=== PATIENT | female | born 1995 | race Caucasian/White ===

== ENCOUNTER 2017-06-25 20:18 | Emergency (ER) | payer OTHER ==
[2017-06-25 20:27] VITALS: RESP 16
[2017-06-25] MEDS ORDERED: ONDANSETRON 4 MG/2 ML VIAL IVP STA (20:45)
[2017-06-25] MEDS ORDERED: FAMOTIDINE 20 MG/2 ML VIAL IV STA (20:45)
[2017-06-25] MEDS ORDERED: SODIUM CHLORIDE 0.9% 1,000 ML IV STA (20:45)
--- NOTE | 2017-06-25 20:49 | ED ---
Abdominal Pain HPI - General Chief Complaint: Abdominal Pain Stated Complaint: Abd pain Time Seen by Provider: 06/25/17 20:40 Source: patient, RN notes reviewed Mode of arrival: ambulatory Limitations: no limitations - History of Present Illness Initial Comments: Is a 21-year-old female presents emergency Department chief complaint abdominal pain started this morning around 5:30 AM. Patient states it's in her midabdomen nonradiating. She states is sharp pain. She states it does affect her epigastric region. Patient states she has been burping more in which it tastes acidic. Patient states that she's had nausea and vomiting throughout the day but denies any fever, chills, diarrhea constipation. She did have normal bowel movement. Denies any chance of . She states that she's had no urinary frequency no hematuria or dysuria. Patient had no prior abdominal surgeries. - Related Data Home Medications Medication Instructions Recorded Confirmed Ethinyl Estradiol/Drospirenone 1 tab PO DAILY 06/25/17 06/25/17 [Chapis 28 Tablet] Previous Rx's Medication Instructions Recorded Omeprazole [PriLOSEC] 20 mg PO AC-BRKFST #14 cap 06/25/17 Ondansetron Odt [Zofran Odt] 4 mg PO Q8HR PRN #10 tab 06/25/17 Allergies Allergy/AdvReac Type Severity Reaction Status Date / Time No Known Allergies Allergy Verified 06/25/17 20:24 Review of Systems ROS Statement: Those systems with pertinent positive or pertinent negative responses have been documented in the HPI. ROS Other: All systems not noted in ROS Statement are negative. Past Medical History Past Medical History: No Reported History History of Any Multi-Drug Resistant Organisms: None Reported Past Surgical History: Adenoidectomy, Ear Surgery, Orthopedic Surgery, Tonsillectomy Additional Past Surgical History / Comment(s): right ankle Past Psychological History: Anxiety Smoking Status: Never smoker Past Alcohol Use History: Rare Past Drug Use History: None Reported General Exam Limitations: no limitations General appearance: alert, in no apparent distress ENT exam: Present: normal oropharynx Neck exam: Present: normal inspection. Absent: tenderness, meningismus, lymphadenopathy Respiratory exam: Present: normal lung sounds bilaterally. Absent: respiratory distress, wheezes, rales, rhonchi, stridor Cardiovascular Exam: Present: regular rate, normal rhythm, normal heart sounds. Absent: systolic murmur, diastolic murmur, rubs, gallop, clicks GI/Abdominal exam: Present: soft, tenderness (Moderate epigastric tenderness), normal bowel sounds. Absent: distended, guarding, rebound, rigid Back exam: Absent: CVA tenderness (R), CVA tenderness (L) Skin exam: Present: warm, dry, intact, normal color. Absent: rash Course Vital Signs 06/25/17 20:24 Temperature 98.2 F Pulse Rate 116 H Respiratory 16 Rate Blood Pressure 134/82 O2 Sat by Pulse 98 Oximetry Medical Decision Making - Medical Decision Making 21-year-old female presented emergency from for abdominal pain. Patient's lab work, x-ray within normal limits. Patient is improved after Pepcid IV fluids and Zofran. He should be discharged with omeprazole and Zofran. Return parameters were discussed. - Lab Data Result diagrams: 06/25/17 21:13 06/25/17 21:13 Lab Results 06/25/17 06/25/17 06/25/17 Range/Units 20:52 20:52 21:13 WBC (3.8-10.6) k/uL RBC (3.80-5.40) m/uL Hgb (11.4-16.0) gm/dL Hct (34.0-46.0) % MCV (80.0-100.0) fL MCH (25.0-35.0) pg MCHC (31.0-37.0) g/dL RDW (11.5-15.5) % Plt Count (150-450) k/uL Neutrophils % % Lymphocytes % % Monocytes % % Eosinophils % % Basophils % % Neutrophils # (1.3-7.7) k/uL Lymphocytes # (1.0-4.8) k/uL Monocytes # (0-1.0) k/uL Eosinophils # (0-0.7) k/uL Basophils # (0-0.2) k/uL Sodium 140 (137-145) mmol/L Potassium 4.2 (3.5-5.1) mmol/L Chloride 105 (98-107) mmol/L Carbon Dioxide 24 (22-30) mmol/L Anion Gap 11 mmol/L BUN 9 (7-17) mg/dL Creatinine 0.77 (0.52-1.04) mg/dL Est GFR (MDRD) Af Amer >60 (>60 ml/min/1.73 sqM) Est GFR (MDRD) Non-Af >60 (>60 ml/min/1.73 sqM) Glucose 109 H (74-99) mg/dL Calcium 9.1 (8.4-10.2) mg/dL Total Bilirubin 0.3 (0.2-1.3) mg/dL AST 19 (14-36) U/L ALT 31 (9-52) U/L Alkaline Phosphatase 78 (38-126) U/L Total Protein 6.9 (6.3-8.2) g/dL Albumin 3.9 (3.5-5.0) g/dL Amylase 31 (30-110) U/L Lipase 85 (23-300) U/L Urine Color Yellow Urine Appearance Clear (Clear) Urine pH 6.0 (5.0-8.0) Ur Specific [place] 1.014 (1.001-1.035) Urine Protein Negative (Negative) Urine Glucose (UA) Negative (Negative) Urine Ketones Negative (Negative) Urine Blood Small H (Negative) Urine Nitrite Negative (Negative) Urine Bilirubin Negative (Negative) Urine Urobilinogen <2.0 (<2.0) mg/dL Ur Leukocyte Esterase Trace H (Negative) Urine RBC 1 (0-5) /hpf Urine WBC 7 H (0-5) /hpf Ur Squamous Epith Cells 5 H (0-4) /hpf Amorphous Sediment Rare H (None) /hpf Urine Bacteria Few H (None) /hpf Urine Mucus Rare H (None) /hpf Urine HCG, Qual Not Detected (Not Detectd) 06/25/17 Range/Units 21:13 WBC 10.4 (3.8-10.6) k/uL RBC 4.54 (3.80-5.40) m/uL Hgb 13.2 (11.4-16.0) gm/dL Hct 38.8 (34.0-46.0) % MCV 85.5 (80.0-100.0) fL MCH 29.0 (25.0-35.0) pg MCHC 33.9 (31.0-37.0) g/dL RDW 13.8 (11.5-15.5) % Plt Count 367 (150-450) k/uL Neutrophils % 54 % Lymphocytes % 37 % Monocytes % 4 % Eosinophils % 3 % Basophils % 0 % Neutrophils # 5.6 (1.3-7.7) k/uL Lymphocytes # 3.9 (1.0-4.8) k/uL Monocytes # 0.4 (0-1.0) k/uL Eosinophils # 0.3 (0-0.7) k/uL Basophils # 0.0 (0-0.2) k/uL Sodium (137-145) mmol/L Potassium (3.5-5.1) mmol/L Chloride (98-107) mmol/L Carbon Dioxide (22-30) mmol/L Anion Gap mmol/L BUN (7-17) mg/dL Creatinine (0.52-1.04) mg/dL Est GFR (MDRD) Af Amer (>60 ml/min/1.73 sqM) Est GFR (MDRD) Non-Af (>60 ml/min/1.73 sqM) Glucose (74-99) mg/dL Calcium (8.4-10.2) mg/dL Total Bilirubin (0.2-1.3) mg/dL AST (14-36) U/L ALT (9-52) U/L Alkaline Phosphatase (38-126) U/L Total Protein (6.3-8.2) g/dL Albumin (3.5-5.0) g/dL Amylase (30-110) U/L Lipase (23-300) U/L Urine Color Urine Appearance (Clear) Urine pH (5.0-8.0) Ur Specific [place] (1.001-1.035) Urine Protein (Negative) Urine Glucose (UA) (Negative) Urine Ketones (Negative) Urine Blood (Negative) Urine Nitrite (Negative) Urine Bilirubin (Negative) Urine Urobilinogen (<2.0) mg/dL Ur Leukocyte Esterase (Negative) Urine RBC (0-5) /hpf Urine WBC (0-5) /hpf Ur Squamous Epith Cells (0-4) /hpf Amorphous Sediment (None) /hpf Urine Bacteria (None) /hpf Urine Mucus (None) /hpf Urine HCG, Qual (Not Detectd) Disposition Clinical Impression: Abdominal pain, Gastritis, Nausea & vomiting Disposition: HOME SELF-CARE Condition: Stable Instructions: Gastritis (ED) Additional Instructions: Please return to the Emergency Department if symptoms worsen or any other concerns. Prescriptions: Omeprazole [PriLOSEC] 20 mg PO AC-BRKFST #14 cap Ondansetron Odt [Zofran Odt] 4 mg PO Q8HR PRN #10 tab PRN Reason: Nausea Referrals: Sarath Sykes DO [Primary Care Provider] - 1-2 days Time of Disposition: 22:02
[2017-06-25 21:10] LABS: Amorphous Sediment,Urine Rare /hpf; Appearance,Urine Clear (Clear); Bacteria,Urine Few /hpf; Bilirubin,Urine Negative (Negative); Glucose,Urine (UA) Negative (Negative); Ketones,Urine Negative (Negative); Leukocyte Esterase,Urine Trace (Negative); Mucus,Urine Rare /hpf; Nitrite,Urine Negative (Negative); Particle Count 3423; Protein,Urine Negative (Negative); RBC,Urine 1 /hpf (0-5); Specific Gravity,Urine 1.014 (1.001-1.035); Squamous Epithelial Cell,Urine 5 /hpf (0-4); UA Billing (MACRO vs. MICRO) MICRO; Urobilinogen,Urine <2.0 mg/dL (<2.0); WBC,Urine 7 /hpf (0-5)
--- NOTE | 2017-06-25 21:31 | XR ---
EXAMINATION TYPE: XR KUB DATE OF EXAM: 06/25/2017 COMPARISON: NONE HISTORY: Flank pain TECHNIQUE: 2 views FINDINGS: Bowel gas pattern is normal. There is no sign of intestinal obstruction or pneumoperitoneum . Fecal pattern is normal. Lung bases are clear. There are no pathologic calcifications over the kidn eys. IMPRESSION: Nonacute abdomen.
[2017-06-25 21:34] LABS: Basophils % (A) 0 %; CH 28.1; Eosinophils # (A) 0.3 k/uL (0-0.7); Eosinophils % (A) 3 %; HCT 38.8 % (34.0-46.0); HDW 2.37; HGB 13.2 gm/dL (11.4-16.0); Luc # (Auto) 0.19; Luc % (Auto) 2; Lymphocytes # (A) 3.9 k/uL (1.0-4.8); Lymphocytes % (A) 37 %; MCHC 33.9 g/dL (31.0-37.0); MCV 85.5 fL (80.0-100.0); Monocytes # (A) 0.4 k/uL (0-1.0); Monocytes % (A) 4 %; Neutrophils # (A) 5.6 k/uL (1.3-7.7); Neutrophils % (A) 54 %; RBC 4.54 m/uL (3.80-5.40); RDW 13.8 % (11.5-15.5); WBC 10.4 k/uL (3.8-10.6); WBC (Perox) 10.34
[2017-06-25 21:42] LABS: ALT 31 U/L (9-52); AST 19 U/L (14-36); Alkaline Phosphatase 78 U/L (38-126); Amylase 31 U/L (30-110); Anion Gap 11 mmol/L; Blood Urea Nitrogen 9 mg/dL (7-17); Calcium 9.1 mg/dL (8.4-10.2); Carbon Dioxide 24 mmol/L (22-30); Chloride 105 mmol/L (98-107); Glucose 109 mg/dL (74-99); Non-African American GFR(MDRD) >60 (>60 ml/min/1.73 sqM); Potassium 4.2 mmol/L (3.5-5.1); Sodium 140 mmol/L (137-145); Total Bilirubin 0.3 mg/dL (0.2-1.3); Total Protein 6.9 g/dL (6.3-8.2)
[2017-06-25 22:08] VITALS: BP 129/66; PULSE 87; TEMP 97.9
--- NOTE | 2017-06-29 02:08 | CDI ---
Documentation Clarification OP Dear Dr.Christophe Epifanio Tomas Please do addendum to ED report for missing NS stop time. Thank you, [place] [employer] If you have any questions, please contact Employment Interviewer at [phone] [facility]
== END 2017-06-25 22:10 | disposition home or self-care (01) ==
LOC: EC 20:18
DX: K29.70 Gastritis, unspecified, without bleeding (principal); Z79.3 Long term (current) use of hormonal contraceptives
CPT/HCPCS: 36415; 80053; 82150; 83690; 85025; 81001; 81025; 74000; 99284; 96374; 96375; J2405

== ENCOUNTER → 2017-08-07 | Outpatient (CLI) | payer OTHER ==
--- NOTE | 2017-08-07 08:37 | US ---
EXAMINATION TYPE: US abdomen complete DATE OF EXAM: 08/07/2017 COMPARISON: NONE CLINICAL HISTORY: R10.11 Right upper quadrant pain. Abd pain with vomiting on and off for months EXAM MEASUREMENTS: Liver Length: 14.8 cm Gallbladder Wall: 0.2 cm CBD: 0.5 cm Spleen: 10.9 cm Right Kidney: 9.5 x 4.8 x 4.3 cm Left Kidney: 10.9 x 4.9 x 5.6 cm overlying bowel gas and body habitus limits exam Pancreas: portions seen appear wnl Liver: difficult to penetrate with intercostal imaging included. Portal triads are well visualized a nd hepatic echotexture is homogeneous. Gallbladder: wnl Evidence for sonographic Mcnulty's sign: no CBD: wnl Spleen: wnl Right Kidney: wnl Left Kidney: wnl Upper IVC: wnl Abd Aorta: wnl IMPRESSION: No sonographic evidence of cholelithiasis or cholecystitis. Unremarkable abdominal ultras ound.
== END ==
LOC: RADUSWWP 06:49
PROVIDERS: ATTEND Family Medicine
DX: R10.11 Right upper quadrant pain (principal)
CPT/HCPCS: 76700

== ENCOUNTER 2018-02-23 00:58 | Emergency (ER) | payer OTHER ==
[2018-02-23 01:06] VITALS: BP 146/94; PULSE 100; RESP 18; TEMP 98
[2018-02-23] MEDS ORDERED: KETOROLAC 30 MG/ML 1 ML VIAL IM STA (01:59)
[2018-02-23] MEDS ORDERED: ORPHENADRINE 30 MG/ML 2 ML VIAL IM STA (01:59)
--- NOTE | 2018-02-23 02:02 | ED ---
Back Pain HPI - General Chief Complaint: Back Pain/Injury Stated Complaint: back pain radiating to hips Time Seen by Provider: 02/23/18 01:47 Source: patient Limitations: physical limitation - History of Present Illness Initial Comments: 22-year-old female patient percents to the emergency department today for evaluation of increased lower back pain. Patient states that she has problems with her back for the last 2 years. Patient states that recently got rid of their bed and she has been sleeping on the floor. States that her back pain has been worse for the last 2 days. She denies any radiation of the pain down her legs. Denies any numbness, tingling, loss of bowel or bladder control, or saddle anesthesia. Denies any hematuria, dysuria, urinary frequency, urinary urgency. She denies any chance of , states that she takes control. Denies any significant change to her pain, states it is just worse in severity. She denies any falls or injuries. Patient denies any recent rash, fever, chills, shortness breath, chest pain, abdominal pain, nausea, vomiting, diarrhea, constipation, dizziness, weakness, headache, visual changes, or any other complaints. - Related Data Home Medications Medication Instructions Recorded Confirmed Ethinyl Estradiol/Drospirenone 1 tab PO DAILY 06/25/17 06/25/17 [Chapis 28 Tablet] Previous Rx's Medication Instructions Recorded Omeprazole [PriLOSEC] 20 mg PO AC-BRKFST #14 cap 06/25/17 Ondansetron Odt [Zofran Odt] 4 mg PO Q8HR PRN #10 tab 06/25/17 Cyclobenzaprine [Flexeril] 10 mg PO TID #15 tab 02/23/18 Ibuprofen [Motrin] 600 mg PO Q8HR PRN #30 tab 02/23/18 Allergies Allergy/AdvReac Type Severity Reaction Status Date / Time No Known Allergies Allergy Verified 02/23/18 01:06 Review of Systems ROS Statement: Those systems with pertinent positive or pertinent negative responses have been documented in the HPI. ROS Other: All systems not noted in ROS Statement are negative. Past Medical History Past Medical History: No Reported History History of Any Multi-Drug Resistant Organisms: None Reported Past Surgical History: Adenoidectomy, Ear Surgery, Orthopedic Surgery, Tonsillectomy Additional Past Surgical History / Comment(s): right ankle, Past Psychological History: Anxiety Smoking Status: Current some day smoker Past Alcohol Use History: Occasional Past Drug Use History: None Reported General Exam Limitations: physical limitation General appearance: alert, in no apparent distress, other (This is a well- developed, well-nourished adult female patient in no acute distress. Vital signs upon presentation are temperature 98.0F, pulse 100, respirations 18, blood pressure 146/94, pulse ox 96% on room air.) Eye exam: Present: normal appearance, PERRL, EOMI. Absent: scleral icterus, conjunctival injection, periorbital swelling ENT exam: Present: normal exam, normal oropharynx, mucous membranes moist Respiratory exam: Present: normal lung sounds bilaterally. Absent: respiratory distress, wheezes, rales, rhonchi, stridor Cardiovascular Exam: Present: regular rate, normal rhythm, normal heart sounds. Absent: systolic murmur, diastolic murmur, rubs, gallop, clicks GI/Abdominal exam: Present: soft, normal bowel sounds. Absent: distended, tenderness, guarding, rebound, rigid Extremities exam: Present: normal inspection, full ROM, normal capillary refill , other (Lower eduction razor pink, warm, and dry. Cap refills less than 3 seconds. Post tibial pulses are 2+ and equal bilaterally.). Absent: tenderness , pedal edema, joint swelling, calf tenderness Back exam: Present: normal inspection. Absent: vertebral tenderness Neurological exam: Present: alert, oriented X3, CN II-XII intact Psychiatric exam: Present: normal affect, normal mood Skin exam: Present: warm, dry, intact, normal color. Absent: rash Course Vital Signs 02/23/18 01:02 Temperature 98.0 F Pulse Rate 100 Respiratory 18 Rate Blood Pressure 146/94 O2 Sat by Pulse 96 Oximetry Medical Decision Making - Medical Decision Making 22-year-old female patient presented to the emergency department today for complaints of increased back pain after slipping on the floor for over a week. Physical examination is unremarkable. Patient is neurologically intact. Urinalysis is negative for infection. Patient is not . We'll discharge home with anti-inflammatories and muscle relaxers. She is instructed to follow-up with her primary care physician for recheck in 1-2 days. Return parameters discussed in detail. She verbalizes understanding and agrees with this plan. - Lab Data Lab Results 02/23/18 02/23/18 Range/Units 01:48 01:48 Urine Color Yellow Urine Appearance Cloudy H (Clear) Urine pH 6.0 (5.0-8.0) Ur Specific [place] 1.024 (1.001-1.035) Urine Protein Trace H (Negative) Urine Glucose (UA) Negative (Negative) Urine Ketones Negative (Negative) Urine Blood Negative (Negative) Urine Nitrite Negative (Negative) Urine Bilirubin Negative (Negative) Urine Urobilinogen <2.0 (<2.0) mg/dL Ur Leukocyte Esterase Small H (Negative) Urine RBC 2 (0-5) /hpf Urine WBC 3 (0-5) /hpf Ur Squamous Epith Cells 11 H (0-4) /hpf Urine Mucus Moderate H (None) /hpf Urine HCG, Qual Not Detected (Not Detectd) Disposition Clinical Impression: Acute exacerbation of chronic low back pain Disposition: HOME SELF-CARE Condition: Good Instructions: Chronic Back Pain (ED) Additional Instructions: Apply warm moist heat to the back. Take medications as directed. Follow up with her primary care physician for recheck. Return here immediately for any new, worsening, or concerning symptoms. Prescriptions: Cyclobenzaprine [Flexeril] 10 mg PO TID #15 tab Ibuprofen [Motrin] 600 mg PO Q8HR PRN #30 tab PRN Reason: Pain Is patient prescribed a controlled substance at d/c from ED?: No Referrals: Sarath Sykes DO [Primary Care Provider] - 1-2 days Time of Disposition: 02:42
[2018-02-23 02:15] LABS: Appearance,Urine Cloudy (Clear); Bilirubin,Urine Negative (Negative); Blood,Urine Negative (Negative); Color,Urine Yellow; Glucose,Urine (UA) Negative (Negative); Ketones,Urine Negative (Negative); Leukocyte Esterase,Urine Small (Negative); Mucus,Urine Moderate /hpf; Nitrite,Urine Negative (Negative); Protein,Urine Trace (Negative); RBC,Urine 2 /hpf (0-5); Specific Gravity,Urine 1.024 (1.001-1.035); Squamous Epithelial Cell,Urine 11 /hpf (0-4); Urobilinogen,Urine <2.0 mg/dL (<2.0); WBC,Urine 3 /hpf (0-5)
== END 2018-02-23 02:57 | disposition home or self-care (01) ==
LOC: EC 00:58
DX: M54.5 Low back pain (principal); G89.29 Other chronic pain; F17.200 Nicotine dependence, unspecified, uncomplicated; Z79.3 Long term (current) use of hormonal contraceptives
CPT/HCPCS: 81001; 81025; 99283; 96372 ×2; J2360; J1885

== ENCOUNTER 2018-05-25 21:23 | Emergency (ER) | payer OTHER ==
--- NOTE | 2018-05-25 22:49 | ED ---
General Adult HPI - General Chief complaint: Chest Pain Stated complaint: Chest pain Time Seen by Provider: 05/25/18 22:39 Source: patient, RN notes reviewed Mode of arrival: ambulatory Limitations: no limitations - History of Present Illness Initial comments: Patient is a pleasant 22-year-old female presenting to the emergency department with chest discomfort. Onset was just around an hour ago. Patient was smoking and had a coughing spell. Patient developed chest discomfort shortly after that. Discomfort is sharp and in the sternal region. Discomfort does increase with positional changes. Patient also has some lower back discomfort however this is chronic and unchanged. No leg pain or leg swelling. No dyspnea - Related Data Home Medications Medication Instructions Recorded Confirmed Acetaminophen/Diphenhydramine 1 tab PO HS PRN 05/25/18 05/25/18 [Tylenol PM Extra Strength] Vitamin C/Biotin [Hair, Skin and 1 tab PO DAILY 05/25/18 05/25/18 Nails] Allergies Allergy/AdvReac Type Severity Reaction Status Date / Time No Known Allergies Allergy Verified 05/25/18 22:58 Review of Systems ROS Statement: Those systems with pertinent positive or pertinent negative responses have been documented in the HPI. ROS Other: All systems not noted in ROS Statement are negative. Constitutional: Denies: fever Eyes: Denies: eye pain ENT: Denies: ear pain Respiratory: Reports: cough. Denies: dyspnea Cardiovascular: Reports: chest pain Endocrine: Denies: fatigue Gastrointestinal: Denies: abdominal pain Genitourinary: Denies: dysuria Musculoskeletal: Reports: back pain (Chronic) Skin: Denies: rash Neurological: Denies: weakness Past Medical History Past Medical History: No Reported History Additional Past Medical History / Comment(s): chronic back pain History of Any Multi-Drug Resistant Organisms: None Reported Past Surgical History: Adenoidectomy, Ear Surgery, Orthopedic Surgery, Tonsillectomy Additional Past Surgical History / Comment(s): right ankle, Past Psychological History: Anxiety Smoking Status: Current every day smoker Past Alcohol Use History: Occasional Past Drug Use History: None Reported General Exam Limitations: no limitations General appearance: alert, in no apparent distress Head exam: Present: atraumatic Eye exam: Present: normal appearance, PERRL ENT exam: Present: normal oropharynx Neck exam: Present: normal inspection Respiratory exam: Present: normal lung sounds bilaterally, chest wall tenderness Cardiovascular Exam: Present: regular rate, normal rhythm Expanded Peripheral pulses: 2+: Dorsalis Pedis (R), Dorsalis Pedis (L) GI/Abdominal exam: Present: soft. Absent: distended, tenderness Extremities exam: Present: normal inspection. Absent: pedal edema, calf tenderness Back exam: Present: normal inspection. Absent: tenderness, vertebral tenderness Neurological exam: Present: alert Psychiatric exam: Present: normal affect, normal mood Skin exam: Present: normal color Course Vital Signs 05/25/18 21:45 Temperature 99.1 F Pulse Rate 101 H Respiratory 20 Rate Blood Pressure 122/86 O2 Sat by Pulse 100 Oximetry EKG Findings - EKG Comments: EKG Findings:: Normal sinus rhythm 90. NH 112. QRS 82. QT 382. QTC were 37. Normal axis. Normal QRS. No acute ST change. Medical Decision Making - Medical Decision Making Patient reevaluated and resting comfortably in bed. Patient states symptoms have somewhat improved. Patient updated on results. - Lab Data Result diagrams: 05/25/18 23:26 05/25/18 23:26 Lab Results 05/25/18 05/25/18 05/25/18 Range/Units 23:10 23:10 23:26 WBC 11.1 H (3.8-10.6) k/uL RBC 4.49 (3.80-5.40) m/uL Hgb 11.4 (11.4-16.0) gm/dL Hct 36.1 (34.0-46.0) % MCV 80.3 (80.0-100.0) fL MCH 25.4 (25.0-35.0) pg MCHC 31.6 (31.0-37.0) g/dL RDW 14.1 (11.5-15.5) % Plt Count 321 (150-450) k/uL Neutrophils % 57 % Lymphocytes % 36 % Monocytes % 5 % Eosinophils % 1 % Basophils % 0 % Neutrophils # 6.3 (1.3-7.7) k/uL Lymphocytes # 3.9 (1.0-4.8) k/uL Monocytes # 0.6 (0-1.0) k/uL Eosinophils # 0.1 (0-0.7) k/uL Basophils # 0.0 (0-0.2) k/uL PT (9.0-12.0) sec INR (<1.2) APTT (22.0-30.0) sec D-Dimer (<0.60) mg/L FEU Sodium (137-145) mmol/L Potassium (3.5-5.1) mmol/L Chloride (98-107) mmol/L Carbon Dioxide (22-30) mmol/L Anion Gap mmol/L BUN (7-17) mg/dL Creatinine (0.52-1.04) mg/dL Est GFR (CKD-EPI)AfAm (>60 ml/min/1.73 sqM) Est GFR (CKD-EPI)NonAf (>60 ml/min/1.73 sqM) Glucose (74-99) mg/dL Calcium (8.4-10.2) mg/dL Total Bilirubin (0.2-1.3) mg/dL AST (14-36) U/L ALT (9-52) U/L Alkaline Phosphatase (38-126) U/L Total Protein (6.3-8.2) g/dL Albumin (3.5-5.0) g/dL Urine Color Yellow Urine Appearance Cloudy H (Clear) Urine pH 6.0 (5.0-8.0) Ur Specific [place] 1.019 (1.001-1.035) Urine Protein Trace H (Negative) Urine Glucose (UA) Negative (Negative) Urine Ketones Negative (Negative) Urine Blood Negative (Negative) Urine Nitrite Negative (Negative) Urine Bilirubin Negative (Negative) Urine Urobilinogen <2.0 (<2.0) mg/dL Ur Leukocyte Esterase Large H (Negative) Urine RBC 3 (0-5) /hpf Urine WBC 25 H (0-5) /hpf Urine WBC Clumps Occasional H (None) /hpf Ur Squamous Epith Cells 8 H (0-4) /hpf Urine Bacteria Few H (None) /hpf Urine Mucus Occasional H (None) /hpf Urine HCG, Qual Not Detected (Not Detectd) 05/25/18 05/25/18 Range/Units 23:26 23:26 WBC (3.8-10.6) k/uL RBC (3.80-5.40) m/uL Hgb (11.4-16.0) gm/dL Hct (34.0-46.0) % MCV (80.0-100.0) fL MCH (25.0-35.0) pg MCHC (31.0-37.0) g/dL RDW (11.5-15.5) % Plt Count (150-450) k/uL Neutrophils % % Lymphocytes % % Monocytes % % Eosinophils % % Basophils % % Neutrophils # (1.3-7.7) k/uL Lymphocytes # (1.0-4.8) k/uL Monocytes # (0-1.0) k/uL Eosinophils # (0-0.7) k/uL Basophils # (0-0.2) k/uL PT 10.2 (9.0-12.0) sec INR 1.0 (<1.2) APTT 22.9 (22.0-30.0) sec D-Dimer 0.28 (<0.60) mg/L FEU Sodium 139 (137-145) mmol/L Potassium 4.1 (3.5-5.1) mmol/L Chloride 105 (98-107) mmol/L Carbon Dioxide 27 (22-30) mmol/L Anion Gap 7 mmol/L BUN 14 (7-17) mg/dL Creatinine 0.70 (0.52-1.04) mg/dL Est GFR (CKD-EPI)AfAm >90 (>60 ml/min/1.73 sqM) Est GFR (CKD-EPI)NonAf >90 (>60 ml/min/1.73 sqM) Glucose 99 (74-99) mg/dL Calcium 8.8 (8.4-10.2) mg/dL Total Bilirubin 0.2 (0.2-1.3) mg/dL AST 23 (14-36) U/L ALT 31 (9-52) U/L Alkaline Phosphatase 75 (38-126) U/L Total Protein 5.8 L (6.3-8.2) g/dL Albumin 3.5 (3.5-5.0) g/dL Urine Color Urine Appearance (Clear) Urine pH (5.0-8.0) Ur Specific [place] (1.001-1.035) Urine Protein (Negative) Urine Glucose (UA) (Negative) Urine Ketones (Negative) Urine Blood (Negative) Urine Nitrite (Negative) Urine Bilirubin (Negative) Urine Urobilinogen (<2.0) mg/dL Ur Leukocyte Esterase (Negative) Urine RBC (0-5) /hpf Urine WBC (0-5) /hpf Urine WBC Clumps (None) /hpf Ur Squamous Epith Cells (0-4) /hpf Urine Bacteria (None) /hpf Urine Mucus (None) /hpf Urine HCG, Qual (Not Detectd) - Radiology Data Radiology results: image reviewed (Chest x-ray shows no acute process) Disposition Clinical Impression: Chest pain Disposition: HOME SELF-CARE Condition: Stable Instructions: Chest Pain (ED) Additional Instructions: Please follow-up with primary care physician in the next day or 2 for recheck. Return for fevers, difficulty breathing, change or worsening in symptoms or other concerns. Is patient prescribed a controlled substance at d/c from ED?: No Referrals: Sarath Sykes DO [Primary Care Provider] - 1-2 days Time of Disposition: 00:12
[2018-05-25 23:22] LABS: Appearance,Urine Cloudy (Clear); Bacteria,Urine Few /hpf; Bilirubin,Urine Negative (Negative); Blood,Urine Negative (Negative); Color,Urine Yellow; Glucose,Urine (UA) Negative (Negative); Ketones,Urine Negative (Negative); Leukocyte Esterase,Urine Large (Negative); Mucus,Urine Occasional /hpf; Nitrite,Urine Negative (Negative); Protein,Urine Trace (Negative); RBC,Urine 3 /hpf (0-5); Specific Gravity,Urine 1.019 (1.001-1.035); Squamous Epithelial Cell,Urine 8 /hpf (0-4); Urobilinogen,Urine <2.0 mg/dL (<2.0); WBC,Urine 25 /hpf (0-5)
--- NOTE | 2018-05-25 23:25 | XR ---
EXAMINATION TYPE: XR chest 2V DATE OF EXAM: 05/25/2018 COMPARISON: NONE HISTORY: Chest pain TECHNIQUE: Frontal and lateral views of the chest are obtained. FINDINGS: Heart and mediastinum are normal. Lungs are clear. Diaphragm is normal. Bony thorax appear s normal. IMPRESSION: Normal chest
[2018-05-25 23:44] LABS: Basophils % (A) 0 %; Eosinophils # (A) 0.1 k/uL (0-0.7); Eosinophils % (A) 1 %; HCT 36.1 % (34.0-46.0); HGB 11.4 gm/dL (11.4-16.0); Lymphocytes # (A) 3.9 k/uL (1.0-4.8); Lymphocytes % (A) 36 %; MCH 25.4 pg (25.0-35.0); MCHC 31.6 g/dL (31.0-37.0); MCV 80.3 fL (80.0-100.0); Monocytes # (A) 0.6 k/uL (0-1.0); Monocytes % (A) 5 %; Neutrophils # (A) 6.3 k/uL (1.3-7.7); Neutrophils % (A) 57 %; Platelet Count 321 k/uL (150-450); RBC 4.49 m/uL (3.80-5.40); RDW 14.1 % (11.5-15.5); WBC 11.1 k/uL (3.8-10.6)
[2018-05-25 23:55] LABS: ALT 31 U/L (9-52); AST 23 U/L (14-36); Albumin 3.5 g/dL (3.5-5.0); Alkaline Phosphatase 75 U/L (38-126); Anion Gap 7 mmol/L; Blood Urea Nitrogen 14 mg/dL (7-17); Calcium 8.8 mg/dL (8.4-10.2); Carbon Dioxide 27 mmol/L (22-30); Chloride 105 mmol/L (98-107); Glucose 99 mg/dL (74-99); Potassium 4.1 mmol/L (3.5-5.1); Sodium 139 mmol/L (137-145); Total Bilirubin 0.2 mg/dL (0.2-1.3); Total Protein 5.8 g/dL (6.3-8.2)
[2018-05-25 23:58] LABS: D-Dimer 0.28 mg/L FEU (<0.60); Partial Thromboplastin Time 22.9 sec (22.0-30.0); Prothrombin Time 10.2 sec (9.0-12.0)
[2018-05-26] MEDS ORDERED: KETOROLAC 30 MG/ML 1 ML VIAL IVP STA (00:11)
[2018-05-26 00:24] VITALS: BP 130/74; PULSE 98; RESP 17; TEMP 97.6
== END 2018-05-26 00:24 | disposition home or self-care (01) ==
LOC: EC 21:23
DX: R07.89 Other chest pain (principal); F17.200 Nicotine dependence, unspecified, uncomplicated; Z79.899 Other long term (current) drug therapy
CPT/HCPCS: 36415; 93005; 85379; 80053; 85025; 85610; 85730; 81001; 81025; 71046; 99285; 96374; J1885

== ENCOUNTER 2018-06-08 21:56 | Emergency (ER) | payer OTHER ==
[2018-06-08 22:02] VITALS: BP 134/90; PULSE 89; RESP 18; TEMP 99
[2018-06-08] MEDS ORDERED: KETOROLAC 30 MG/ML 1 ML VIAL IM STA (22:23)
--- NOTE | 2018-06-08 22:23 | ED ---
Back Pain HPI - General Chief Complaint: Back Pain/Injury Stated Complaint: back pain Time Seen by Provider: 06/08/18 22:22 Source: patient Limitations: no limitations - History of Present Illness Initial Comments: 22-year-old female past medical history of chronic low-back pain who presents today for chief complaint of low back pain. Patient states that this might she woke up with increased low back pain from her baseline she stated that the pain was 8 out of 10 in the lumbar spine with radiation down the right leg. Patient stated that she taken up the pain. We spoke this evening the pain returned she decided to presents to emergency department for evaluation. Patient denies any dysuria, urgency, frequency, fever, chills, hematuria, IV drug use, recent weight loss, numbness, tingling, paresthesias, loss of sensation or muscle weakness of the lower external ears, saddle anesthesias, loss of bowel bladder control, or urinary retention, chest pain, shorts breath or any other symptoms. - Related Data Home Medications Medication Instructions Recorded Confirmed Acetaminophen/Diphenhydramine 1 tab PO HS PRN 05/25/18 05/25/18 [Tylenol PM Extra Strength] Vitamin C/Biotin [Hair, Skin and 1 tab PO DAILY 05/25/18 05/25/18 Nails] Previous Rx's Medication Instructions Recorded Ibuprofen [Motrin] 800 mg PO Q6H PRN 5 Days #20 tab 06/08/18 Allergies Allergy/AdvReac Type Severity Reaction Status Date / Time No Known Allergies Allergy Verified 06/08/18 22:03 Review of Systems ROS Statement: Those systems with pertinent positive or pertinent negative responses have been documented in the HPI. ROS Other: All systems not noted in ROS Statement are negative. Constitutional: Denies: fever, chills, weight change, night sweats Eyes: Denies: vision change ENT: Denies: ear pain Respiratory: Denies: cough, dyspnea, wheezes, hemoptysis, stridor Cardiovascular: Denies: chest pain, palpitations, orthopnea, edema Gastrointestinal: Denies: abdominal pain, nausea, vomiting, diarrhea, constipation Genitourinary: Denies: urgency, dysuria, frequency, hematuria Musculoskeletal: Reports: back pain. Denies: joint swelling, arthralgia Skin: Denies: rash, lesions Neurological: Denies: headache, weakness, numbness, paresthesias, confusion, abnormal gait Past Medical History Past Medical History: No Reported History Additional Past Medical History / Comment(s): chronic back pain History of Any Multi-Drug Resistant Organisms: None Reported Past Surgical History: Adenoidectomy, Ear Surgery, Orthopedic Surgery, Tonsillectomy Additional Past Surgical History / Comment(s): right ankle, Past Psychological History: Anxiety Smoking Status: Current every day smoker Past Alcohol Use History: Occasional Past Drug Use History: None Reported General Exam - General Exam Comments Initial Comments: General: The patient is awake and alert, in no distress, and does not appear acutely ill. Eye: Pupils are equal, round and reactive to light, extra-ocular movements are intact. No nystagmus. There is normal conjunctiva bilaterally. No signs of icterus. Ears, nose, mouth and throat: There are moist mucous membranes and no oral lesions. Neck: The neck is supple, there is no tenderness or JVD. Cardiovascular: There is a regular rate and rhythm. No murmur, rub or gallop is appreciated. Respiratory: Lungs are clear to auscultation, respirations are non-labored, breath sounds are equal. No wheezes, stridor, rales, or rhonchi. Musculoskeletal: Full range of motion with for flexion, extension, lateral flexion, rotation of the lumbar spine. Strength 5/5 of the lower extremities equally bilaterally. Sensation intact of the lower extremities equally bilaterally. DP pulses equal bilaterally 2+. Patient is able to heel and toe walk without difficulty. Tenderness to palpation midline over the lumbar spine. No rashes or lesions of the lumbar spine. Mild paravertebral tenderness on the right side. No CVA tenderness. +2 deep tendon reflexes of the lower extremities bilaterally. No evidence of myoclonus. No saddle paresthesia Neurological: A&O x 3. CN II-XII intact, There are no obvious motor or sensory deficits. Coordination appears grossly intact. Speech is normal. Skin: Skin is warm and dry and no rashes or lesions are noted. Psychiatric: Cooperative, appropriate mood & affect, normal judgment. Limitations: no limitations Course Vital Signs 06/08/18 22:00 Temperature 99 F Pulse Rate 89 Respiratory 18 Rate Blood Pressure 134/90 O2 Sat by Pulse 97 Oximetry Medical Decision Making - Medical Decision Making Patient given 30 mg IM injection of Toradol which he stated helped her low back slightly. X-rays lumbar spine revealed no acute process. Patient neurovascularly intact, no concern for cauda equina at this time. This is most likely lumbar strain. Remainder of ROS negative. Case is discussed with Dr. Dumont at this time we feel the patient is stable for discharge with primary care follow-up in 1-2 days as with RX for ibuprofen 800 for pain management as needed. Patient agreed plan and is discharged in stable condition. Disposition Clinical Impression: Low back pain Disposition: HOME SELF-CARE Condition: Good Instructions: Acute Low Back Pain (ED), Chronic Back Pain (ED) Additional Instructions: Please use over the counter medication as discussed. Please follow-up with family doctor in the next 2 days.. Please return to emergency room if the symptoms increase or worsen or for any other concerns. Prescriptions: Ibuprofen [Motrin] 800 mg PO Q6H PRN 5 Days #20 tab PRN Reason: Pain Is patient prescribed a controlled substance at d/c from ED?: No Referrals: Sarath Sykes DO [Primary Care Provider] - 1-2 days Time of Disposition: 22:53
--- NOTE | 2018-06-08 22:45 | XR ---
EXAMINATION TYPE: XR lumbar spine 2 or 3V DATE OF EXAM: 06/08/2018 COMPARISON: NONE HISTORY: Back pain TECHNIQUE: 3 views FINDINGS: Lumbar vertebra have normal spacing and alignment. Posterior elements are intact. Sacroilia c joints appear intact. IMPRESSION: Normal lumbar spine.
== END 2018-06-08 23:00 | disposition home or self-care (01) ==
LOC: EC 21:56
DX: M54.5 Low back pain (principal); F17.200 Nicotine dependence, unspecified, uncomplicated
CPT/HCPCS: 72100; 96372; 99283

== ENCOUNTER 2018-08-17 03:32 | Emergency (ER) | payer OTHER ==
[2018-08-17 03:39] VITALS: TEMP 98.6
[2018-08-17] MEDS ORDERED: SODIUM CHLORIDE 0.9% 500 ML 500 ML IV STA (03:43)
--- NOTE | 2018-08-17 04:07 | ED ---
Chest Pain HPI - General Chief Complaint: Chest Pain Stated Complaint: Racing heart Time Seen by Provider: 08/17/18 03:43 Source: patient Mode of arrival: ambulatory Limitations: no limitations - History of Present Illness Initial Comments: Dannielle is a morbidly obese 22-year-old female who presents the ED today via private vehicle for evaluation of chest pain and palpitations. 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 She used a nap on her phone to check her heart rate and noted that it was varying between [id number]. This made her worried and prompted her to come to the ER for evaluation. Patient reports that she had vague chest pain with these palpitations. She reports recent shortness of breath and states that she has been smoking less of her face due to the shortness of breath. She states she did not use her baby at all today. The patient has no personal cardiac history, no history of DVT or PE, she is currently not on any estrogen supplementation, has not had any recent long distance travel or leg immobilization, she has no known family history of clotting disorders. She does have a family history positive for early cardiac disease including an uncle who from congestive heart failure at age of 36. She is uncertain of other circumstances relating to his . She also states she had a grandfather that had a bad heart. Patient reports that she has occasional caffeine but didn't have any today. She denies any diet or workout supplementation. She denies any energy pills. She denies any caffeine intake to her knowledge. She denies any chocolate intake. - Related Data Allergies Allergy/AdvReac Type Severity Reaction Status Date / Time milk Allergy Nausea & Verified 08/17/18 03:39 Vomiting Review of Systems ROS Statement: Those systems with pertinent positive or pertinent negative responses have been documented in the HPI. ROS Other: All systems not noted in ROS Statement are negative. EKG Findings - EKG Comments: EKG Findings:: EKG obtained at 3:52 AM, rate is 85, rhythm is sinus, there is normal axis, normal intervals, IN 116, QRS is 86, QTC is 435. There are no acute ST elevations or depressions no evidence of acute ischemia, infarction or arrhythmia. Past Medical History Past Medical History: No Reported History Additional Past Medical History / Comment(s): chronic back pain History of Any Multi-Drug Resistant Organisms: None Reported Past Surgical History: Adenoidectomy, Ear Surgery, Orthopedic Surgery, Tonsillectomy Additional Past Surgical History / Comment(s): right ankle, Past Psychological History: Anxiety, Depression Smoking Status: Current every day smoker Past Alcohol Use History: Occasional Past Drug Use History: None Reported General Exam - General Exam Comments Initial Comments: Physical Exam GENERAL: Morbidly obese female resting verbally in no acute distress HENT: Normocephalic, Atraumatic. EYES: PERRL, EOMI PULMONARY: Unlabored respirations. No audible rales rhonchi or wheezing was noted. CARDIOVASCULAR: There is a regular rate and rhythm without any murmurs gallops or rubs. ABDOMEN: Soft and nontender with normal bowel sounds. SKIN: Skin is clear with no lesions or rashes and otherwise unremarkable. : Deferred NEUROLOGIC: Patient is alert and oriented x3. Moving all extremities spontaneously MUSCULOSKELETAL: Normal extremities with adequate strength and full range of motion. No lower extremity swelling or edema. No calf tenderness. PSYCHIATRIC: Normal psychiatric evaluation. Limitations: no limitations Limitations: no limitations Course Vital Signs 08/17/18 08/17/18 03:35 04:35 Temperature 98.6 F Pulse Rate 96 87 Respiratory 18 16 Rate Blood Pressure 148/86 117/74 O2 Sat by Pulse 100 99 Oximetry Chest Pain [facility] Patient was seen and examined, history was obtained from the patient Obese 22-year-old female with no significant past medical history presents with palpitations and chest pain which occurred while at work, resolved prior to arrival Patient's risk factors include obesity, tobacco abuse and a family history of an uncle who of heart disease at the age of 36 Initial EKG sinus rhythm with no acute ST elevations or depressions no evidence of acute ischemia, infarction or arrhythmia Labs and imaging were unremarkable. D-dimer and troponin negative. Chest x- rays no acute findings. Patient remained in sinus rhythm with heart rate in the 70s to 80s throughout her ED visit. Patient remained comfortable throughout her ED visit. Aced on patient's history, physical exam, labs and imaging I do not feel there is an emergent intrathoracic process going on. I do not feel the patient has acute coronary syndrome, pneumothorax, pulmonary embolism, pneumonia or aortic dissection. Results were discussed with the patient, she admits that she had been drinking caffeine heavily through the day but hadn't had any for 1 PM so did not think it related to her palpitations. In addition she does smoke a though she had not done that during her shift at work. I suspect these 2 things contribute significantly of the patient's palpitations. Importance of oral hydration was discussed. Return parameters discussed. Patient was discharged home in stable condition. Disposition Clinical Impression: Heart palpitations Disposition: HOME SELF-CARE Condition: Good Instructions: Chest Pain (ED), Heart Palpitations (ED) Is patient prescribed a controlled substance at d/c from ED?: No Referrals: Sarath Sykes DO [Primary Care Provider] - 1-2 days
[2018-08-17 04:20] LABS: ALT 34 U/L (9-52); AST 23 U/L (14-36); Albumin 4.2 g/dL (3.5-5.0); Alkaline Phosphatase 94 U/L (38-126); Anion Gap 9 mmol/L; Blood Urea Nitrogen 16 mg/dL (7-17); Calcium 9.3 mg/dL (8.4-10.2); Carbon Dioxide 27 mmol/L (22-30); Chloride 103 mmol/L (98-107); Glucose 115 mg/dL (74-99); Magnesium 1.9 mg/dL (1.6-2.3); Potassium 4.1 mmol/L (3.5-5.1); Sodium 139 mmol/L (137-145); Total Bilirubin 0.3 mg/dL (0.2-1.3)
[2018-08-17 04:31] LABS: Basophils # (A) 0.1 k/uL (0-0.2); Basophils % (A) 0 %; Eosinophils # (A) 0.2 k/uL (0-0.7); Eosinophils % (A) 1 %; HCT 36.4 % (34.0-46.0); HGB 11.5 gm/dL (11.4-16.0); Lymphocytes # (A) 5.1 k/uL (1.0-4.8); Lymphocytes % (A) 46 %; MCH 26.2 pg (25.0-35.0); MCHC 31.6 g/dL (31.0-37.0); MCV 82.7 fL (80.0-100.0); Mean Platelet Volume 6.6; Monocytes # (A) 0.6 k/uL (0-1.0); Monocytes % (A) 5 %; Neutrophils % (A) 45 %; Platelet Count 400 k/uL (150-450); RDW 14.9 % (11.5-15.5); WBC 11.2 k/uL (3.8-10.6)
[2018-08-17 04:37] VITALS: BP 117/74; PULSE 87; RESP 16
[2018-08-17 04:41] LABS: D-Dimer 0.33 mg/L FEU (<0.60); Partial Thromboplastin Time 23.6 sec (22.0-30.0); Prothrombin Time 10.2 sec (9.0-12.0)
--- NOTE | 2018-08-17 05:09 | XR ---
EXAMINATION TYPE: XR chest 2V DATE OF EXAM: 08/17/2018 COMPARISON: 05/25/2018 HISTORY: Chest pain TECHNIQUE: Frontal and lateral views of the chest are obtained. FINDINGS: Heart and mediastinum are normal. Lungs are clear. Diaphragm is normal. Bony thorax appear s normal. IMPRESSION: Normal chest. No change.
[2018-08-17 06:03] LABS: Anisocytosis (M) Present; Polychromasia Present
== END 2018-08-17 05:25 | disposition home or self-care (01) ==
LOC: EC 03:32
DX: R00.2 Palpitations (principal); R07.9 Chest pain, unspecified; R06.02 Shortness of breath; F17.200 Nicotine dependence, unspecified, uncomplicated; Z91.011 Allergy to milk products
CPT/HCPCS: 36415; 71046; 80053; 83735; 84484; 85025; 85379; 85610; 85730; 93005; 96360; 99285

== ENCOUNTER 2018-11-17 07:54 | Emergency (ER) | payer OTHER ==
[2018-11-17 07:59] VITALS: BP 124/85; PULSE 97; RESP 18; TEMP 99
[2018-11-17] MEDS ORDERED: KETOROLAC 60 MG/2 ML VIAL IM STA (08:09)
[2018-11-17] MEDS ORDERED: CYCLOBENZAPRINE 10MG STARTER 3 TAB BTL PO STA (08:09)
--- NOTE | 2018-11-17 08:18 | ED ---
Back Pain HPI - General Chief Complaint: Back Pain/Injury Stated Complaint: BACK PAIN Time Seen by Provider: 11/17/18 08:02 Source: patient, RN notes reviewed, old records reviewed Limitations: no limitations - History of Present Illness Initial Comments: Patient is a 23-year-old female presents emergency department today complaining of mid upper and right-sided back pain. 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 Patient states that yesterday she started to have a back spasm. She is not taken any Motrin for pain as of this time. Patient denies any chest pain shortness breath nausea or vomiting. She denies any saddle anesthesias. Patient relates that she has had no fevers or chills, dysuria or hematuria or abdominal pain. Patient states that the pain is worse with movement. She reports that she has not taken any anti-inflammatories as of this time. She has a known history of chronic back pain. She denies any falls or trauma. - Related Data Home Medications Medication Instructions Recorded Confirmed Unknown Muscle Relaxer 1 tab PO ONCE PRN 11/17/18 11/17/18 Previous Rx's Medication Instructions Recorded Cyclobenzaprine [Flexeril] 10 mg PO TID #6 tab 11/17/18 Ibuprofen 600 mg PO TID #20 tablet 11/17/18 Allergies Allergy/AdvReac Type Severity Reaction Status Date / Time milk Allergy Nausea & Verified 11/17/18 08:05 Vomiting Review of Systems ROS Statement: Those systems with pertinent positive or pertinent negative responses have been documented in the HPI. ROS Other: All systems not noted in ROS Statement are negative. Past Medical History Past Medical History: No Reported History Additional Past Medical History / Comment(s): chronic back pain History of Any Multi-Drug Resistant Organisms: None Reported Past Surgical History: Adenoidectomy, Ear Surgery, Orthopedic Surgery, Tonsillectomy Additional Past Surgical History / Comment(s): right ankle, Past Psychological History: Anxiety, Depression Smoking Status: Current every day smoker Past Alcohol Use History: Occasional Past Drug Use History: None Reported General Exam - General Exam Comments Initial Comments: Alert and oriented 23-year-old female. No distress. Limitations: no limitations General appearance: alert, in no apparent distress Head exam: Present: atraumatic, normocephalic, normal inspection Eye exam: Present: normal appearance, PERRL, EOMI. Absent: scleral icterus, conjunctival injection, periorbital swelling ENT exam: Present: normal exam, mucous membranes moist Neck exam: Present: normal inspection. Absent: tenderness, meningismus, lymphadenopathy Respiratory exam: Present: normal lung sounds bilaterally. Absent: respiratory distress, wheezes, rales, rhonchi, stridor Cardiovascular Exam: Present: regular rate, normal rhythm, normal heart sounds. Absent: systolic murmur, diastolic murmur, rubs, gallop, clicks Extremities exam: Present: normal inspection, full ROM, normal capillary refill , other (2+ bilateral dorsalis pedis pulses. Full range of motion of lower and upper extremities. Normal sensation distally.). Absent: tenderness, pedal edema, joint swelling, calf tenderness Back exam: Present: normal inspection, tenderness (Patient has tenderness over the paraspinal muscles over the right thoracic spine.) Neurological exam: Present: alert, oriented X3, CN II-XII intact Psychiatric exam: Present: normal affect, normal mood Skin exam: Present: warm, dry, intact, normal color. Absent: rash Course Vital Signs 11/17/18 07:55 Temperature 99 F Pulse Rate 97 Respiratory 18 Rate Blood Pressure 124/85 O2 Sat by Pulse 100 Oximetry Medical Decision Making - Medical Decision Making 23-year-old female presents today complaining of thoracic back pain and spasms. reports pain is worse with movement of her right thoracic back and shoulders. Patient's has tenderness over his paraspinal muscles evidence of spasm. She has no falls or trauma. I discussed no need for imaging at this time with atraumatic injury. Patient agrees. She was offered IM Toradol and by mouth Flexeril. She was later reevaluated states that her pain is resolved. We'll discharge the Patient with inflammatory medications. I did discuss that she should alternate heat and ice her back. She also requests a work note. I discussed strict return parameters including saddle anesthesias or other complaints. Patient agrees to treatment plan will comply. Disposition Clinical Impression: Thoracic back pain, Muscle spasm of back Disposition: HOME SELF-CARE Condition: Good Instructions (If sedation given, give patient instructions): Muscle Spasm (ED) Additional Instructions: Recommended applying warm compresses over the area. Take anti-inflammatory medicine and use the starter pack of muscle relaxers as prescribed. Patient should also massage the area with spasms. Return to the emergency department if any alarming signs or symptoms occur. Prescriptions: Cyclobenzaprine [Flexeril] 10 mg PO TID #6 tab Ibuprofen 600 mg PO TID #20 tablet Is patient prescribed a controlled substance at d/c from ED?: No Referrals: Sarath Sykes DO [Primary Care Provider] - 1-2 days Time of Disposition: 08:15
== END 2018-11-17 08:36 | disposition home or self-care (01) ==
LOC: EC 07:54
DX: M54.6 Pain in thoracic spine (principal); M62.830 Muscle spasm of back; G89.29 Other chronic pain; F17.200 Nicotine dependence, unspecified, uncomplicated; Z91.011 Allergy to milk products
CPT/HCPCS: 96372; 99283

== ENCOUNTER 2019-04-14 10:48 | Emergency (ER) | payer OTHER ==
[2019-04-14 10:58] VITALS: RESP 16
--- NOTE | 2019-04-14 11:24 | ED ---
Abdominal Pain HPI - General Chief Complaint: Abdominal Pain Stated Complaint: abd pain/Nausea/poss preg Time Seen by Provider: 04/14/19 10:57 Source: patient Mode of arrival: ambulatory Limitations: no limitations - History of Present Illness Initial Comments: 23-year-old female presenting for multiple complaints. Patient states that she missed her period yesterday. She states she's had nausea for the past 2-3 weeks and she is concerned she is . Patient denies any vomiting. Patient states she has also had pain near the belly button for the past 24 hours. She states she's had a previous appendectomy she denies any radiation the pain she states that ranges from sharp to dull is constant and changes in intensity. Patient denies any back pain dysuria urgency frequency or hematuria. Patient states her last bowel movement was 3 days prior she states this is normal for her to go to 3 days without a bowel movement. Patient denies any diarrhea. Patient has a fever chills night sweats melena or hematochezia. Patient denies any lower pelvic cramping or pain. Patient denies any vaginal bleeding. Remaining review of systems negative upon arrival patient appears well there's no signs of acute distress. Patient is sitting comfortably - Related Data Home Medications Medication Instructions Recorded Confirmed No Known Home Medications 04/14/19 04/14/19 Allergies Allergy/AdvReac Type Severity Reaction Status Date / Time amoxicillin Allergy Unknown Verified 04/14/19 11:37 milk AdvReac Nausea & Verified 04/14/19 11:37 Vomiting Review of Systems ROS Statement: Those systems with pertinent positive or pertinent negative responses have been documented in the HPI. ROS Other: All systems not noted in ROS Statement are negative. Past Medical History Past Medical History: No Reported History Additional Past Medical History / Comment(s): chronic back pain History of Any Multi-Drug Resistant Organisms: None Reported Past Surgical History: Adenoidectomy, Ear Surgery, Orthopedic Surgery, Tonsillectomy Additional Past Surgical History / Comment(s): right ankle, Past Psychological History: Anxiety, Depression Smoking Status: Current every day smoker Past Alcohol Use History: Occasional Past Drug Use History: None Reported General Exam - General Exam Comments Initial Comments: General: The patient is awake and alert, in no distress, and does not appear acutely ill. Eye: Pupils are equal, round and reactive to light, extra-ocular movements are intact. No nystagmus. There is normal conjunctiva bilaterally. No signs of icterus. Ears, nose, mouth and throat: There are moist mucous membranes and no oral lesi ons. Neck: The neck is supple, there is no tenderness or JVD. Cardiovascular: There is a regular rate and rhythm. No murmur, rub or gallop is appreciated. Respiratory: Lungs are clear to auscultation, respirations are non-labored, breath sounds are equal. No wheezes, stridor, rales, or rhonchi. Gastrointestinal: Soft, non-distended, non-tender abdomen without masses or organomegaly noted. There is no rebound or guarding present. No CVA tenderness. Bowel sounds are unremarkable. Musculoskeletal: Normal ROM, no tenderness. Strength 5/5. Sensation intact. Pulses equal bilaterally 2+. Neurological: A&O x 3. CN II-XII intact, There are no obvious motor or sensory deficits. Coordination appears grossly intact. Speech is normal. Skin: Skin is warm and dry and no rashes or lesions are noted. Psychiatric: Cooperative, appropriate mood & affect, normal judgment. Limitations: no limitations Course Vital Signs 04/14/19 04/14/19 10:54 13:18 Temperature 97.8 F 98 F Pulse Rate 87 81 Respiratory 16 16 Rate Blood Pressure 132/96 107/78 O2 Sat by Pulse 99 99 Oximetry Medical Decision Making - Medical Decision Making Well-appearing 23-year-old female presenting from this. Abdominal pain. There is no abdominal exam appreciated on examination. Laboratory studies medical. HCG negative. No evidence of urinary tract infection. Patient states she has had some constipation however this is typical for her. There is no evidence of vomiting. Patient does not appear to have acute abdomen. This time do feel patient is stable for discharge with strict return parameters and follow-up with primary care provider. I recommended if she is concerned of procedure repeat hCG in one week. Patient is agreeable care plan discharge at this time. I discussed the case with him provider Dr. Swenson was agreeable care plan - Lab Data Result diagrams: 04/14/19 12:05 04/14/19 12:05 Lab Results 04/14/19 04/14/19 04/14/19 Range/Units 12:05 12:05 12:05 WBC 9.2 (3.8-10.6) k/uL RBC 4.26 (3.80-5.40) m/uL Hgb 11.5 (11.4-16.0) gm/dL Hct 35.5 (34.0-46.0) % MCV 83.3 (80.0-100.0) fL MCH 26.9 (25.0-35.0) pg MCHC 32.3 (31.0-37.0) g/dL RDW 14.3 (11.5-15.5) % Plt Count 358 (150-450) k/uL Neutrophils % 65 % Lymphocytes % 28 % Monocytes % 4 % Eosinophils % 2 % Basophils % 0 % Neutrophils # 6.0 (1.3-7.7) k/uL Lymphocytes # 2.6 (1.0-4.8) k/uL Monocytes # 0.3 (0-1.0) k/uL Eosinophils # 0.2 (0-0.7) k/uL Basophils # 0.0 (0-0.2) k/uL Sodium 139 (137-145) mmol/L Potassium 4.5 (3.5-5.1) mmol/L Chloride 104 (98-107) mmol/L Carbon Dioxide 28 (22-30) mmol/L Anion Gap 7 mmol/L BUN 12 (7-17) mg/dL Creatinine 0.70 (0.52-1.04) mg/dL Est GFR (CKD-EPI)AfAm >90 (>60 ml/min/1.73 sqM) Est GFR (CKD-EPI)NonAf >90 (>60 ml/min/1.73 sqM) Glucose 100 H (74-99) mg/dL Calcium 9.2 (8.4-10.2) mg/dL Lipase 73 (23-300) U/L Urine Color Urine Appearance (Clear) Urine pH (5.0-8.0) Ur Specific [place] (1.001-1.035) Urine Protein (Negative) Urine Glucose (UA) (Negative) Urine Ketones (Negative) Urine Blood (Negative) Urine Nitrite (Negative) Urine Bilirubin (Negative) Urine Urobilinogen (<2.0) mg/dL Ur Leukocyte Esterase (Negative) Urine HCG, Qual Not Detected (Not Detectd) 04/14/19 Range/Units 12:05 WBC (3.8-10.6) k/uL RBC (3.80-5.40) m/uL Hgb (11.4-16.0) gm/dL Hct (34.0-46.0) % MCV (80.0-100.0) fL MCH (25.0-35.0) pg MCHC (31.0-37.0) g/dL RDW (11.5-15.5) % Plt Count (150-450) k/uL Neutrophils % % Lymphocytes % % Monocytes % % Eosinophils % % Basophils % % Neutrophils # (1.3-7.7) k/uL Lymphocytes # (1.0-4.8) k/uL Monocytes # (0-1.0) k/uL Eosinophils # (0-0.7) k/uL Basophils # (0-0.2) k/uL Sodium (137-145) mmol/L Potassium (3.5-5.1) mmol/L Chloride (98-107) mmol/L Carbon Dioxide (22-30) mmol/L Anion Gap mmol/L BUN (7-17) mg/dL Creatinine (0.52-1.04) mg/dL Est GFR (CKD-EPI)AfAm (>60 ml/min/1.73 sqM) Est GFR (CKD-EPI)NonAf (>60 ml/min/1.73 sqM) Glucose (74-99) mg/dL Calcium (8.4-10.2) mg/dL Lipase (23-300) U/L Urine Color Colorless Urine Appearance Clear (Clear) Urine pH 7.0 (5.0-8.0) Ur Specific [place] 1.004 (1.001-1.035) Urine Protein Negative (Negative) Urine Glucose (UA) Negative (Negative) Urine Ketones Negative (Negative) Urine Blood Negative (Negative) Urine Nitrite Negative (Negative) Urine Bilirubin Negative (Negative) Urine Urobilinogen <2.0 (<2.0) mg/dL Ur Leukocyte Esterase Negative (Negative) Urine HCG, Qual (Not Detectd) Disposition Clinical Impression: Abdominal pain, Nausea Disposition: HOME SELF-CARE Condition: Good Instructions (If sedation given, give patient instructions): Abdominal Pain (ED) Additional Instructions: Please use medication as discussed. Please follow-up with family doctor in the next 2 days. Please return to emergency room if the symptoms increase or worsen or for any other concerns. Is patient prescribed a controlled substance at d/c from ED?: No Referrals: Sarath Sykes DO [Primary Care Provider] - 1-2 days Time of Disposition: 12:57
[2019-04-14 12:19] LABS: Basophils % (A) 0 %; Eosinophils # (A) 0.2 k/uL (0-0.7); Eosinophils % (A) 2 %; HCT 35.5 % (34.0-46.0); HGB 11.5 gm/dL (11.4-16.0); Lymphocytes # (A) 2.6 k/uL (1.0-4.8); Lymphocytes % (A) 28 %; MCH 26.9 pg (25.0-35.0); MCHC 32.3 g/dL (31.0-37.0); MCV 83.3 fL (80.0-100.0); Mean Platelet Volume 6.7; Monocytes # (A) 0.3 k/uL (0-1.0); Monocytes % (A) 4 %; Neutrophils % (A) 65 %; Platelet Count 358 k/uL (150-450); RBC 4.26 m/uL (3.80-5.40); RDW 14.3 % (11.5-15.5); WBC 9.2 k/uL (3.8-10.6)
[2019-04-14 12:25] LABS: Appearance,Urine Clear (Clear); Bilirubin,Urine Negative (Negative); Blood,Urine Negative (Negative); Color,Urine Colorless; Glucose,Urine (UA) Negative (Negative); Ketones,Urine Negative (Negative); Leukocyte Esterase,Urine Negative (Negative); Nitrite,Urine Negative (Negative); Protein,Urine Negative (Negative); Specific Gravity,Urine 1.004 (1.001-1.035); Urobilinogen,Urine <2.0 mg/dL (<2.0)
[2019-04-14 12:32] LABS: African American GFR (CKD) >90 (>60 ml/min/1.73 sqM); Anion Gap 7 mmol/L; Blood Urea Nitrogen 12 mg/dL (7-17); Calcium 9.2 mg/dL (8.4-10.2); Carbon Dioxide 28 mmol/L (22-30); Chloride 104 mmol/L (98-107); Glucose 100 mg/dL (74-99); Lipase 73 U/L (23-300); Potassium 4.5 mmol/L (3.5-5.1); Sodium 139 mmol/L (137-145)
[2019-04-14 13:19] VITALS: BP 107/78; PULSE 81; TEMP 98
== END 2019-04-14 13:19 | disposition home or self-care (01) ==
LOC: EC 10:48
DX: R10.9 Unspecified abdominal pain (principal); R11.0 Nausea; F17.200 Nicotine dependence, unspecified, uncomplicated; Z32.02 Encounter for pregnancy test, result negative; Z88.0 Allergy status to penicillin; Z91.011 Allergy to milk products
CPT/HCPCS: 36415; 80048; 81003; 81025; 83690; 85025; 99284

== ENCOUNTER 2019-05-24 12:18 | Emergency (ER) | payer BC, OTHER ==
[2019-05-24 12:33] VITALS: TEMP 99.2
[2019-05-24] MEDS ORDERED: ONDANSETRON ODT 8 MG TAB.RAPDIS PO STA (13:28)
--- NOTE | 2019-05-24 13:37 | ED ---
Female Urogenital HPI - General Chief complaint: OB/Uterine Contractions Stated complaint: Nausea, positive test Time Seen by Provider: 05/24/19 13:00 Source: patient Mode of arrival: ambulatory Limitations: no limitations - History of Present Illness Initial comments: Patient is a 23-year-old female presents emergency Department to confirm a . Patient states her last menstrual cycle was April 16 and she took 2 home test yesterday and they're both positive. Patient states she is also been nauseous for the past few days that is intermittent. Patient states this will be her first . Patient denies any fever, chills, vomiting, severe abdominal pain. Patient has no other complaints at this time. - Related Data Home Medications Medication Instructions Recorded Confirmed No Known Home Medications 04/14/19 05/24/19 Allergies Allergy/AdvReac Type Severity Reaction Status Date / Time amoxicillin AdvReac Nausea & Verified 05/24/19 14:10 Vomiting milk AdvReac Nausea & Verified 05/24/19 14:10 Vomiting Review of Systems ROS Statement: Those systems with pertinent positive or pertinent negative responses have been documented in the HPI. ROS Other: All systems not noted in ROS Statement are negative. Past Medical History Past Medical History: No Reported History Additional Past Medical History / Comment(s): chronic back pain History of Any Multi-Drug Resistant Organisms: None Reported Past Surgical History: Adenoidectomy, Ear Surgery, Orthopedic Surgery, Tonsillectomy Additional Past Surgical History / Comment(s): right ankle, Past Psychological History: Anxiety, Depression Smoking Status: Current every day smoker Past Alcohol Use History: Occasional Past Drug Use History: None Reported General Exam - General Exam Comments Initial Comments: GENERAL: Well-appearing, well-nourished and in no acute distress. HEAD: Atraumatic, normocephalic. EYES: Pupils equal round and reactive to light, extraocular movements intact, sclera anicteric, conjunctiva are normal. ENT: TMs normal, nares patent, oropharynx clear without exudates. Moist mucous membranes. NECK: Normal range of motion, supple without lymphadenopathy or JVD. LUNGS: Breath sounds clear to auscultation bilaterally and equal. No wheezes rales or rhonchi. HEART: Regular rate and rhythm without murmurs, rubs or gallops. ABDOMEN: Soft, nontender, normoactive bowel sounds. No guarding, no rebound. No masses appreciated. : Deferred, pt declined. EXTREMITIES: Normal range of motion, no pitting or edema. No clubbing or cyanosis. NEUROLOGICAL: Cranial nerves II through XII grossly intact. Normal speech, normal gait. PSYCH: Normal mood, normal affect. SKIN: Warm, Dry, normal turgor, no rashes or lesions noted. Limitations: no limitations Course Vital Signs 05/24/19 05/24/19 05/24/19 12:30 14:26 15:52 Temperature 99.2 F 99.2 F Pulse Rate 99 86 86 Respiratory 16 18 18 Rate Blood Pressure 132/79 111/78 111/78 O2 Sat by Pulse 99 100 100 Oximetry Medical Decision Making - Medical Decision Making Patient is a 23-year-old female here to confirm a . The patient states she took 2 home and see test and they're both positive. Patient's last mental cycle was April 16. This would be patient's first . Patient declined vaginal exam at this time. The rest of her exam is normal. UA revealed a positive hCG, and a moderate amount of blood, RBC. After sharing the results of the UA, the patient revealed she did have a small amount of spotting yesterday. None today. ABO/Rh was performed and she is AB+. HCG Quant is 3086. Patient will follow up with OB in 2 weeks. Return parameters were discussed with the patient and she verbalized understanding. She is stable for discharge and she is requesting to go home. Case discussed with Dr. Lafleur. - Lab Data Result diagrams: 05/24/19 14:25 05/24/19 14:25 Lab Results 05/24/19 05/24/19 05/24/19 Range/Units 13:30 13:30 14:25 WBC (3.8-10.6) k/uL RBC (3.80-5.40) m/uL Hgb (11.4-16.0) gm/dL Hct (34.0-46.0) % MCV (80.0-100.0) fL MCH (25.0-35.0) pg MCHC (31.0-37.0) g/dL RDW (11.5-15.5) % Plt Count (150-450) k/uL Neutrophils % % Lymphocytes % % Monocytes % % Eosinophils % % Basophils % % Neutrophils # (1.3-7.7) k/uL Lymphocytes # (1.0-4.8) k/uL Monocytes # (0-1.0) k/uL Eosinophils # (0-0.7) k/uL Basophils # (0-0.2) k/uL Sodium (137-145) mmol/L Potassium (3.5-5.1) mmol/L Chloride (98-107) mmol/L Carbon Dioxide (22-30) mmol/L Anion Gap mmol/L BUN (7-17) mg/dL Creatinine (0.52-1.04) mg/dL Est GFR (CKD-EPI)AfAm (>60 ml/min/1.73 sqM) Est GFR (CKD-EPI)NonAf (>60 ml/min/1.73 sqM) Glucose (74-99) mg/dL Calcium (8.4-10.2) mg/dL HCG, Quant mIU/mL Urine Color Colorless Urine Appearance Cloudy H (Clear) Urine pH 6.5 (5.0-8.0) Ur Specific [place] 1.003 (1.001-1.035) Urine Protein Negative (Negative) Urine Glucose (UA) Negative (Negative) Urine Ketones Negative (Negative) Urine Blood Moderate H (Negative) Urine Nitrite Negative (Negative) Urine Bilirubin Negative (Negative) Urine Urobilinogen <2.0 (<2.0) mg/dL Ur Leukocyte Esterase Small H (Negative) Urine RBC 4 (0-5) /hpf Urine WBC 3 (0-5) /hpf Ur Squamous Epith Cells 3 (0-4) /hpf Amorphous Sediment Few H (None) /hpf Urine Bacteria Rare H (None) /hpf Urine Mucus Rare H (None) /hpf Urine HCG, Qual Detected (Not Detectd) Blood Type A Positive Blood Type Recheck [facility] ONLY 05/24/19 05/24/19 Range/Units 14:25 14:25 WBC 10.1 (3.8-10.6) k/uL RBC 4.17 (3.80-5.40) m/uL Hgb 11.2 L (11.4-16.0) gm/dL Hct 35.3 (34.0-46.0) % MCV 84.5 (80.0-100.0) fL MCH 26.7 (25.0-35.0) pg MCHC 31.6 (31.0-37.0) g/dL RDW 14.9 (11.5-15.5) % Plt Count 348 (150-450) k/uL Neutrophils % 63 % Lymphocytes % 30 % Monocytes % 4 % Eosinophils % 1 % Basophils % 0 % Neutrophils # 6.3 (1.3-7.7) k/uL Lymphocytes # 3.0 (1.0-4.8) k/uL Monocytes # 0.4 (0-1.0) k/uL Eosinophils # 0.1 (0-0.7) k/uL Basophils # 0.0 (0-0.2) k/uL Sodium 134 L (137-145) mmol/L Potassium 4.1 (3.5-5.1) mmol/L Chloride 104 (98-107) mmol/L Carbon Dioxide 24 (22-30) mmol/L Anion Gap 6 mmol/L BUN 9 (7-17) mg/dL Creatinine 0.59 (0.52-1.04) mg/dL Est GFR (CKD-EPI)AfAm >90 (>60 ml/min/1.73 sqM) Est GFR (CKD-EPI)NonAf >90 (>60 ml/min/1.73 sqM) Glucose 97 (74-99) mg/dL Calcium 8.9 (8.4-10.2) mg/dL HCG, Quant 3086.2 mIU/mL Urine Color Urine Appearance (Clear) Urine pH (5.0-8.0) Ur Specific [place] (1.001-1.035) Urine Protein (Negative) Urine Glucose (UA) (Negative) Urine Ketones (Negative) Urine Blood (Negative) Urine Nitrite (Negative) Urine Bilirubin (Negative) Urine Urobilinogen (<2.0) mg/dL Ur Leukocyte Esterase (Negative) Urine RBC (0-5) /hpf Urine WBC (0-5) /hpf Ur Squamous Epith Cells (0-4) /hpf Amorphous Sediment (None) /hpf Urine Bacteria (None) /hpf Urine Mucus (None) /hpf Urine HCG, Qual (Not Detectd) Blood Type Blood Type Recheck Disposition Clinical Impression: , Vaginal spotting Disposition: HOME SELF-CARE Condition: Stable Additional Instructions: Please return to the Emergency Department if symptoms worsen or any other concerns. Follow-up with OB as discussed. Is patient prescribed a controlled substance at d/c from ED?: No Referrals: Sarath Sykes DO [Primary Care Provider] - 1-2 days
[2019-05-24 14:02] LABS: Amorphous Sediment,Urine Few /hpf; Appearance,Urine Cloudy (Clear); Bacteria,Urine Rare /hpf; Bilirubin,Urine Negative (Negative); Blood,Urine Moderate (Negative); Color,Urine Colorless; Glucose,Urine (UA) Negative (Negative); Ketones,Urine Negative (Negative); Leukocyte Esterase,Urine Small (Negative); Mucus,Urine Rare /hpf; Nitrite,Urine Negative (Negative); PH, Urine 6.5 (5.0-8.0); Protein,Urine Negative (Negative); RBC,Urine 4 /hpf (0-5); Specific Gravity,Urine 1.003 (1.001-1.035); Squamous Epithelial Cell,Urine 3 /hpf (0-4); Urobilinogen,Urine <2.0 mg/dL (<2.0)
[2019-05-24 14:27] VITALS: BP 111/78; PULSE 86; RESP 18
[2019-05-24 14:50] LABS: Basophils % (A) 0 %; Eosinophils # (A) 0.1 k/uL (0-0.7); Eosinophils % (A) 1 %; HCT 35.3 % (34.0-46.0); HGB 11.2 gm/dL (11.4-16.0); Lymphocytes % (A) 30 %; MCH 26.7 pg (25.0-35.0); MCHC 31.6 g/dL (31.0-37.0); MCV 84.5 fL (80.0-100.0); Mean Platelet Volume 6.8; Monocytes # (A) 0.4 k/uL (0-1.0); Monocytes % (A) 4 %; Neutrophils # (A) 6.3 k/uL (1.3-7.7); Neutrophils % (A) 63 %; Platelet Count 348 k/uL (150-450); RBC 4.17 m/uL (3.80-5.40); RDW 14.9 % (11.5-15.5); WBC 10.1 k/uL (3.8-10.6)
[2019-05-24 15:12] LABS: African American GFR (CKD) >90 (>60 ml/min/1.73 sqM); Anion Gap 6 mmol/L; Blood Urea Nitrogen 9 mg/dL (7-17); Calcium 8.9 mg/dL (8.4-10.2); Carbon Dioxide 24 mmol/L (22-30); Chloride 104 mmol/L (98-107); Glucose 97 mg/dL (74-99); Potassium 4.1 mmol/L (3.5-5.1); Sodium 134 mmol/L (137-145)
[2019-05-24 15:29] LABS: HCG,Quantitative Serum 3086.2 mIU/mL
== END 2019-05-24 15:56 | disposition home or self-care (01) ==
LOC: EC 12:18
DX: O26.859 Spotting complicating pregnancy, unspecified trimester (principal); O99.89 Other specified diseases and conditions complicating pregnancy, childbirth and the puerperium; R11.0 Nausea; O99.330 Smoking (tobacco) complicating pregnancy, unspecified trimester; F17.200 Nicotine dependence, unspecified, uncomplicated; Z53.29 Procedure and treatment not carried out because of patient's decision for other reasons; Z3A.00 Weeks of gestation of pregnancy not specified; Z88.0 Allergy status to penicillin; Z91.011 Allergy to milk products
CPT/HCPCS: 36415; 80048; 81001; 81025; 84702; 85025; 86900; 86901; 99283

== ENCOUNTER 2019-05-26 21:33 | Emergency (ER) | payer BC, OTHER ==
[2019-05-26 21:40] VITALS: RESP 18; TEMP 98.8
[2019-05-26] MEDS ORDERED: SODIUM CHLORIDE 0.9% 500 ML 500 ML IV ONE (21:58)
[2019-05-26 22:35] LABS: Basophils % (A) 0 %; Eosinophils # (A) 0.1 k/uL (0-0.7); Eosinophils % (A) 1 %; HCT 34.3 % (34.0-46.0); HGB 10.6 gm/dL (11.4-16.0); Lymphocytes # (A) 3.7 k/uL (1.0-4.8); Lymphocytes % (A) 33 %; MCH 26.2 pg (25.0-35.0); MCHC 30.9 g/dL (31.0-37.0); MCV 84.7 fL (80.0-100.0); Mean Platelet Volume 6.7; Monocytes # (A) 0.4 k/uL (0-1.0); Monocytes % (A) 4 %; Neutrophils # (A) 6.8 k/uL (1.3-7.7); Neutrophils % (A) 60 %; Platelet Count 355 k/uL (150-450); RBC 4.05 m/uL (3.80-5.40); RDW 14.9 % (11.5-15.5); WBC 11.4 k/uL (3.8-10.6)
[2019-05-26 22:39] LABS: Appearance,Urine Cloudy (Clear); Bilirubin,Urine Negative (Negative); Blood,Urine Large (Negative); Color,Urine Yellow; Glucose,Urine (UA) Negative (Negative); Ketones,Urine Negative (Negative); Leukocyte Esterase,Urine Moderate (Negative); Mucus,Urine Rare /hpf; Nitrite,Urine Negative (Negative); PH, Urine 7.5 (5.0-8.0); Protein,Urine Trace (Negative); RBC,Urine 5 /hpf (0-5); Specific Gravity,Urine 1.023 (1.001-1.035); Squamous Epithelial Cell,Urine 11 /hpf (0-4); WBC,Urine 12 /hpf (0-5)
[2019-05-26 22:49] LABS: African American GFR (CKD) >90 (>60 ml/min/1.73 sqM); Anion Gap 9 mmol/L; Blood Urea Nitrogen 12 mg/dL (7-17); Calcium 9.2 mg/dL (8.4-10.2); Carbon Dioxide 27 mmol/L (22-30); Chloride 102 mmol/L (98-107); Glucose 96 mg/dL (74-99); Non-African American GFR(CKD) 88 (>60 ml/min/1.73 sqM); Potassium 4.1 mmol/L (3.5-5.1); Sodium 138 mmol/L (137-145)
[2019-05-26 23:05] LABS: HCG,Quantitative Serum 6389.7 mIU/mL
--- NOTE | 2019-05-27 00:18 | US ---
EXAMINATION TYPE: US OB Transvaginal/Transabdominal DATE OF EXAM: 05/27/2019 12:02 AM COMPARISON: NONE CLINICAL HISTORY: pain. Pelvic pain x 3 hours. EXAM PERFORMED: Transvaginal (TV) and Transabdominal (TA) EXAM MEASUREMENTS: GESTATIONAL AGE / DATING Physician Established: Not yet established Dates by LMP: (5 weeks/5 days) EDC: 01/21/2020 Dates by First Scan: This is first scan Dates by Current Scan for: GS out of range MATERNAL ANATOMY Uterus: 9.6 x 6.1 x 5.3 cm Right Ovary: not seen Left Ovary: 3.0 x 2.5 x 2.4 cm. Post CDS / Adnexa: within normal limits Presence of free fluid: none seen Presence of corpus luteal cyst: none seen Presence of subchorionic bleed: not seen GESTATION / SURVEY MSD: 0.81 cm. Out of range. Yolk Sac (normal less than 6mm): 1.9 mm IUP: Only gestational sac and yolk sac seen at this time Date of LMP: 04/16/2019 Beta HcG (if available): 6,389.7 IMPRESSION: Early gestation sac and yolk sac within the endometrium. No pole, likely secondary to early gestation.
--- NOTE | 2019-05-27 00:32 | ED ---
General Adult HPI - General Chief complaint: Abdominal Pain Stated complaint: abdominal cramping Time Seen by Provider: 05/26/19 21:42 Source: patient Mode of arrival: ambulatory Limitations: no limitations - History of Present Illness Initial comments: 23-year-old female presenting for abdominal cramping. She states she believes her Ailyn was too tight at work. She was concerned that is affecting the baby. Patient states she was here 2 days prior. She states she did not receive an ultrasound. Patient states she does have some low back pain. Patient denies vaginal bleeding vaginal discharge. She denies any severe abdominal pain. She denies nausea vomiting headache dizziness chest pain shortness of breath. Patient states she feels her feet looks like swollen but she is not sure. Remaining ROS (-). upon arrival patient appears well, no distress. - Related Data Home Medications Medication Instructions Recorded Confirmed No Known Home Medications 04/14/19 05/24/19 Allergies Allergy/AdvReac Type Severity Reaction Status Date / Time amoxicillin AdvReac Nausea & Verified 05/26/19 21:39 Vomiting milk AdvReac Nausea & Verified 05/26/19 21:39 Vomiting Review of Systems ROS Statement: Those systems with pertinent positive or pertinent negative responses have been documented in the HPI. ROS Other: All systems not noted in ROS Statement are negative. Past Medical History Past Medical History: No Reported History Additional Past Medical History / Comment(s): chronic back pain History of Any Multi-Drug Resistant Organisms: None Reported Past Surgical History: Adenoidectomy, Ear Surgery, Orthopedic Surgery, Tonsillectomy Additional Past Surgical History / Comment(s): right ankle, Past Psychological History: Anxiety, Depression Smoking Status: Current every day smoker Past Alcohol Use History: Occasional Past Drug Use History: None Reported General Exam - General Exam Comments Initial Comments: General: The patient is awake and alert, in no distress, and does not appear acutely ill. Eye: +3 mm pupils are equal, round and reactive to light, extra-ocular movements are intact. No nystagmus. There is normal conjunctiva bilaterally. No signs of icterus. Ears, nose, mouth and throat: There are moist mucous membranes and no oral lesions. Neck: The neck is supple, there is no tenderness or JVD. Cardiovascular: There is a regular rate and rhythm. No murmur, rub or gallop is appreciated. Respiratory: Lungs are clear to auscultation, respirations are non-labored, breath sounds are equal. No wheezes, stridor, rales, or rhonchi. Gastrointestinal: Soft, non-distended, non-tender abdomen without masses or organomegaly noted. There is no rebound or guarding present. No CVA tenderness. Bowel sounds are unremarkable. Pelvic; scant amount of blood on cervix, hard to tell if its from lesions or from os, os closed. No vaginal discharge. No adnexal or cervical motion tenderness. No external lesions. Musculoskeletal: No midline back pain. Paravertebral lumbar pain. Normal ROM, no tenderness. Strength 5/5. Sensation intact. Radial and DP pulses equal bilaterally 2+. Neurological: A&O x 3. CN II-XII intact, There are no obvious motor or sensory deficits. Coordination appears grossly intact. Speech is normal. Skin: Skin is warm and dry and no rashes or lesions are noted. no LE edema Psychiatric: Cooperative, appropriate mood & affect, normal judgment. Limitations: no limitations Course Vital Signs 05/26/19 21:35 Temperature 98.8 F Pulse Rate 104 H Respiratory 18 Rate Blood Pressure 141/87 O2 Sat by Pulse 100 Oximetry Medical Decision Making - Medical Decision Making 23yo female presenting for abdominal pain felt Bruce was too tight. Patient complaints of low back pain but states this is chronic. No midline tenderness. No neurological deficits denies loss of bowel bladder control or urinary retention. Denies any trauma to the back or fevers. Patient denies dysuria urgency frequency or vaginal discharge. Denies vaginal bleeding there was a small amount of blood noted on the cervix. There are small lesions not sure if this is related a posterior blood coming from the os. Otherwise patient has no adnexal or cervical motion tenderness ultrasound revealed a intrauterine gestational sac no yolk at this time. Patient's hCGconsistent with . With area of blood source not clear, I feel that patient differential diagnosis includes viable intrauterine proceed versus threatened miscarriage. Patient AB+. Patient findings were discussed with attending provider Tim. At this time we feel patient stable for d/c. Patient has scheduled OBGYN appointment with Dr. Orellana.S TI testing pending. Pt does not have concern refuses prophylactic treatmetn. Urine will be cultured. - Lab Data Result diagrams: 05/26/19 22:20 05/26/19 22:20 Lab Results 05/26/19 05/26/19 05/26/19 Range/Units 22:20 22:20 22:20 WBC 11.4 H (3.8-10.6) k/uL RBC 4.05 (3.80-5.40) m/uL Hgb 10.6 L (11.4-16.0) gm/dL Hct 34.3 (34.0-46.0) % MCV 84.7 (80.0-100.0) fL MCH 26.2 (25.0-35.0) pg MCHC 30.9 L (31.0-37.0) g/dL RDW 14.9 (11.5-15.5) % Plt Count 355 (150-450) k/uL Neutrophils % 60 % Lymphocytes % 33 % Monocytes % 4 % Eosinophils % 1 % Basophils % 0 % Neutrophils # 6.8 (1.3-7.7) k/uL Lymphocytes # 3.7 (1.0-4.8) k/uL Monocytes # 0.4 (0-1.0) k/uL Eosinophils # 0.1 (0-0.7) k/uL Basophils # 0.0 (0-0.2) k/uL Sodium 138 (137-145) mmol/L Potassium 4.1 (3.5-5.1) mmol/L Chloride 102 (98-107) mmol/L Carbon Dioxide 27 (22-30) mmol/L Anion Gap 9 mmol/L BUN 12 (7-17) mg/dL Creatinine 0.92 (0.52-1.04) mg/dL Est GFR (CKD-EPI)AfAm >90 (>60 ml/min/1.73 sqM) Est GFR (CKD-EPI)NonAf 88 (>60 ml/min/1.73 sqM) Glucose 96 (74-99) mg/dL Calcium 9.2 (8.4-10.2) mg/dL HCG, Quant 6389.7 mIU/mL Urine Color Yellow Urine Appearance Cloudy H (Clear) Urine pH 7.5 (5.0-8.0) Ur Specific [place] 1.023 (1.001-1.035) Urine Protein Trace H (Negative) Urine Glucose (UA) Negative (Negative) Urine Ketones Negative (Negative) Urine Blood Large H (Negative) Urine Nitrite Negative (Negative) Urine Bilirubin Negative (Negative) Urine Urobilinogen 2.0 (<2.0) mg/dL Ur Leukocyte Esterase Moderate H (Negative) Urine RBC 5 (0-5) /hpf Urine WBC 12 H (0-5) /hpf Ur Squamous Epith Cells 11 H (0-4) /hpf Urine Mucus Rare H (None) /hpf Disposition Clinical Impression: Abdominal cramping, , Vaginal bleeding, Threatened miscarriage Disposition: HOME SELF-CARE Condition: Good Instructions (If sedation given, give patient instructions): Threatened Miscarriage (ED) Additional Instructions: Please use medication as discussed. Please follow-up with family doctor in the next 2 days of symptoms have not improved. Please return to emergency room if the symptoms increase or worsen or for any other concerns. Is patient prescribed a controlled substance at d/c from ED?: No Referrals: Sarath Sykes DO [Primary Care Provider] - 1-2 days Patty Stone MD [STAFF PHYSICIAN] - 1-2 days Time of Disposition: 00:31
[2019-05-27 01:06] VITALS: BP 130/84; PULSE 100
[2019-05-29 14:59] LABS: C. trachomatis,PCR Negative (Neg,Equiv); Chlamydia trachomatis Source Vagina
[2019-05-29 15:14] LABS: N. gonorrhoeae,PCR Negative (Neg,Equiv); Neisseria Source Vagina
== END 2019-05-27 01:06 | disposition home or self-care (01) ==
LOC: EC 21:33
DX: O20.0 Threatened abortion (principal); Z67.30 Type AB blood, Rh positive; O99.331 Smoking (tobacco) complicating pregnancy, first trimester; F17.200 Nicotine dependence, unspecified, uncomplicated; Z88.0 Allergy status to penicillin; Z91.011 Allergy to milk products; Z53.20 Procedure and treatment not carried out because of patient's decision for unspecified reasons; Z3A.01 Less than 8 weeks gestation of pregnancy
CPT/HCPCS: 36415; 76801; 76817; 80048; 81001; 84702; 85025; 87086; 87491; 87591; 87808; 99284

== ENCOUNTER 2019-09-22 01:46 | Outpatient (CLI) | payer BC, OTHER ==
[2019-09-22 02:43] VITALS: BP 122/76; PULSE 85; RESP 18; TEMP 98.6
--- NOTE | 2019-10-28 07:50 | P.MSEPDOC ---
Presenting Problems - Arrival Data Date of Arrival on Unit: 09/22/19 Time of Arrival on Unit: 02:30 Mode of Transport: Ambulatory - Complaint OB-Reason for Admission/Chief Complaint: Pain Medical History - Information : 1 Para: 0 Term: 0 : 0 Abortions: Spontaneous or Elective: 0 Number of Living Children: 0 - Gestational Age Gestational Age by FRANK (wks/days): 22 Weeks and 5 Days Review of Systems - Review of Systems Constitutional: No problems Breast: No problems ENT: No problems Cardiovascular: No problems Respiratory: No problems Gastrointestinal: No problems Genitourinary: No problems Musculoskeletal: No problems Neurological: No problems Skin: No problems Vital Signs - Temperature Temperature: 98.6 F Temperature Source: Oral - Pulse Right Pulse Oximetery Pulse Rate: 85 Pulse Assessment Method: Auscultation - Respirations Respiratory Rate: 18 Oxygen Delivery Method: Room Air O2 Sat by Pulse Oximetry: 96 - Blood Pressure Right Arm Blood Pressure: 122/76 Blood Pressure Mean: 91 Blood Pressure Source: Automatic Cuff Medical Screen Scoring (Pre) - Cervical Exam Dilation: 0 cm = 0 Effacement: Exam Deferred Membranes: Intact - Uterine Contractions Frequency: N/A Duration: N/A Intensity: N/A - Maternal Vital Signs Maternal Temperature: N/A Maternal Blood Pressure: N/A Signs of Preeclampsia: N/A Maternal Respirations: N/A - Maternal Trauma Maternal Trauma: N/A - Assessment - Baby A Baseline FHR: 140 Heart Rate - NICHD Category: Category I (Normal) = 0 Position: N/A Station: N/A - Total Score - Baby A Total Score - Baby A: 0 - Total Score - Baby B Total Score - Baby B: 0 - Total Score - Baby C Total Score - Baby C: 0 - Level of Risk - Baby A Level of Risk - Baby A: Low (0-5) - Level of Risk - Baby B Level of Risk - Baby B: Low (0-5) - Level of Risk - Baby C Level of Risk - Baby C: Low (0-5) Physician Notification (Pre) - Physician Notified Physician Notified Date: 09/22/19 Physician Notified Time: 02:15 New Order Received: Yes - Notification Comment Comment: Dr Brunson notified of patient complaints of pain, pt working all day on feet at [employer], and only drinking 1-2 bottles of water all day, urine lauren colored, FHR 130-140, no contractions noted. order to check patients cervix, if closed, discharge home with instructions to rest, increase fluids, no intercourse, follow up with Dr Stoen within the week, and may use heating pad, hot bath/shower, and take tylenol for the pain. Disposition - Disposition OB Disposition: Physician follow up in office, Discharge to home Discharge Date: 09/22/19 Discharge Time: 02:30 I agree with the RN Medical Screening Exam: Yes Risk & Benefit of care provided described in d/c instruction: Yes Diagnosis: DEHYDRATION
== END 2019-09-22 02:30 | disposition home or self-care (01) ==
LOC: FBPOP 01:46
PROVIDERS: ATTEND Obstetrics & Gynecology
DX: O99.212 Obesity complicating pregnancy, second trimester (principal); E86.0 Dehydration; Z3A.22 22 weeks gestation of pregnancy
CPT/HCPCS: 99213

== ENCOUNTER 2019-12-08 11:52 | Outpatient (CLI) | payer BC, OTHER ==
[2019-12-08 13:07] LABS: Appearance,Urine Clear (Clear); Bilirubin,Urine Negative (Negative); Blood,Urine Negative (Negative); Color,Urine Yellow; Glucose,Urine (UA) 4+ (Negative); Ketones,Urine Negative (Negative); Leukocyte Esterase,Urine Negative (Negative); Nitrite,Urine Negative (Negative); PH, Urine 6.5 (5.0-8.0); Protein,Urine Negative (Negative); Specific Gravity,Urine 1.018 (1.001-1.035); Urobilinogen,Urine <2.0 mg/dL (<2.0)
[2019-12-08 13:26] VITALS: BP 131/75; PULSE 96; RESP 16; TEMP 98.1
--- NOTE | 2020-01-18 11:19 | P.MSEPDOC ---
Presenting Problems - Arrival Data Date of Arrival on Unit: 12/08/19 Time of Arrival on Unit: 11:52 Mode of Transport: Ambulatory - Complaint OB-Reason for Admission/Chief Complaint: Other Comment: pelvic presssure Medical History - Information : 1 Para: 0 - Gestational Age Gestational Age by FRANK (wks/days): 33 Weeks and 5 Days Review of Systems - Review of Systems Constitutional: No problems Breast: No problems ENT: No problems Cardiovascular: No problems Respiratory: No problems Gastrointestinal: No problems Genitourinary: No problems Musculoskeletal: No problems Neurological: No problems Skin: No problems Vital Signs - Temperature Temperature: 98.1 F Temperature Source: Temporal Artery Scan - Pulse Right Sitting Pulse Rate: 96 Pulse Assessment Method: Automatic Cuff - Respirations Respiratory Rate: 16 Oxygen Delivery Method: Room Air - Blood Pressure Right Arm Blood Pressure: 131/75 Blood Pressure Mean: 93 Blood Pressure Source: Automatic Cuff Medical Screen Scoring (Pre) - Cervical Exam Dilation: 0 cm = 0 Membranes: Intact - Uterine Contractions Frequency: N/A Duration: N/A Intensity: N/A - Maternal Vital Signs Maternal Temperature: N/A Maternal Blood Pressure: N/A Signs of Preeclampsia: N/A Maternal Respirations: N/A - Assessment - Baby A Baseline FHR: 145 Heart Rate - NICHD Category: Category I (Normal) = 0 NST: Reactive Position: N/A Station: N/A - Total Score - Baby A Total Score - Baby A: 0 - Total Score - Baby B Total Score - Baby B: 0 - Total Score - Baby C Total Score - Baby C: 0 - Level of Risk - Baby A Level of Risk - Baby A: Low (0-5) - Level of Risk - Baby B Level of Risk - Baby B: Low (0-5) - Level of Risk - Baby C Level of Risk - Baby C: Low (0-5) Physician Notification (Pre) - Physician Notified Physician Notified Date: 12/08/19 Physician Notified Time: 13:14 New Order Received: Yes (D/c home) Disposition - Disposition OB Disposition: Written follow up instructions reviewed Discharge Date: 12/08/19 Discharge Time: 13:18 I agree with the RN Medical Screening Exam: Yes Risk & Benefit of care provided described in d/c instruction: Yes Diagnosis: FALSE LABOR BEFORE 37 COMPLETED WEEKS OF GEST, SECOND TRI
== END 2019-12-08 13:18 | disposition home or self-care (01) ==
LOC: FBPOP 11:52
PROVIDERS: ATTEND Obstetrics & Gynecology
DX: O47.02 False labor before 37 completed weeks of gestation, second trimester (principal); Z3A.33 33 weeks gestation of pregnancy
CPT/HCPCS: 59025; 81003; 99213

== ENCOUNTER 2019-12-19 19:50 | Outpatient (CLI) | payer BC, OTHER ==
[2019-12-19 21:43] VITALS: BP 136/78; PULSE 104; RESP 16; TEMP 97.7
--- NOTE | 2019-12-25 11:13 | P.MSEPDOC ---
Presenting Problems - Arrival Data Date of Arrival on Unit: 12/19/19 Time of Arrival on Unit: 19:50 Mode of Transport: Ambulatory - Complaint OB-Reason for Admission/Chief Complaint: Rule Out SROM Comment: Pt complains of feeling "wet" around 1845. Medical History - Information : 1 Para: 0 Term: 0 : 0 Abortions: Spontaneous or Elective: 0 Number of Living Children: 0 - Gestational Age Gestational Age by FRANK (wks/days): 35 Weeks and 2 Days Review of Systems - Review of Systems Constitutional: No problems Breast: No problems ENT: No problems Cardiovascular: No problems Respiratory: No problems Gastrointestinal: No problems Genitourinary: No problems Musculoskeletal: No problems Neurological: No problems Skin: No problems Vital Signs - Temperature Temperature: 97.7 F Temperature Source: Temporal Artery Scan - Pulse Pulse Oximetery Pulse Rate: 104 Pulse Assessment Method: Pulse Oximetry - Respirations Respiratory Rate: 16 Oxygen Delivery Method: Room Air O2 Sat by Pulse Oximetry: 96 - Blood Pressure Right Arm Blood Pressure: 136/78 Blood Pressure Mean: 97 Blood Pressure Source: Automatic Cuff Medical Screen Scoring (Pre) - Cervical Exam Dilation: 0 cm = 0 Effacement: Exam Deferred Membranes: Intact - Uterine Contractions Frequency: > 5 minutes apart = 1 Duration: N/A Intensity: N/A - Maternal Vital Signs Maternal Temperature: N/A Maternal Blood Pressure: N/A Signs of Preeclampsia: N/A Maternal Respirations: N/A - Maternal Trauma Maternal Trauma: N/A - Assessment - Baby A Baseline FHR: 130 Heart Rate - NICHD Category: Category I (Normal) = 0 NST: Reactive Position: N/A Station: N/A - Total Score - Baby A Total Score - Baby A: 1 - Total Score - Baby B Total Score - Baby B: 1 - Total Score - Baby C Total Score - Baby C: 1 - Level of Risk - Baby A Level of Risk - Baby A: Low (0-5) - Level of Risk - Baby B Level of Risk - Baby B: Low (0-5) - Level of Risk - Baby C Level of Risk - Baby C: Low (0-5) Physician Notification (Pre) - Physician Notified Physician Notified Date: 12/19/19 Physician Notified Time: 20:26 New Order Received: Yes - Notification Comment Comment: Dr. Nowak on unit. Report given on maternal and status, pt complains. of feeling "wet" since 1845 but denies continues wetness. Amnisure negative, cervix. closed. Pt has no other complaints and NST is reactive. Orders to discharge pt home. Disposition - Disposition OB Disposition: Discharge to home Discharge Date: 12/19/19 Discharge Time: 20:30 I agree with the RN Medical Screening Exam: Yes Risk & Benefit of care provided described in d/c instruction: Yes Diagnosis: RELATED CONDITIONS, UNSPECIFIED, THIRD TRIMESTER
== END 2019-12-19 20:30 | disposition home or self-care (01) ==
LOC: FBPOP 19:50
PROVIDERS: ATTEND Obstetrics & Gynecology
DX: O26.93 Pregnancy related conditions, unspecified, third trimester (principal); Z3A.35 35 weeks gestation of pregnancy
CPT/HCPCS: 59025; 84112; 99213

== ENCOUNTER 2019-12-26 | Outpatient (CLI) | payer BC, OTHER | END 2019-12-26 14:44 | disposition home or self-care (01) | CPT/HCPCS: 59025; 99213 ==

== ENCOUNTER 2019-12-28 20:35 | Outpatient (CLI) | payer BC, OTHER ==
[2019-12-28 21:00] VITALS: BP 130/81; PULSE 105; RESP 16; TEMP 98.3
--- NOTE | 2020-01-15 11:28 | P.MSEPDOC ---
Presenting Problems - Arrival Data Date of Arrival on Unit: 12/28/19 Time of Arrival on Unit: 20:35 Mode of Transport: Wheelchair - Complaint OB-Reason for Admission/Chief Complaint: Possible Onset of Labor Comment: Patient states she felt like her back was bryce at 13:30. Pain is. currently relieved. And patient is stating that she is feeling pressure in her groin. area. Patient had an appointment yesterday and was 1cm and 30% effaced. Patient. currently pain free. Medical History - Information : 1 Para: 0 Term: 0 : 0 Abortions: Spontaneous or Elective: 0 Number of Living Children: 0 - Gestational Age Gestational Age by FRANK (wks/days): 36 Weeks and 4 Days Review of Systems - Review of Systems Constitutional: No problems Breast: No problems ENT: No problems Cardiovascular: No problems Respiratory: No problems Gastrointestinal: No problems Genitourinary: No problems Musculoskeletal: No problems Neurological: No problems Skin: No problems Vital Signs - Temperature Temperature: 98.3 F Temperature Source: Temporal Artery Scan - Pulse Right Brachial Pulse Rate: 105 Pulse Assessment Method: Automatic Cuff - Respirations Respiratory Rate: 16 Oxygen Delivery Method: Room Air O2 Sat by Pulse Oximetry: 97 - Blood Pressure Right Arm Blood Pressure: 130/81 Blood Pressure Mean: 97 Blood Pressure Source: Automatic Cuff Medical Screen Scoring (Pre) - Cervical Exam Dilation: 1-3 cm = 1 Membranes: Intact - Uterine Contractions Frequency: > 5 minutes apart = 1 Duration: N/A Intensity: N/A - Maternal Vital Signs Maternal Temperature: N/A Maternal Blood Pressure: N/A Signs of Preeclampsia: N/A Maternal Respirations: N/A - Maternal Trauma Maternal Trauma: N/A - Assessment - Baby A Baseline FHR: 130 Heart Rate - NICHD Category: Category I (Normal) = 0 NST: Reactive - Total Score - Baby A Total Score - Baby A: 2 - Total Score - Baby B Total Score - Baby B: 2 - Total Score - Baby C Total Score - Baby C: 2 - Level of Risk - Baby A Level of Risk - Baby A: Low (0-5) - Level of Risk - Baby B Level of Risk - Baby B: Low (0-5) - Level of Risk - Baby C Level of Risk - Baby C: Low (0-5) Physician Notification (Pre) - Physician Notified Physician Notified Date: 12/28/19 Physician Notified Time: 21:10 New Order Received: Yes - Notification Comment Comment: RN spoke with Dr. Nowak. Reported maternal and status, reactive NST. Cervical exam of fingertip. Patient no longer feeling contractions and rates pain a. 0/10. Dr. Nowak states patient may be discharged. Patient updated on plan of care. and is in agreement. Patient has follow up appointment for January 04. Disposition - Disposition OB Disposition: Discharge to home Discharge Date: 12/28/19 Discharge Time: 21:30 I agree with the RN Medical Screening Exam: Yes Risk & Benefit of care provided described in d/c instruction: Yes Diagnosis: FALSE LABOR BEFORE 37 COMPLETED WEEKS OF GEST, THIRD TRI
== END 2019-12-28 21:30 | disposition home or self-care (01) ==
LOC: FBPOP 20:35
PROVIDERS: ATTEND Obstetrics & Gynecology
DX: O47.03 False labor before 37 completed weeks of gestation, third trimester (principal); Z3A.36 36 weeks gestation of pregnancy
CPT/HCPCS: 59025; 99213

== ENCOUNTER 2020-01-17 06:15 | Inpatient (IN) | payer BC, OTHER ==
[2020-01-13 15:07] VITALS: BMI 46.0
--- NOTE | 2020-01-17 09:52 | P.HPOB ---
History of Present Illness H&P Date: 01/17/20 Chief Complaint: macrosomia This is a 24-year-old 1 para 0 woman with an estimated due date of 01/21/2020 based on LMP consistent with early ultrasound. She is admitted for primary low transverse section secondary to suspected macrosomia. Ultrasound at 38 weeks gestation reveals estimated weight of 4000 g, plus or -600 g which is greater than the 95th percentile. Abdominal circumference measures greater than the 97th percentile. The patient was counseled regarding risks and benefits of vaginal delivery specifically is irregularly enlarged to risk of shoulder dystocia. The patient and her partner have decided to proceed with primary low transverse section. Her has been otherwise complicated by ongoing severe hip and back pain and she has not worked in the third trimester secondary to this. She also has a BMI greater than 45. Laboratory data: Blood type A+, antibody screen negative, rubella immune, VDRL nonreactive, hep Kassy surface antigen negative, gonorrhea clinic cultures negative, HIV negative, glucose tolerance testing abnormal 1 hour, normal 3 hour in both first and second trimester. Group B strep positive. Review of Systems All systems: negative Past Medical History Past Medical History: No Reported History Additional Past Medical History / Comment(s): chronic back pain. BRONCHITIS History of Any Multi-Drug Resistant Organisms: None Reported Past Surgical History: Adenoidectomy, Ear Surgery, Orthopedic Surgery, Tonsillectomy Additional Past Surgical History / Comment(s): right ankle SX Past Anesthesia/Blood Transfusion Reactions: No Reported Reaction Smoking Status: Never smoker - Past Family History Father Family Medical History: Cancer Medications and Allergies Home Medications Medication Instructions Recorded Confirmed Type Pnv,Calcium 72/Iron/Folic Acid 1 tab PO DAILY 11/07/19 01/13/20 History [ Plus Tablet] Allergies Allergy/AdvReac Type Severity Reaction Status Date / Time amoxicillin AdvReac Nausea & Verified 01/13/20 15:01 Vomiting milk AdvReac Nausea & Verified 01/13/20 15:01 Vomiting Exam This is a pleasant, obese female who is visibly gravid. HEENT exam is unremarkable. Her breathing is unlabored and her heart is of regular rate and rhythm. The abdomen is gravid with a fundal height of 42 cm. On recent pelvic examination the cervix is fingertip dilated thick and posterior. She has 1+ bilateral lower extremity edema, symmetric. Assessment and Plan (1) 39 weeks gestation of Current Visit: Yes Status: Acute Code(s): Z3A.39 - 39 WEEKS GESTATION OF SNOMED Code(s): 50489421 (2) macrosomia affecting management of mother, antepartum Current Visit: Yes Status: Acute Code(s): O36.60X0 - MATERNAL CARE FOR EXCESS GROWTH, UNSP TRIMESTER, UNSP SNOMED Code(s): 63071875 (3) Maternal obesity affecting , antepartum Narrative/Plan: This is a 24-year-old 1 para 0 woman admitted at 39+ weeks gestation for primary low transverse section secondary to suspected macrosomia on third trimester ultrasound. The patient was counseled regarding the possibi lity of shoulder dystocia with an estimated weight greater than 4000 g with an abdominal circumference measuring greater than the 97th percentile. She was also counseled regarding section. Specifically the risks of the procedure were reviewed to include bleeding, transfusion, infection, damage to bowel, bladder, ureters, uterus and/or other pelvic and abdominal structures, and possible injury. She is also counseled regarding implications for future pregnancies with history of a previous section. She was counseled regarding the anticipated recovery time of section versus vaginal delivery. Consent is obtained for primary low transverse section. She is known group B strep positive and Rh+. Current Visit: Yes Status: Acute Code(s): O99.210 - OBESITY COMPLICATING , UNSPECIFIED TRIMESTER SNOMED Code(s): 061734012667 (4) GBS (group B Streptococcus carrier), +RV culture, currently Current Visit: Yes Status: Acute Code(s): O99.820 - STREPTOCOCCUS B CARRIER STATE COMPLICATING SNOMED Code(s): 5930440330304 (5) Back pain during Current Visit: Yes Status: Acute Code(s): O99.89 - OTH DISEASES AND CONDITIONS COMPL PREG/CHLDBRTH; M54.9 - DORSALGIA, UNSPECIFIED SNOMED Code(s): 228452841
[2020-01-17] MEDS ORDERED: CITRIC ACID-SODIUM CITRATE 15 ML CUP PO ONE (10:21)
[2020-01-17] MEDS ORDERED: ceFAZolin 3 GM in SODIUM CHLORIDE 0.9% 100 ML IVPB ONE (10:21)
[2020-01-17 10:49] LABS: Basophils % (A) 0 %; Eosinophils # (A) 0.1 k/uL (0-0.7); Eosinophils % (A) 1 %; HCT 34.7 % (34.0-46.0); HGB 11.5 gm/dL (11.4-16.0); Lymphocytes # (A) 2.6 k/uL (1.0-4.8); Lymphocytes % (A) 25 %; MCH 28.5 pg (25.0-35.0); MCHC 33.1 g/dL (31.0-37.0); MCV 86.2 fL (80.0-100.0); Monocytes # (A) 0.4 k/uL (0-1.0); Monocytes % (A) 4 %; Neutrophils % (A) 68 %; Platelet Count 266 k/uL (150-450); RBC 4.02 m/uL (3.80-5.40); RDW 15.3 % (11.5-15.5); WBC 10.3 k/uL (3.8-10.6)
[2020-01-17] MEDS ORDERED: PHENYLEPHRINE-0.9% NACL SYG 1 MG/10 ML SYRINGE ONE (12:04)
[2020-01-17] MEDS ORDERED: KETOROLAC 30 MG/ML 1 ML VIAL ONE (12:04)
[2020-01-17] MEDS ORDERED: MORPHINE SULFATE (PF) 0.3 MG/0.3 ML SYR ONE (12:04)
[2020-01-17] MEDS ORDERED: fentaNYL (PF) 50 MCG/ML 2 ML AMP ONE (12:04)
[2020-01-17] MEDS ORDERED: ONDANSETRON 4 MG/2 ML VIAL ONE (12:04)
[2020-01-17] MEDS ORDERED: OXYTOCIN 10 UNIT/ML 1 ML VIAL ONE (12:04)
[2020-01-17] MEDS ORDERED: diphenhydrAMINE 50 MG/ML 1 ML VIAL IVP PRN ×4 (13:13→15:13)
[2020-01-17] MEDS ORDERED: diphenhydrAMINE 25 MG CAP PO PRN ×2 (13:13→15:13)
[2020-01-17] MEDS ORDERED: NALOXONE 0.4 MG/ML 1 ML VIAL IV PRN (13:13)
[2020-01-17] MEDS ORDERED: SIMETHICONE 80 MG CHEWABLE PO PRN (13:13)
[2020-01-17] MEDS ORDERED: ONDANSETRON 4 MG/2 ML VIAL IVP PRN (13:13)
[2020-01-17] MEDS ORDERED: ZOLPIDEM 5 MG TAB PO PRN (13:13)
[2020-01-17] MEDS ORDERED: diphenhydrAMINE 50 MG CAP PO PRN ×2 (13:13→15:13)
[2020-01-17] MEDS ORDERED: METOCLOPRAMIDE 5 MG/ML 2 ML VIAL IVP PRN (13:13)
[2020-01-17] MEDS ORDERED: ACETAMINOPHEN TAB 325 MG TAB PO PRN (13:13)
--- NOTE | 2020-01-17 13:13 | P.OP ---
Date of Procedure: 01/17/20 Preoperative Diagnosis: Intrauterine at 39-3/7 weeks gestation Suspected macrosomia by ultrasound Maternal obesity Group B strep positive Chronic back pain Postoperative Diagnosis: Same Procedure(s) Performed: Primary low transverse section Anesthesia: spinal Surgeon: Patty Stone Oncology Technician #1: Fredi Nowak Estimated Blood Loss (ml): 600 IV fluids (ml): 1,200 Urine output (ml): 100 Pathology: none sent Condition: stable Disposition: floor Operative Findings: Male in vertex presentation with Apgars of 9 at 1 minute and 9 at 5 minutes weighing 8 lbs. 15 oz., 4050 g. Intact, three-vessel cord placenta. Description of Procedure: After the patient was met preoperatively and all questions were answered, she taken the operating room where anesthetic was administered without incident. She was in positioned, prepped and draped in the dorsal supine position with a leftward tilt. Rodriguez catheter was in place. Appropriate timeout had been undertaken. After anesthetic was confirmed adequate a low transverse skin incision was made and carried down to the underlying fascia sharply. The fascia was incised in the midline and extended bilaterally with the Garzon scissors. The inferior and superior aspects of fascial incision were elevated and the underlying rectus muscles dissected off sharply. The rectus muscles were bluntly in the midline and the peritoneum was tented up and entered sharply. The peritoneal incision was extended inferiorly and superiorly with good visualization of the bladder. The bladder blade was placed. A low transverse uterine incision was made and carried down to the underlying amniotic membranes sharply. The membranes were ruptured and clear fluid was noted. The uterine incision was extended bilaterally bluntly. The infant's head was then delivered to the level of the vertex however there was some difficulty delivering from the incision. Therefore the vacuum was applied 1 which fa cilitated delivery of the head. The rest the infant was then delivered onto the field. The nose and mouth were bulb suctioned. The cord was clamped and cut and the infant was taken to the warmer. An intact, three-vessel cord placenta was expressed. The uterus was manually removed from the abdomen and cleared of all clot and debris. The incision was delineated using Nunes clamps. The incision was then closed in a running locked fashion with 0 Vicryl suture followed by second imbricating layer of the same. The uterus was returned to the abdomen and the gutters were cleared of all clot and debris. Additional [id number] suture was placed along the incision for hemostasis. The rest incision was inspected and noted to be hemostatic. Bovie electrocautery was utilized along the left rectus muscle for some bleeding which was controlled. The rest the rectus was, fascial edges and peritoneal edges were inspected and noted to be hemostatic. The fascia was then closed in a running locked fashion with 0 Vicryl suture followed by closure of the subcutaneous tissue after it was irrigated. The skin was then closed in a subcu fashion with 4-0 Vicryl suture. All counts reported to me as correct by the operating room staff and the patient did receive Pitocin at cord clamp and antibiotics preprocedure. The patient and infant were transported recovery area in stable condition.
[2020-01-17] MEDS ORDERED: OXYTOCIN 20 UNITS/1000 ML NS 1,000 ML IV SCH (13:15)
[2020-01-17] MEDS: LACTATED RINGERS 1,000 ML IV SCH ×5 (13:27→22:18)
[2020-01-17] MEDS: SENNOSIDES-DOCUSATE SODIUM 1 EACH TAB PO SCH (21:00)
[2020-01-17] MEDS: KETOROLAC 30 MG/ML 1 ML VIAL IVP PRN (21:00)
[2020-01-18] MEDS: LACTATED RINGERS 1,000 ML IV SCH ×3 (00:40→21:18)
[2020-01-18 05:27] LABS: HCT 33.3 % (34.0-46.0); HGB 10.9 gm/dL (11.4-16.0); MCH 28.6 pg (25.0-35.0); MCHC 32.8 g/dL (31.0-37.0); Mean Platelet Volume 7.7; Platelet Count 237 k/uL (150-450); RBC 3.83 m/uL (3.80-5.40); RDW 15.4 % (11.5-15.5); WBC 11.6 k/uL (3.8-10.6)
[2020-01-18 05:54] LABS: Basophils # (M) 0.12 k/uL (0-0.2); Eosinophils # (M) 0.23 k/uL (0-0.7); Lymphocytes # (M) 2.67 k/uL (1.0-4.8); Monocytes # (M) 0.58 k/uL (0-1.0); Neutrophils % (M) 69 %; Nucleated Red Blood Cells 0 /100 WBC (0-0); Total Cells Counted 100
--- NOTE | 2020-01-18 07:38 | P.PN ---
Progress Note - Text Progress Note Date: 01/18/20 Patient doing well. Ambulating without weakness or paresthesia. Denies headache. Mild pruritis. Pain well controlled. VSS Back - spinal site c/d A/P POD#1 s/p w/ duramorph - doing well
--- NOTE | 2020-01-18 07:58 | P.PNOBGPC ---
Subjective - Subjective Principal diagnosis: Postop day 1 Interval history: Feeling well, pain controlled and tolerating general diet. Able to void spontaneously with catheter out. Patient reports: Reports appetite normal, Reports voiding normally, Reports pain well controlled, Reports ambulating normally, Denies dizzy ambulation, Denies nauseated : doing well Objective - Vital Signs Latest vital signs: Vital Signs Temp Pulse Resp BP Pulse Ox 01/18/20 04:00 98.8 F 96 16 136/80 98 01/18/20 02:00 16 01/18/20 00:00 98.1 F 91 16 115/80 98 01/17/20 22:00 16 01/17/20 20:00 98.3 F 70 16 124/81 98 01/17/20 16:00 98.2 F 85 18 121/65 96 01/17/20 15:17 98.2 F 83 16 111/64 96 01/17/20 14:47 80 16 123/58 97 01/17/20 14:17 74 18 101/58 98 01/17/20 14:02 76 18 104/56 99 01/17/20 13:47 82 16 100/64 98 01/17/20 13:32 76 16 103/70 98 01/17/20 13:17 97.4 F L 78 18 110/70 100 01/17/20 11:15 97.7 F 104 H 16 129/78 Intake and Output 01/17/20 01/18/20 01/18/20 22:59 06:59 14:59 Intake Total 1200 600 Output Total 425 300 Balance 775 300 Intake: IV 1200 Oral 600 Output: Urine 425 300 Uretheral (Rodriguez) 125 - Exam Extremities: Present: edema Abdomen: Present: normal appearance, soft. Absent: distention, tenderness Incision: Present: normal, dry, intact. Absent: erythematous, edematous Uterus: Present: normal, firm, tenderness - Labs Labs: Abnormal Lab Results - Last 24 Hours (Table) 01/18/20 Range/Units 05:01 WBC 11.6 H (3.8-10.6) k/uL Hgb 10.9 L (11.4-16.0) gm/dL Hct 33.3 L (34.0-46.0) % Neutrophils # (Manual) 8.00 H (1.3-7.7) k/uL Assessment and Plan (1) 39 weeks gestation of Current Visit: Yes Status: Acute Code(s): Z3A.39 - 39 WEEKS GESTATION OF SNOMED Code(s): 00561379 (2) macrosomia affecting management of mother, antepartum Current Visit: Yes Status: Acute Code(s): O36.60X0 - MATERNAL CARE FOR EXCESS GROWTH, UNSP TRIMESTER, UNSP SNOMED Code(s): 89585869 (3) Maternal obesity affecting , antepartum Current Visit: Yes Status: Acute Code(s): O99.210 - OBESITY COMPLICATING MI EGNANCY, UNSPECIFIED TRIMESTER SNOMED Code(s): 857873872805 (4) GBS (group B Streptococcus carrier), +RV culture, currently Current Visit: Yes Status: Acute Code(s): O99.820 - STREPTOCOCCUS B CARRIER STATE COMPLICATING SNOMED Code(s): 6115034222247 (5) Back pain during Current Visit: Yes Status: Acute Code(s): O99.89 - OTH DISEASES AND CONDITIONS COMPL PREG/CHLDBRTH; M54.9 - DORSALGIA, UNSPECIFIED SNOMED Code(s): 626109920 Plan: Postop day 1 status post primary low transverse section for suspected macrosomia. Recovering well this morning. Routine care. Anticipate discharge home tomorrow.
[2020-01-18] MEDS: SENNOSIDES-DOCUSATE SODIUM 1 EACH TAB PO SCH ×2 (08:05→21:18)
[2020-01-18] MEDS: KETOROLAC 30 MG/ML 1 ML VIAL IVP PRN (08:05)
[2020-01-18] MEDS: IBUPROFEN 600 MG TAB PO PRN ×2 (14:14→23:12)
[2020-01-18] MEDS: HYDROcodone/APAP 7.5-325MG 1 EACH TAB PO PRN (17:48)
[2020-01-19] MEDS: HYDROcodone/APAP 7.5-325MG 1 EACH TAB PO PRN (01:13)
--- NOTE | 2020-01-19 08:27 | P.DS ---
Providers Date of admission: 01/17/20 09:39 Expected date of discharge: 01/19/20 Attending physician: Patty Stone Primary care physician: Sarath Sykes - Discharge Diagnosis(es) (1) 39 weeks gestation of Current Visit: Yes Status: Acute (2) macrosomia affecting management of mother, antepartum Current Visit: Yes Status: Acute (3) Maternal obesity affecting , antepartum Current Visit: Yes Status: Acute (4) GBS (group B Streptococcus carrier), +RV culture, currently Current Visit: Yes Status: Acute (5) Back pain during Current Visit: Yes Status: Acute Hospital Course: This is a 24-year-old 1 now para 1 woman who is admitted at 39+ weeks gestation for primary low transverse section secondary to suspected macrosomia. She had an ultrasound with estimated weight greater than 4000 g and an abdominal circumference greater than the 97th percentile. Please see the history and physical for details. Following admission she went to the operating room where she underwent an uncomplicated primary low transverse section. Findings at the time of surgery were significant for a liveborn male infant weighing 8 lbs. 14 oz. with Apgars of 9 at 1 minute and 9 at 5 minutes. Please see the operative report for details. The patient's postoperative course was unremarkable. By postoperative day #1 she was ambulating and voiding without difficulty. Her vital signs were stable and she was tolerating a general diet. Her incision appeared intact and well-healing. By postoperative day #2 she continued to do well her pain was well-controlled with oral pain medications and her incision was well healing. She decided to the bottle feed. She was therefore discharged home with routine instructions for postoperative care and follow-up as well as COVID 19 precautions. Procedures: Primary low transverse section Patient Condition at Discharge: Good Plan - Discharge Summary Discharge Rx Participant: Yes New Discharge Prescriptions: New Ibuprofen [Motrin] 600 mg PO Q6HR PRN #30 tab PRN Reason: Mild Pain Or Fever >= 100.5 HYDROcodone/APAP 7.5-325MG [[place] 7.5-325] 1 each PO Q6H PRN 7 Days #20 tab PRN Reason: Severe Pain No Action Pnv,Calcium 72/Iron/Folic Acid [ Plus Tablet] 1 tab PO DAILY Discharge Medication List Pnv,Calcium 72/Iron/Folic Acid [ Plus Tablet] 1 tab PO DAILY 11/07/19 [History] HYDROcodone/APAP 7.5-325MG [Medora 7.5-325] 1 each PO Q6H PRN 7 Days #20 tab [Rx] Ibuprofen [Motrin] 600 mg PO Q6HR PRN #30 tab 01/19/20 [Rx] Follow up Appointment(s)/Referral(s): Patty Stone MD [STAFF PHYSICIAN] - 2 Weeks Activity/Diet/Wound Care/Special Instructions: Follow-up in 2 weeks after surgery in the office. Call the office with any concerning signs or symptoms including fever greater than 101, severe abdominal pain, heavy vaginal bleeding, signs of wound infection, increased swelling or redness of the lower extremities, signs of depression. No driving for 2 weeks after surgery. No heavy lifting or vigorous activity until reevaluated in the office. No intercourse for 6 weeks after delivery. Discharge Disposition: HOME SELF-CARE
[2020-01-19] MEDS: IBUPROFEN 600 MG TAB PO PRN (09:35)
[2020-01-19] MEDS: SENNOSIDES-DOCUSATE SODIUM 1 EACH TAB PO SCH (09:35)
[2020-01-19 10:17] VITALS: BP 136/70; PULSE 101; RESP 18; TEMP 97.6
== END 2020-01-19 11:26 | disposition home or self-care (01) | DRG 787 ==
LOC: 4FBP 09:39
PROVIDERS: ADMIT Obstetrics & Gynecology; ATTEND Obstetrics & Gynecology
PROC: 10D00Z1 Extraction of Products of Conception, Low, Open Approach (ICD-10-PCS; principal; 2020-01-17 12:26)
DX: O36.63X0 Maternal care for excessive fetal growth, third trimester, not applicable or unspecified (principal); O99.354 Diseases of the nervous system complicating childbirth; O99.214 Obesity complicating childbirth; E66.9 Obesity, unspecified; G89.29 Other chronic pain; O99.824 Streptococcus B carrier state complicating childbirth; M54.9 Dorsalgia, unspecified; M25.559 Pain in unspecified hip; O99.72 Diseases of the skin and subcutaneous tissue complicating childbirth; L29.9 Pruritus, unspecified; Z37.0 Single live birth; Z3A.39 39 weeks gestation of pregnancy; Z88.0 Allergy status to penicillin; Z91.011 Allergy to milk products; Z80.9 Family history of malignant neoplasm, unspecified
CPT/HCPCS: 85025; 86850; 86900; 86901

== ENCOUNTER 2021-05-17 00:54 | Emergency (ER) | payer BC, OTHER ==
--- NOTE | 2021-05-17 01:32 | ED ---
Neck Injury/Pain HPI - General Chief Complaint: Neck Pain/Injury Stated Complaint: Neck pain Time Seen by Provider: 05/17/21 01:03 Mode of arrival: ambulatory - History of Present Illness Initial Comments: 25-year-old female presents emergency Department with a chief complaint of neck pain. States his abdominal for the past several months. Pain is worse with left rotation. She denies taking medication to alleviate the symptoms. Denies any associated paresthesias or weakness in the extremities. Denies any injuries to the neck. States she is also concern for . She took a Prevacid test at home that was negative. - Related Data Home Medications Medication Instructions Recorded Confirmed Pnv,Calcium 72/Iron/Folic Acid 1 tab PO DAILY 11/07/19 01/17/20 [ Plus Tablet] Previous Rx's Medication Instructions Recorded HYDROcodone/APAP 7.5-325MG [[place] 1 each PO Q6H PRN 7 Days #20 tab 01/19/20 7.5-325] Ibuprofen [Motrin] 600 mg PO Q6HR PRN #30 tab 01/19/20 Cyclobenzaprine [Flexeril] 5 mg PO TID PRN #15 tablet 05/17/21 Allergies Allergy/AdvReac Type Severity Reaction Status Date / Time amoxicillin AdvReac Nausea & Verified 05/17/21 01:01 Vomiting milk AdvReac Nausea & Verified 05/17/21 01:01 Vomiting Review of Systems ROS Statement: Those systems with pertinent positive or pertinent negative responses have been documented in the HPI. ROS Other: All systems not noted in ROS Statement are negative. Past Medical History Past Medical History: No Reported History, GERD/Reflux Additional Past Medical History / Comment(s): chronic back pain. BRONCHITIS. bulding disc in lumbar History of Any Multi-Drug Resistant Organisms: None Reported Past Surgical History: Adenoidectomy, Appendectomy, Ear Surgery, Orthopedic Surgery, Tonsillectomy Additional Past Surgical History / Comment(s): right ankle SX Past Anesthesia/Blood Transfusion Reactions: No Reported Reaction Past Psychological History: Anxiety Smoking Status: Never smoker Past Alcohol Use History: None Reported Past Drug Use History: None Reported - Past Family History Father Family Medical History: Cancer General Exam Limitations: no limitations General appearance: alert, in no apparent distress, obese Head exam: Present: atraumatic, normocephalic, normal inspection Eye exam: Present: normal appearance, PERRL, EOMI Pupils: Present: normal accommodation ENT exam: Present: normal exam, normal oropharynx, mucous membranes moist Neck exam: Present: normal inspection, tenderness (Bilateral paraspinal tenderness in the cervical spine), full ROM. Absent: lymphadenopathy Respiratory exam: Present: normal lung sounds bilaterally. Absent: respiratory distress Cardiovascular Exam: Present: regular rate, normal rhythm, normal heart sounds. Absent: systolic murmur Extremities exam: Present: normal inspection, full ROM, normal capillary refill. Absent: tenderness, pedal edema, joint swelling Back exam: Present: normal inspection, full ROM. Absent: tenderness, CVA tenderness (R), CVA tenderness (L) Neurological exam: Present: alert, oriented X3 Psychiatric exam: Present: normal affect, normal mood Skin exam: Present: warm, dry, intact, normal color Course Vital Signs 05/17/21 00:56 Temperature 98.2 F Pulse Rate 74 Respiratory 19 Rate Blood Pressure 128/86 O2 Sat by Pulse 99 Oximetry Medical Decision Making - Medical Decision Making 25-year-old female presents emergency Department with a chief complaint of neck pain. On physical examination, mild cervical tenderness paraspinal. X-ray is unremarkable. She is not . Likely cervical strain. PCP follow-up. Will be discharged with Flexeril. Case discussed physician. - Lab Data Lab Results 05/17/21 Range/Units 01:23 Urine HCG, Qual Not Detected (Not Detectd) Disposition Clinical Impression: Strain of neck muscle Disposition: HOME SELF-CARE Condition: Stable Instructions (If sedation given, give patient instructions): Cervical Strain (ED) Additional Instructions: Please return to the Emergency Department if symptoms worsen or any other concerns. Prescriptions: Cyclobenzaprine [Flexeril] 5 mg PO TID PRN #15 tablet PRN Reason: Muscle Spasm Is patient prescribed a controlled substance at d/c from ED?: No Referrals: Sarath Sykes DO [Primary Care Provider] - 1-2 days Time of Disposition: 02:16
--- NOTE | 2021-05-17 02:01 | XR ---
EXAMINATION TYPE: XR cervical spine comp DATE OF EXAM: 05/17/2021 COMPARISON: NONE HISTORY: Neck pain TECHNIQUE: 6 views FINDINGS: Cervical vertebra have normal spacing and alignment. Posterior elements are intact. There a re no cervical ribs. Atlantoaxial facet joint is normal. IMPRESSION: Normal cervical spine exam.
[2021-05-17] MEDS ORDERED: CYCLOBENZAPRINE 10MG STARTER 3 TAB BTL PO STA (02:06)
[2021-05-17 02:36] VITALS: BP 126/93; PULSE 82; RESP 16; TEMP 98.1
== END 2021-05-17 02:32 | disposition home or self-care (01) ==
LOC: EC 00:54
DX: S16.1XXA Strain of muscle, fascia and tendon at neck level, initial encounter (principal); F41.9 Anxiety disorder, unspecified; Z79.1 Long term (current) use of non-steroidal anti-inflammatories (NSAID); Z88.0 Allergy status to penicillin; X58.XXXA Exposure to other specified factors, initial encounter
CPT/HCPCS: 72050; 81025; 99283

== ENCOUNTER → 2021-07-31 | Outpatient (CLI) | payer BC, OTHER ==
[2021-07-31 10:16] VITALS: BP 101/65; PULSE 92; RESP 18; TEMP 97.8
--- NOTE | 2021-07-31 10:45 | P.PAINCN ---
History of Present Illness - Reason for Consult Consult date: 07/31/21 - History of Present Illness This is 25 years old female with a chronic history of severe low back pain, started 7 years ago, after she fell from the bench ( was sitting on the bench in the morning and fell backward ) she reported that from that time she started having back pain issues, pain is constant and increases with any activity interfering with her quality of life, he denies any motor or sensory deficit she denies any numbness or tingling sensation, she denies any fever or night sweats, she'll currently take medications Motrin 800 mg 3 times a day and Flexeril 5 mg 3 times a day , she'll get some benefit from it , she had difficulty sleeping at night. Past Medical History Past Medical History: GERD/Reflux Additional Past Medical History / Comment(s): chronic back pain. BRONCHITIS. bulding disc in lumbar History of Any Multi-Drug Resistant Organisms: None Reported Past Surgical History: Adenoidectomy, Appendectomy, Section, Ear Surgery, Orthopedic Surgery, Tonsillectomy Additional Past Surgical History / Comment(s): right ankle SX Past Anesthesia/Blood Transfusion Reactions: No Reported Reaction Past Psychological History: Anxiety Additional Psychological History / Comment(s): NO MEDS AT THIS TIME. Smoking Status: Never smoker Past Alcohol Use History: None Reported Past Drug Use History: Marijuana - Past Family History Father Family Medical History: Cancer Medications and Allergies Home Medications Medication Instructions Recorded Confirmed Type Atorvastatin [Lipitor] 20 mg PO HS 07/25/21 07/25/21 History Cyclobenzaprine [Flexeril] 10 mg PO TID PRN 07/25/21 07/25/21 History Etonogestrel [Nexplanon] 68 mg SQ DIRECTED 07/25/21 07/25/21 History Ibuprofen [Motrin] 800 mg PO TID PRN 07/25/21 07/25/21 History metFORMIN HCL 500 mg PO AC-SUPPER 07/25/21 07/25/21 History Amitriptyline HCl [Elavil] 25 mg PO HS 30 Days #30 tablet 07/31/21 Rx Allergies Allergy/AdvReac Type Severity Reaction Status Date / Time amoxicillin AdvReac Nausea & Verified 07/25/21 13:03 Vomiting milk AdvReac Nausea & Verified 07/25/21 13:03 Vomiting Physical Exam Vitals: Vital Signs Temp Pulse Resp BP Pulse Ox 07/31/21 10:10 97.8 F 92 18 101/65 95 Physical Examinations : -Constitutiona : Cooperative , not in acute distress . -HEENT : nech : supple , no Lymphadenopathy , normal thyroid size . : eyes : no ptosis , no icterus, no photophobia . - neurologic : Cranial nerve II to XII intact , no focal neurological deffecit . -psychatric : alert , oriented X 3 , appropriate affect , intact judgment and insight . -Lymphatic : no Lymphadenopathy . - musculoskeltal : Cervical Spine motor stregnth in the deltoid and biceps, normal right side , normal Left side motor stregnth biceps and the wrist extensors normal right side ,normal left side . motor stregnth in the triceps muscle . normal Right side , normal Left side deep tendon reflexes normal at the biceps , normal at Brachioradialis , normal at triceps. . Lumber spine moter stegnth lower extremities ,thigh and legs 5/5 Right side , 5/5 Left side deep tendon reflexes : normal Knee Jerk , normal ankle Jerk lumber facet Loading Test = negative bilaterally Range of motion of the lumbar spine Flexion 30 degrees, extension 10 degrees strait leg raising test = negative bilaterally Fabere test= negative laterally . mild tenderness over the Sacroiliac joint on the Right , and Left sides generalized tenderness in the lumbar paraspinal muscles. Results Comments: MRI of the lumbar spine L4-S1 1-2 mm annular bulging disc is no evidence of central canal stenosis and no evidence of foraminal stenosis Assessment and Plan Plan: Assessment and plan=1-myofascial pain syndrome. 2-lumbar degenerative disc disease. 3-morbid obesity. Patient could benefit from muscle relaxant she is already on Flexeril, and Motrin. And could benefit from amitriptyline 25 mg daily at bedtime ,it will be adjuvent for pain, and it will help sleep. recommend to continue physical therapy . Follow-up PRN Time with Patient: Greater than 30 PQRS Measure Charge Sheet Measure #130: Documentation of Current Meds in Medical Chart: Patient's medications documented in chart Measure #226: Tobacco Use: Screen & Cessation Intervention: Pt not a tobacco user Measure #111: Pneumonia Vaccination: Pneumococcal vaccine NOT administered or previously given Measure #47: Advance Care Plan: Advance care planning discussed & documented, pt chose/unable to give Measure #412: Opioid Treatment Agreement: No documentation of signed opioid treatment agreement Measure #408: Opioid Therapy Follow-up Evaluation: Patient had NO f/u eval minimum every 3 months during opioid therapy Measure #317: Preventitive Care & Scrn High Bld Press & F/U: Normal blood pressure, f/u not required Measure #128: Body Mass Index (BMI) Screening & Follow-up: BMI documented ABOVE normal parameters - f/u documented Measure #131: Pain Assessment & Follow-up: Pain positive & plan documented, Follow-up scheduled, Follow-up PRN Measure #431: Unhealthy Alcohol Use Preventative Care & Scrn: Patient not identified as an unhealthy alcohol user Mode of Arrival: Ambulatory - Pain Location Lower Back Non-Pharmacological Interventions: Heat, Inactivity, Physical Therapy Pharmacological Interventions: Medication PQRS Narrative: Smoking Status Never smoker Blood Pressure 101/65 Pain Intensity [Lower Back] 8 Scale Used Numeric (1 - 10) Hx Alcohol Use (MH) Yes: Rare Home Medications: Ambulatory Orders Atorvastatin [Lipitor] 20 mg PO HS 07/25/21 Cyclobenzaprine [Flexeril] 10 mg PO TID PRN 07/25/21 Etonogestrel [Nexplanon] 68 mg SQ DIRECTED 07/25/21 Ibuprofen [Motrin] 800 mg PO TID PRN 07/25/21 metFORMIN HCL 500 mg PO AC-SUPPER 07/25/21 Amitriptyline HCl [Elavil] 25 mg PO HS 30 Days #30 tablet 07/31/21
== END ==
LOC: PNWHC3 09:35
PROVIDERS: ATTEND Specialist
DX: M79.18 Myalgia, other site (principal); M51.36 Other intervertebral disc degeneration, lumbar region; E66.01 Morbid (severe) obesity due to excess calories; F41.9 Anxiety disorder, unspecified; Z68.42 Body mass index [BMI] 45.0-49.9, adult; Z91.011 Allergy to milk products; Z88.1 Allergy status to other antibiotic agents
CPT/HCPCS: 99211

== ENCOUNTER → 2022-11-27 | Outpatient (CLI) | payer OTHER ==
--- NOTE | 2022-11-27 11:48 | P.SLEEP ---
History of Present Illness DATE: 11/27/2022 CONSULTATION/NEW PATIENT EVALUATION HISTORY OF PRESENT ILLNESS/SLEEP-WAKE EVALUATION: 27-year-old lady had been evaluated in the sleep center for possible obstructive sleep apnea hypopnea syndrome and significant excessive daytime sleepiness. Patient referred that here sleepiness significantly increased after a COVID-19 in May 2022. SLEEP SCHEDULE: Usually sleep schedule from 12 AM until 8 AM 7 days a week. FALLING ASLEEP: No problems with falling asleep, no TV in bedroom. DURING SLEEP: Patient sleeps in different positions. According to her she has loud snoring and witnessed episodes of stop breathing during the sleep. No history of hypnogogical hallucinations, sleep paralysis, or cataplexy. Significant amount of movements and twitching during the night. DURING THE DAY/WAKE STATE: Patient wake up tired, has difficulties to pay attention, falling asleep during the day. [place] sleepiness scale is at extremely high range of 21. Patient may take 1 nap during the day. PAST MEDICAL HISTORY: COVID-19 in May 2022, diabetes hemoglobin A1c 6.4. PAST SURGICAL HISTORY: Tonsillectomy, adenoidectomy, . MEDICATIONS: Metformin 500 mg. SOCIAL HISTORY: Positive for smoking for 5 pack years, quit 4 years ago, alcohol consumption occasional. FAMILY HISTORY: Hypertension, asthma, cancer. REVIEW OF SYSTEMS: Loud snoring, multiple awakenings from sleep, sleepiness during the day. No fevers. No double vision. No recent chest pain. No shortness of breath. No abdominal pain. No bleeding episodes. No blood in urine. No seizure episodes. PHYSICAL EXAMINATION: GENERAL: A pleasant patient without any distress. VITAL SIGNS: BP 128/83 , HR 102 , RR 18 , weight 321.6 pounds, height 5 foot 7 inches, body mass index 50.2 . HEENT: PERRLA, EOMI. Evaluation of oropharynx showed tongue protrudes midline, low position of soft palate Mallampati 4. NECK: Supple. No JVD. Thyroid is not palpable. 18 inches in circumference. LUNGS: Clear to percussion and to auscultation. Good air exchange. No wheezing or rhonchi. HEART: S1, S2 regular. No murmurs, gallops or rubs. ABDOMEN: Soft and nontender. Bowel sounds are present. No organomegaly appreciated. Obese EXTREMITIES: No clubbing or cyanosis. CABLE ARMORER OPERATOR: Awake, alert, and oriented x3. Cranial nerves 2 to 7 intact. There is no fasciculation or atrophy noted. No focal deficits observed. ASSESSMENT: 1. Loud snoring, witnessed episodes of stop breathing during the sleep, extremely low position of soft palate Mallampati 4, wide neck 18 inches in circumference, significant sleepiness by [place] Sleepiness Scale. Obstructive sleep apnea hypopnea syndrome. 2. Very high level of [place] Sleepiness Scale 21 dictated necessity to include hypersomnia and narcolepsy and differential diagnosis. Patient referred increasing sleepiness after COVID-19 in May 2022. 3. Status post COVID-19 in May 2022. 4. Diabetes mellitus. 5 obesity BMI 50.2. 6 . Significant amount of leg movements during the sleep with twitching. Possibly periodic limb movements. 7. Status post tonsillectomy and adenoidectomy. 8. Status post . PLAN: 1. Polysomnography for evaluation of patient's breathing during sleep. 2. CPAP/BiPAP titration if sleep study confirms obstructive sleep apnea- hypopnea syndrome. 3. Preferable position during sleep on the side. 4. No driving if patient feels any sleepiness. Patient is aware of civil and criminal liability for unsafe driving. 5. Sleep hygiene with regular sleep time for at least 7.5-8 hours. 6. Watching and aggressive losing weight. Thank you very much for referring this patient for consultation. Sincerely, Joey Braden MD, PhD, FAASM. Diplomat of [place] [employer], Sleep Medicine Board by [place] [employer] [place] [employer] Emb[employer]ded Systems Developer of [facility] [place] Past Medical History Past Medical History: No Reported History, GERD/Reflux Additional Past Medical History / Comment(s): chronic back pain. BRONCHITIS. bulding disc in lumbar History of Any Multi-Drug Resistant Organisms: None Reported Past Surgical History: Adenoidectomy, Appendectomy, Ear Surgery, Orthopedic Surgery, Tonsillectomy Additional Past Surgical History / Comment(s): right ankle SX Past Anesthesia/Blood Transfusion Reactions: No Reported Reaction Past Drug Use History: None Reported - Past Family History Father Family Medical History: Cancer Medications and Allergies Home Medications Medication Instructions Recorded Confirmed Type Atorvastatin [Lipitor] 20 mg PO HS 07/25/21 07/25/21 History Cyclobenzaprine [Flexeril] 10 mg PO TID PRN 07/25/21 07/25/21 History Etonogestrel [Nexplanon] 68 mg SQ DIRECTED 07/25/21 07/25/21 History Ibuprofen [Motrin] 800 mg PO TID PRN 07/25/21 07/25/21 History metFORMIN HCL 500 mg PO AC-SUPPER 07/25/21 07/25/21 History Amitriptyline HCl [Elavil] 25 mg PO HS 30 Days #30 tablet 07/31/21 Rx Allergies Allergy/AdvReac Type Severity Reaction Status Date / Time amoxicillin AdvReac Nausea & Verified 07/25/21 13:03 Vomiting milk AdvReac Nausea & Verified 07/25/21 13:03 Vomiting Sleep Note - Sleep Note Sleep Note: Temperature: Pulse Rate: Respiratory Rate: Blood Pressure: SpO2: Height: Weight: BMI: Neck Circumference:
== END | disposition home or self-care (01) ==
LOC: SLEEP 10:42
PROVIDERS: ATTEND Internal Medicine
DX: G47.33 Obstructive sleep apnea (adult) (pediatric) (principal); Z86.16 Personal history of COVID-19; E11.9 Type 2 diabetes mellitus without complications; E66.9 Obesity, unspecified; Z68.43 Body mass index [BMI] 50.0-59.9, adult; Z90.89 Acquired absence of other organs; Z99.89 Dependence on other enabling machines and devices; K21.9 Gastro-esophageal reflux disease without esophagitis; Z88.0 Allergy status to penicillin; Z91.011 Allergy to milk products; Z79.84 Long term (current) use of oral hypoglycemic drugs

== ENCOUNTER → 2023-03-18 | Outpatient (CLI) | payer OTHER ==
--- NOTE | 2023-03-18 16:20 | P.PN ---
Subjective DATE: 03/18/2023 FOLLOW UP VISIT. Patient with obstructive sleep apnea hypopnea syndrome return to sleep center for follow-up visit. Recently patient had sleep study which documented obstructive sleep apnea hypopnea syndrome. Patient was initiated on PAP therapy and today is first visit after treatment was started. Patient was able to use PAP equipment secondary to discomfort on the back of the head. Henderson sleepiness scale is significantly increased to 22. I checked information from PAP unit. PAP unit pressure 10-14, average 11.4 cm H2O. Usage is only several hours. Leak is 4 l/m, which is in acceptable range. Apnea Hypopnea Index is 0.8, which is normal. MEDICATIONS:1. Metformin During physical exam: GENERAL: A pleasant patient without any distress. VITAL SIGNS: BP 127/82, HR 98, RR 20 , weight 316, temperature 98.9. . HEENT: PERRLA, EOMI.low position of soft palate, Mallapati 4 . NECK: Supple. No JVD. LUNGS: Clear to percussion and to auscultation. Good air exchange. No wheezing or rhonchi. HEART: S1, S2 regular. ABDOMEN: Soft and nontender. Obese EXTREMITIES: No clubbing or cyanosis. BOBBIN FIXER: Awake, alert, and oriented x3. No focal deficit. Impressions: 1. Obstructive sleep apnea-hypopnea syndrome in severe range, apnea-hypopnea index 77.6. Patient is trying to use CPAP equipment but has difficulties related to discomfort in the head secondary to headgear, she is using full face mask. Respiration is normal on CPAP. 2. Obesity, BMI around 50. 3. Sleepiness by Henderson Sleepiness Scale in high range. 4. Diabetes mellitus. 5. Status post tonsillectomy and adenoidectomy. 6. Status post . Plan: 1. Continue using PAP equipment every night for the whole night, patient promised to follow recommendations. 2. We'll try to use different style of mask. 3. PAP unit should stay lower then position of the head. 4. Advised patient to remove all remaining water from humidifier canister daily and make it dry after each usage. Refill canister with fresh distilled water before each usage. 5. Sleep hygiene with regular time in bed for at least 8 hours. 6. Precautions related to driving. No driving if feel any sleepiness. 7. I will maintain prescription for PAP supplies including mask, tube, filters. 8. Follow up visit in 1 months or earlier if patient has any problems. 9. Watching and losing weight. Thank you very much for allowing me to participate in the management of your patient. Joey Braden MD, PhD, FAASM. Diplomat of [place] [employer], Sleep Medicine Board by [place] [employer] Design Engineer of [facility]
== END ==
LOC: SLEEP 15:30
PROVIDERS: ATTEND Internal Medicine
DX: G47.33 Obstructive sleep apnea (adult) (pediatric) (principal); E66.9 Obesity, unspecified; E11.9 Type 2 diabetes mellitus without complications; Z98.890 Other specified postprocedural states; Z99.89 Dependence on other enabling machines and devices; Z91.011 Allergy to milk products; Z88.0 Allergy status to penicillin; Z79.84 Long term (current) use of oral hypoglycemic drugs
CPT/HCPCS: 99212

== ENCOUNTER → 2023-04-23 | Outpatient (CLI) | payer OTHER ==
--- NOTE | 2023-04-23 16:30 | P.PN ---
Subjective DATE: 04/23/2023 FOLLOW UP VISIT. Patient with obstructive sleep apnea hypopnea syndrome return to sleep center for follow-up visit. Information from previous visit have been reviewed. Patient was not able to use sure CPAP equipment secondary to family situation. Her ex- did not aloud her to use CPAP unit according to patient. MEDICATIONS:1. Metformin 2. Lisinopril 3. Atorvastatin During physical exam: GENERAL: A pleasant patient without any distress. VITAL SIGNS: BP 127/87, HR 99, RR 12, weight 325.0, temperature 97.8, oxygen saturation at room air 97 % . HEENT: PERRLA, EOMI.low position of soft palate, Mallapati 4 . NECK: Supple. No JVD. LUNGS: Clear to percussion and to auscultation. Good air exchange. No wheezing or rhonchi. HEART: S1, S2 regular. ABDOMEN: Soft and nontender. Obese EXTREMITIES: No clubbing or cyanosis. SERVER ADMINISTRATOR: Awake, alert, and oriented x3. No focal deficit. Impressions: 1. Obstructive sleep apnea-hypopnea syndrome. Patient was not able to use CPAP equipment secondary to family situation. 2. Obesity, BMI 50.9. 3. Diabetes mellitus. 4. Status post tonsillectomy and adenoidectomy. 5. Status post . Plan: 1. Continue using PAP equipment every night for the whole night. Patient promi sed to use CPAP equipment every night starting from tonight. He will extent trial period for another 90 days. 2. To change air filter at least 1-2 times per month. 3. PAP unit should stay lower then position of the head. 4. Advised patient to remove all remaining water from humidifier canister daily and make it dry after each usage. Refill canister with fresh distilled water before each usage. 5. Sleep hygiene with regular time in bed for at least 8 hours. 6. Precautions related to driving. No driving if feel any sleepiness. 7. I will maintain prescription for PAP supplies including mask, tube, filters. 8. Watching and losing weight. 9. Follow up visit in 1-2 months or earlier if patient has any problems. Thank you very much for allowing me to participate in the management of your patient. Jeoy Braden MD, PhD, FAASM. Diplomat of [place] [employer], Sleep Medicine Board by [place] [employer] Pediatric Care Coordinator of [facility] [place]
== END ==
LOC: 3 N SLEEP 15:56
PROVIDERS: ATTEND Internal Medicine
DX: G47.33 Obstructive sleep apnea (adult) (pediatric) (principal); E66.9 Obesity, unspecified; E11.9 Type 2 diabetes mellitus without complications; Z68.43 Body mass index [BMI] 50.0-59.9, adult; Z99.89 Dependence on other enabling machines and devices; Z98.890 Other specified postprocedural states; Z79.899 Other long term (current) drug therapy; Z91.011 Allergy to milk products; Z88.0 Allergy status to penicillin; Z79.84 Long term (current) use of oral hypoglycemic drugs
CPT/HCPCS: 99212

== ENCOUNTER → 2023-06-24 | Outpatient (CLI) | payer OTHER ==
--- NOTE | 2023-06-24 17:35 | P.PN ---
Subjective DATE: 06/24/2023 FOLLOW UP VISIT. Patient with obstructive sleep apnea hypopnea syndrome return to sleep center for follow-up visit. Information from previous visit have been reviewed. Patient is using PAP equipment most of the nights. Sometimes patient has problems related to the pressure. [place] sleepiness scale is 8, which is normal. I checked information from PAP unit. PAP unit pressure 10-14, average 12.1 cm H2O. Usage is 67%, but shorter than 4 hours , average about 1.5 hours per night. Leak is in low range 1.7 l/m. Apnea Hypopnea Index is 0.9, which is normal. MEDICATIONS:1. Metformin 2. Lisinopril 3. Atorvastatin During physical exam: GENERAL: A pleasant patient without any distress. VITAL SIGNS: BP 135/86, HR 98, RR 12 , weight 320.4, temperature 97.6, oxygen saturation at room air 97 % . HEENT: PERRLA, EOMI.low position of soft palate, Mallapati 4 . NECK: Supple. No JVD. LUNGS: Clear to percussion and to auscultation. Good air exchange. No wheezing or rhonchi. HEART: S1, S2 regular. ABDOMEN: Soft and nontender. Obese EXTREMITIES: No clubbing or cyanosis. MANAGER STERILE PROCESSING: Awake, alert, and oriented x3. No focal deficit. Impressions: 1. Obstructive sleep apnea-hypopnea syndrome. Patient started to use CPAP equipment 67% of nights, but short period of usage during the night. Normal respiration on CPAP. 2. Diabetes mellitus. 3. Obesity, BMI 50.8. 4. Status post tonsillectomy and adenoidectomy. 5. Status post . Plan: 1. Continue using PAP equipment every night for the whole night. Patient promised to follow recommendations. We will extend trial periodor another 90 days. I decreased level of pressure in AutoPap to 812 centimeters of water. 2. To change air filter at least 1-2 times per month. 3. PAP unit should stay lower then position of the head. 4. Advised patient to remove all remaining water from humidifier canister daily and make it dry after each usage. Refill canister with fresh distilled water before each usage. 5. Sleep hygiene with regular time in bed for at least 8 hours. 6. Precautions related to driving. No driving if feel any sleepiness. 7. I will maintain prescription for PAP supplies including mask, tube, filters. 8. Watching and losing weight. 9. Follow up visit in 3 months or earlier if patient has any problems. Thank you very much for allowing me to participate in the management of your patient. Joey Braden MD, PhD, FAASM. Diplomat of [place] [employer], Sleep Medicine Board by [employer] Electric Truck Crane Operator of [facility]
== END ==
LOC: 3 N SLEEP 16:41
PROVIDERS: ATTEND Internal Medicine
DX: G47.33 Obstructive sleep apnea (adult) (pediatric) (principal); E11.9 Type 2 diabetes mellitus without complications; E66.9 Obesity, unspecified; Z68.43 Body mass index [BMI] 50.0-59.9, adult; Z99.89 Dependence on other enabling machines and devices; Z79.84 Long term (current) use of oral hypoglycemic drugs; Z98.890 Other specified postprocedural states; Z91.011 Allergy to milk products; Z88.0 Allergy status to penicillin
CPT/HCPCS: 99212

== ENCOUNTER → 2024-01-07 | Outpatient (CLI) | payer OTHER ==
--- NOTE | 2024-01-07 11:31 | CA ---
Transthoracic Echo Report Name: Daniela Hartman Age: 28 Gender: F : 1995 Exam Date: 01/07/2024 08:40 Exam Location: [facility] Echo Ht (in): 67 Wt (lb): 315 Ordering Physician: Sarath Sykes DO Attending/Referring Phys: Sarath Sykes DO Supervisor Cellars Shira Judd RDCS Procedure CPT: Indications: R06.09 Dyspnea Cardiac Hx: Technical Quality: Technically difficult study Contrast 1: Definity Total Dose (mL): 2 Contrast 2: Total Dose (mL): MEASUREMENTS (Male / Female) Normal Values 2D ECHO LV Diastolic Diameter PLAX 4.8 cm 4.2 - 5.9 / 3.9 - 5.3 cm LV Systolic Diameter PLAX 4.3 cm IVS Diastolic Thickness 1.1 cm 0.6 - 1.0 / 0.6 - 0.9 cm LVPW Diastolic Thickness 1.1 cm 0.6 - 1.0 / 0.6 - 0.9 cm LV Relative Wall Thickness 0.5 RV Internal Dim ED PLAX 2.8 cm LA Systolic Diameter LX 3.9 cm 3.0 - 4.0 / 2.7 - 3.8 cm LV Diastolic Volume MOD BP 95.7 cm??? 67 - 155 / 56 - 104 cm??? LV Systolic Volume MOD BP 35.3 cm??? 22 - 58 / 19 - 49 cm??? LV Ejection Fraction MOD BP 63.1 % >= 55 % LV Cardiac Index MOD BP 2162.9 cm???/min???m??? LV Diastolic Volume MOD 4C 119.5 cm??? LV Systolic Volume MOD 4C 54.3 cm??? LV Ejection Fraction MOD 4C 54.5 % LV Cardiac Index MOD 4C 2332.4 cm???/min???m??? LV Diastolic Length 4C 8.3 cm LV Systolic Length 4C 7.4 cm LV Diastolic Volume MOD 2C 68.4 cm??? LV Systolic Volume MOD 2C 20.2 cm??? LV Ejection Fraction MOD 2C 70.5 % LV Cardiac Index MOD 2C 1728.0 cm???/min???m??? LV Diastolic Length 2C 7.3 cm LV Systolic Length 2C 6.4 cm LA Volume 58.5 cm??? 18 - 58 / 22 - 52 cm??? LA Volume Index 21.8 cm???/m??? 16 - 28 cm???/m??? M-MODE Aortic Root Diameter MM 3.3 cm DOPPLER MV Area PHT 3.9 cm??? Mitral E Point Velocity 95.1 cm/s Mitral A Point Velocity 82.6 cm/s Mitral E to A Ratio 1.2 MV Deceleration Time 196.9 ms TR Peak Velocity 249.6 cm/s TR Peak Gradient 24.9 mmHg Right Ventricular Systolic Press 29.3 mmHg FINDINGS Left Ventricle Left ventricular ejection fraction is estimated at 55-60 %. Left ventricular cavity size normal. Mildly increased septal wall thickness. Mildly increased posterior wall thickness. Right Ventricle Normal right ventricular size. Right ventricular systolic pressure within normal limits. Right Atrium Normal right atrial size. Left Atrium Mildly increased left atrial volume. Mitral Valve Structurally normal mitral valve. No mitral stenosis, regurgitation or prolapse. Aortic Valve Trileaflet aortic valve. No aortic valve stenosis or regurgitation. Tricuspid Valve Structurally normal tricuspid valve. Mild tricuspid regurgitation. Pulmonic Valve Structurally normal pulmonic valve. No pulmonic regurgitation. Pericardium No pericardial effusion. Aorta Normal size aortic root and proximal ascending aorta. CONCLUSIONS Normal LV systolic function Previewed by: Dr. Virgilio Gregory MD (Electronically Signed) Final Date: 07 January 2024 11:30
--- NOTE | 2024-01-07 11:37 | CA ---
Stress Echo Report Daniela Hartman Age: 28 Gender: F : 1995 Exam Date: 01/07/2024 09:22 Exam Location: [place] Stress Ht (in): 67 Wt (lb): 315 Ordering Physician: Sarath Sykes DO Referring Physician: Sarath Sykes DO Engine Manager: Bridger Early Technologist Procedure CPT: Indication: R06.09 Dyspnea ICD-9 Codes: Rhythm: Patient History: Cardiac Medications: Medications in past 24 hours: Contrast: Definity Stress Results Protocol: Yariel Total dose(mL): 3 Exercise Duration (min:sec): 4:[address] Depression (mm): Angina Score: Luciano Score: METS: 6.4 Resting HR: 113 Resting BP: 113 / 75 Peak HR: 167 Peak BP: 186 / 84 Max Predicted HR: 192 87 % Max Predicted HR Target HR: 163 Double Product: 70056 Stress Summary: BP Response: Reason for Termination: Reached target heart rate or work-load Cardiac Symptoms: no symptoms ECG Analysis Resting ECG: Stress ECG: Arrhythmia: Echo Analysis Resting Echo: Peak Echo Analysis: MEASUREMENTS (Male/Female) Normal Values CONCLUSIONS Average exercise tolerance. The patient exercised only for 4 minutes and 47 seconds Normal electrocardiogram and echocardiogram in response to exercise Dr. Virgilio Gregory MD (Electronically Signed) Final Date: 07 January 2024 11:37
== END | disposition home or self-care (01) ==
LOC: RADECHMAIN 08:32
PROVIDERS: ATTEND Family Medicine
DX: R06.09 Other forms of dyspnea (principal)
CPT/HCPCS: C8929; C8930; Q9957; 93306; 93351

== ENCOUNTER 2024-01-08 19:58 | Emergency (ER) | payer OTHER ==
[2024-01-08 20:28] VITALS: TEMP 98.2
--- NOTE | 2024-01-08 20:50 | ED ---
Extremity Problem HPI - General Chief complaint: Extremity Problem,Nontraumatic Stated complaint: toe infection Time Seen by Provider: 01/08/24 20:49 Source: patient, RN notes reviewed Mode of arrival: ambulatory Limitations: no limitations - History of Present Illness Initial comments: Patient is a 28-year-old female presented to the ER with a chief complaint of bilateral great toe infection. Patient states she has been having increased of pain, swelling and redness to bilateral great toes for the past week. She states she was seen in urgent care on 01-06-2024 and prescribed Keflex. Patient reports she started taking Keflex yesterday as she had an echo stress test on the and did not want that to interfere with the results. Sh e states today the pain has increased and she started noticing green drainage from right great toe. She states the left one is currently more painful. She states it is painful to walk and put on shoes. Denies any fevers, chills, night sweats, nausea, vomiting, chest pain, shortness of breath, abdominal pain. - Related Data Home Medications Medication Instructions Recorded Confirmed Atorvastatin [Lipitor] 20 mg PO HS 07/25/21 07/25/21 Cyclobenzaprine [Flexeril] 10 mg PO TID PRN 07/25/21 07/25/21 Etonogestrel [Nexplanon] 68 mg SQ DIRECTED 07/25/21 07/25/21 Ibuprofen [Motrin] 800 mg PO TID PRN 07/25/21 07/25/21 metFORMIN HCL 500 mg PO AC-SUPPER 07/25/21 07/25/21 Previous Rx's Medication Instructions Recorded Amitriptyline HCl [Elavil] 25 mg PO HS 30 Days #30 tablet 07/31/21 Sulfamethox-Tmp 800-160Mg [Bactrim 1 each PO Q12HR #20 tab 01/08/24 Ds] Allergies Allergy/AdvReac Type Severity Reaction Status Date / Time clavulanic acid Allergy Nausea & Verified 01/08/24 20:09 [From Augmentin] Vomiting amoxicillin AdvReac Nausea & Verified 01/08/24 20:09 Vomiting milk AdvReac Nausea & Verified 01/08/24 20:09 Vomiting Review of Systems ROS Statement: Those systems with pertinent positive or pertinent negative responses have been documented in the HPI. ROS Other: All systems not noted in ROS Statement are negative. Past Medical History Past Medical History: Diabetes Mellitus, GERD/Reflux Additional Past Medical History / Comment(s): chronic back pain. BRONCHITIS. bulding disc in lumbar History of Any Multi-Drug Resistant Organisms: None Reported Past Surgical History: Adenoidectomy, Appendectomy, Section, Ear Surgery, Orthopedic Surgery, Tonsillectomy Additional Past Surgical History / Comment(s): right ankle SX Past Anesthesia/Blood Transfusion Reactions: No Reported Reaction Past Psychological History: Anxiety Smoking Status: Former smoker Past Alcohol Use History: None Reported Past Drug Use History: Marijuana - Past Family History Father Family Medical History: Cancer General Exam Limitations: no limitations General appearance: alert, in no apparent distress Head exam: Present: atraumatic, normocephalic, normal inspection Eye exam: Present: normal appearance, PERRL, EOMI. Absent: scleral icterus, conjunctival injection, periorbital swelling Respiratory exam: Present: normal lung sounds bilaterally. Absent: respiratory distress, wheezes, rales, rhonchi, stridor Cardiovascular Exam: Present: regular rate, normal rhythm, normal heart sounds. Absent: systolic murmur, diastolic murmur, rubs, gallop, clicks Neurological exam: Present: alert, oriented X3, CN II-XII intact Psychiatric exam: Present: normal affect, normal mood Skin exam: Present: other (Paronychia to bilateral great toes. 2+ bilateral dorsalis pedis pulse. Sensation intact. Patient has full active range of motion.) Course Vital Signs 01/08/24 01/08/24 20:05 21:54 Temperature 98.2 F Pulse Rate 105 H 93 Respiratory 18 20 Rate Blood Pressure 138/88 132/81 O2 Sat by Pulse 100 98 Oximetry Procedures - Incision & Drainage Consent Obtained: verbal consent Indication: Paronychia Site: foot Size (cm): 1 Anesthetic Used: lidocaine 1% (Digital block) I&D Cleaning Method: Alcohol Wipe Sterile Field Used?: Yes Ultrasound used: No Needle Aspiration Performed?: No Irrigation Performed?: No I&D Drainage Obtained: Blood Insertion of drain: No Culture Obtained?: No Patient Tolerated Procedure: well, no complications Medical Decision Making - Medical Decision Making Was pt. sent in by a medical professional or institution (, PA, ASSISTANT ACTIVITIES DIRECTOR, urgent care, hospital, or senior living...) When possible be specific @ -No Did you speak to anyone other than the patient for history (EMS, parent, family, police, friend...)? What history was obtained from this source @ -No Did you review nursing and triage notes (agree or disagree)? Why? @ -I reviewed and agree with nursing and triage notes Were old charts reviewed (outside hosp., previous admission, EMS record, old EKG, old radiological studies, urgent care reports/EKG's, senior living records)? Report findings @ -No old charts were reviewed Differential Diagnosis (chest pain, altered mental status, abdominal pain women, abdominal pain men, vaginal bleeding, weakness, fever, dyspnea, syncope, headache, dizziness, GI bleed, back pain, seizure, CVA, palpatations, mental health, musculoskeletal)? @ -Cellulitis, paronychia, onychomycosis, ingrown toenail, abscess, wound, this list is not meant to be all-inclusive EKG interpreted by me (3pts min.). @ -None X-rays interpreted by me (1pt min.). @ -None done CT interpreted by me (1pt min.). @ -None done U/S interpreted by me (1pt. min.). @ -None done What testing was considered but not performed or refused? (CT, X-rays, U/S, labs)? Why? @ -None What meds were considered but not given or refused? Why? @ -None Did you discuss the management of the patient with other professionals ( professionals i.e. , PA, ASSISTANT ACTIVITIES DIRECTOR, lab, RT, psych nurse, social science manager, ore roaster, teacher, community cultural development officer, information systems security manager)? Give summary @ -No Was smoking cessation discussed for >3mins.? @ -No Was critical care preformed (if so, how long)? @ -No Were there social determinants of health that impacted care today? How? (Homelessness, low income, unemployed, alcoholism, drug addiction, transportation, low edu. Level, literacy, decrease access to med. care, long-term, rehab)? @ -No Was there de-escalation of care discussed even if they declined (Discuss DNR or withdrawal of care, Hospice)? DNR status @ -No What co-morbidities impacted this encounter? (DM, HTN, Smoking, COPD, CAD, Cancer, CVA, ARF, Chemo, Hep., AIDS, mental health diagnosis, sleep apnea, morbid obesity)? @ -Obese and diabetes Was patient admitted / discharged? Hospital course, mention meds given and route, prescriptions, significant lab abnormalities, going to OR and other pertinent info. @ -Discharge. Patient is a 28-year-old female presenting to the ER with a chief complaint of bilateral toe pain. History and physical exam completed. Vitals stable. Patient in no signs of acute distress and nontoxic-appearing. Patient's bilateral great toes with erythema to medial aspect of cuticle. Bilateral lower extremities neurovascular intact. Wounds believed to be paronychia. Digital block performed bilaterally on great toes. Paronychia punctured with 22-gauge needle. Patient tolerated procedure well. I advised patient to continue taking Keflex as prescribed by Urgent Care. I prescribed Bactrim for MRSA prophylaxis. I educated patient on importance of completing full course antibiotics. I advised patient to follow-up with heart coordinator in the next 1 to 2 days. Strict return parameters discussed. Patient discharged stable condition with follow-up to PCP/podiatry. Patient expressed understanding and agreement with care plan. Undiagnosed new problem with uncertain prognosis? @ -No Drug Therapy requiring intensive monitoring for toxicity (Heparin, Nitro, Insulin, Cardizem)? @ -No Were any procedures done? @ -Yes Diagnosis/symptom? @ -Paronychia Acute, or Chronic, or Acute on Chronic? @ -Acute Uncomplicated (without systemic symptoms) or Complicated (systemic symptoms)? @ -Uncomplicated Side effects of treatment? @ -No Exacerbation, Progression, or Severe Exacerbation? @ -No Poses a threat to life or bodily function? How? (Chest pain, [place], [place], pneumonia, PE, COPD, DKA, ARF, appy, cholecystitis, CVA, Diverticulitis, Homicidal, Suicidal, threat to staff... and all critical care pts) @ -No Disposition Clinical Impression: Paronychia due to ingrown nail Disposition: HOME SELF-CARE Condition: Stable Instructions (If sedation given, give patient instructions): Paronychia (ED) Additional Instructions: Please follow-up with podiatry in the next 1 to 2 days. Please complete full course of antibiotics. I will be prescribing Bactrim in addition to Keflex. Return to the ER for any new or worsening symptoms. Prescriptions: Sulfamethox-Tmp 800-160Mg [Bactrim Ds] 1 each PO Q12HR #20 tab Is patient prescribed a controlled substance at d/c from ED?: No Referrals: Sarath Sykes DO [Primary Care Provider] - 1-2 days Time of Disposition: 21:42
[2024-01-08] MEDS: LIDOCAINE 1% INJ 10MG/ML (20 ML MDV) SQ ONE (20:56)
[2024-01-08 22:14] VITALS: BP 132/81; PULSE 93; RESP 20
== END 2024-01-08 21:54 | disposition home or self-care (01) ==
LOC: EC 19:58
DX: L60.0 Ingrowing nail (principal); E11.9 Type 2 diabetes mellitus without complications; F12.90 Cannabis use, unspecified, uncomplicated; F41.9 Anxiety disorder, unspecified; Z87.891 Personal history of nicotine dependence; Z79.84 Long term (current) use of oral hypoglycemic drugs; Z79.899 Other long term (current) drug therapy; Z88.0 Allergy status to penicillin; Z88.1 Allergy status to other antibiotic agents; Z91.011 Allergy to milk products
CPT/HCPCS: 99283 ×2; 10060 ×2; J2001

== ENCOUNTER 2024-01-21 20:06 | Emergency (ER) | payer OTHER ==
--- NOTE | 2024-01-21 20:27 | ED ---
ENT HPI - General Chief complaint: ENT Stated complaint: R ear pain Time Seen by Provider: 01/21/24 20:15 Source: patient Mode of arrival: ambulatory Limitations: no limitations - History of Present Illness Initial comments: 28-year-old female presenting with chief complaint of right ear pain. Pain started today. No bleeding or discharge from the ear. No hearing changes. No fevers. No cough, congestion, sore throat. No redness swelling or tenderness behind the ear. No neck pain or stiffness. No rash. - Related Data Home Medications Medication Instructions Recorded Confirmed Atorvastatin [Lipitor] 20 mg PO HS 07/25/21 07/25/21 Cyclobenzaprine [Flexeril] 10 mg PO TID PRN 07/25/21 07/25/21 Etonogestrel [Nexplanon] 68 mg SQ DIRECTED 07/25/21 07/25/21 Ibuprofen [Motrin] 800 mg PO TID PRN 07/25/21 07/25/21 metFORMIN HCL 500 mg PO AC-SUPPER 07/25/21 07/25/21 Previous Rx's Medication Instructions Recorded Amitriptyline HCl [Elavil] 25 mg PO HS 30 Days #30 tablet 07/31/21 Sulfamethox-Tmp 800-160Mg [Bactrim 1 each PO Q12HR #20 tab 01/08/24 Ds] Amoxicillin 875 mg PO Q12HR 7 Days #14 tablet 01/21/24 Loratadine 10 mg PO DAILY #20 tab 01/21/24 Allergies Allergy/AdvReac Type Severity Reaction Status Date / Time clavulanic acid Allergy Nausea & Verified 01/21/24 20:13 [From Augmentin] Vomiting amoxicillin AdvReac Nausea & Verified 01/21/24 20:13 Vomiting milk AdvReac Nausea & Verified 01/21/24 20:13 Vomiting Review of Systems ROS Statement: Those systems with pertinent positive or pertinent negative responses have been documented in the HPI. ROS Other: All systems not noted in ROS Statement are negative. Past Medical History Past Medical History: Diabetes Mellitus, GERD/Reflux Additional Past Medical History / Comment(s): chronic back pain. BRONCHITIS. bulding disc in lumbar History of Any Multi-Drug Resistant Organisms: None Reported Past Surgical History: Adenoidectomy, Appendectomy, Section, Ear Surgery, Orthopedic Surgery, Tonsillectomy Additional Past Surgical History / Comment(s): right ankle SX Past Anesthesia/Blood Transfusion Reactions: No Reported Reaction Past Psychological History: Anxiety Smoking Status: Former smoker Past Alcohol Use History: None Reported Past Drug Use History: Marijuana - Past Family History Father Family Medical History: Cancer General Exam Limitations: no limitations General appearance: alert, in no apparent distress Head exam: Present: atraumatic, normocephalic Eye exam: Present: normal appearance Expanded Ear exam: Present: normal external inspection TM/Canal exam: Effusion: Right TM Mouth exam: Present: normal external inspection Neck exam: Present: normal inspection. Absent: meningismus Respiratory exam: Absent: respiratory distress Neurological exam: Present: alert, oriented X3 Psychiatric exam: Present: normal affect, normal mood Skin exam: Present: warm, dry Course Vital Signs 01/21/24 20:11 Temperature 97.9 F Pulse Rate 103 H Respiratory 20 Rate Blood Pressure 119/72 O2 Sat by Pulse 98 Oximetry Medical Decision Making - Medical Decision Making Was pt. sent in by a medical professional or institution (, PA, RETAIL AND PROMOTIONS COORDINATOR, urgent care, hospital, or care home...) When possible be specific @ -No Did you speak to anyone other than the patient for history (EMS, parent, family, police, friend...)? What history was obtained from this source @ -No Did you review nursing and triage notes (agree or disagree)? Why? @ -I reviewed and agree with nursing and triage notes Were old charts reviewed (outside hosp., previous admission, EMS record, old EKG, old radiological studies, urgent care reports/EKG's, care home records)? Report findings @ -No old charts were reviewed Differential Diagnosis (chest pain, altered mental status, abdominal pain women, abdominal pain men, vaginal bleeding, weakness, fever, dyspnea, syncope, headache, dizziness, GI bleed, back pain, seizure, CVA, palpatations, mental health, musculoskeletal)? @ -Differential includes otitis media, otitis externa, mastoiditis, foreign body, this is not an all-inclusive list EKG interpreted by me (3pts min.). @ -As above X-rays interpreted by me (1pt min.). @ -None done CT interpreted by me (1pt min.). @ -None done U/S interpreted by me (1pt. min.). @ -None done What testing was considered but not performed or refused? (CT, X-rays, U/S, labs)? Why? @ -None What meds were considered but not given or refused? Why? @ -None Did you discuss the management of the patient with other professionals (professionals i.e. , PA, RETAIL AND PROMOTIONS COORDINATOR, lab, RT, psych nurse, social service worker, egg factory worker, teacher, aircraft electronics technical officer, welfare case worker)? Give summary @ -No Was smoking cessation discussed for >3mins.? @ -No Was critical care preformed (if so, how long)? @ -No Were there social determinants of health that impacted care today? How? (Homelessness, low income, unemployed, alcoholism, drug addiction, transportation, low edu. Level, literacy, decrease access to med. care, half-way, rehab)? @ -No Was there de-escalation of care discussed even if they declined (Discuss DNR or withdrawal of care, Hospice)? DNR status @ -No What co-morbidities impacted this encounter? (DM, HTN, Smoking, COPD, CAD, Cancer, CVA, ARF, Chemo, Hep., AIDS, mental health diagnosis, sleep apnea, morbid obesity)? @ -None Was patient admitted / discharged? Hospital course, mention meds given and route, prescriptions, significant lab abnormalities, going to OR and other pertinent info. @ -28-year-old female present with chief complaint of right ear pain that started today. On examination there is right-sided effusion with erythema s urrounding the border of the tympanic membrane. Patient is educated on today's findings. She is instructed to take an antihistamine for the next 3 days. If pain persists or worsens then she may begin taking amoxicillin. She is agreeable with this plan. Discharged home. Follow-up with PCP. Report back to ER with any new or worsening symptoms. Discussed return parameters and answered all questions. Patient conveyed verbal understanding and agreed to the plan. I discussed this case in detail with my attending Dr. Tomas Undiagnosed new problem with uncertain prognosis? @ -No Drug Therapy requiring intensive monitoring for toxicity (Heparin, Nitro, Insulin, Cardizem)? @ -No Were any procedures done? @ -No Diagnosis/symptom? @ -Serous otitis media Acute, or Chronic, or Acute on Chronic? @ -Acute Uncomplicated (without systemic symptoms) or Complicated (systemic symptoms)? @ -Uncomplicated Side effects of treatment? @ -No Exacerbation, Progression, or Severe Exacerbation? @ -No Poses a threat to life or bodily function? How? (Chest pain, [place], [place], pneumonia, PE, COPD, DKA, ARF, appy, cholecystitis, CVA, Diverticulitis, Homicidal, Suicidal, threat to staff... and all critical care pts) @ -No Disposition Clinical Impression: Serous otitis media Disposition: HOME SELF-CARE Condition: Good Instructions (If sedation given, give patient instructions): Ear Infection (ED) Additional Instructions: Follow-up with PCP. Report back to ER with any new or worsening symptoms. Prescriptions: Amoxicillin 875 mg PO Q12HR 7 Days #14 tablet Loratadine 10 mg PO DAILY #20 tab Is patient prescribed a controlled substance at d/c from ED?: No Referrals: Sarath Sykes DO [Primary Care Provider] - 1-2 days Time of Disposition: 20:27
[2024-01-21 20:31] VITALS: BP 119/72; PULSE 103; RESP 20; TEMP 97.9
== END 2024-01-21 20:58 | disposition home or self-care (01) ==
LOC: EC 20:06
DX: H65.91 Unspecified nonsuppurative otitis media, right ear (principal); Z87.891 Personal history of nicotine dependence; Z88.1 Allergy status to other antibiotic agents; Z88.0 Allergy status to penicillin; Z91.011 Allergy to milk products
CPT/HCPCS: 99282

== ENCOUNTER → 2024-03-03 | Outpatient (CLI) | payer OTHER ==
[2024-03-03 13:40] VITALS: BP 101/77; PULSE 93; RESP 16; TEMP 98.3
--- NOTE | 2024-03-03 14:09 | P.PN ---
Subjective DATE: 03/02/2024 FOLLOW UP VISIT. Patient returned to sleep center for follow-up visit for obstructive sleep apnea hypopnea syndrome. Patient was on treatment with CPAP, but feels some discomfort and return her CPAP unit. We discussed other options for treatment of obstructive sleep apnea hypopnea syndrome in details. Patient asked questions about inspire program. I explained her all details. She is not a candidate for this program because of her weight. Patient continued to have snoring and awakenings from sleep. Gardners sleepiness scale is increased to 15, which indicates sleepiness. MEDICATIONS:1. Trulicity once a week During physical exam: GENERAL: A pleasant patient without any distress. VITAL SIGNS: Please see below, weight 316.4 pounds, BMI 48.0. HEENT: PERRLA, EOMI. NECK: Supple. No JVD. LUNGS: Clear to percussion and to auscultation. Good air exchange. No wheezing or rhonchi. HEART: S1, S2 regular. ABDOMEN: Soft and nontender. EXTREMITIES: No clubbing or cyanosis. EYE SURGEON: Awake, alert, and oriented x3. No focal deficit. Impressions: 1. Obstructive sleep apnea hypopnea syndrome 2. Obesity, BMI 48.0. 3. Diabetes mellitus. 4. Status post tonsillectomy and adenoidectomy. 5. Status post . Plan: 1. Polysomnogram for evaluation of patient breathing during the sleep at the present time. 2. Sleep hygiene with regular time in bed for at least 8 hours. 3. Following plan after reading sleep study. 4. Precautions related to driving. No driving if feel any sleepiness. Patient is aware about civil and criminal liability for unsafe driving, promised to follow recommendations. Thank you very much for allowing me to participate in the management of your patient. Joey Braden MD, PhD, FAASM. Diplomat of [employer], Sleep Medicine Board by [employer] Driver Education Instructor of [facility] [place] Objective - Vital Signs Vital signs: Vital Signs Temp 98.3 F 03/03/24 13:24 Pulse 93 03/03/24 13:24 Resp 16 03/03/24 13:24 BP 101/77 03/03/24 13:24 Pulse Ox 96 03/03/24 13:24 FiO2 Intake & Output 03/02/24 03/03/24 03/03/24 18:59 06:59 18:59 Weight 316 kg
== END ==
LOC: 3 N SLEEP 13:07
PROVIDERS: ATTEND Internal Medicine
DX: G47.33 Obstructive sleep apnea (adult) (pediatric) (principal); E66.9 Obesity, unspecified; E11.9 Type 2 diabetes mellitus without complications; Z98.890 Other specified postprocedural states; Z90.89 Acquired absence of other organs; Z68.42 Body mass index [BMI] 45.0-49.9, adult; Z79.85 Long-term (current) use of injectable non-insulin antidiabetic drugs; Z88.0 Allergy status to penicillin; Z91.011 Allergy to milk products
CPT/HCPCS: 99212

== ENCOUNTER 2024-04-12 19:42 | Outpatient (CLI) | payer OTHER ==
--- NOTE | 2024-04-13 12:24 | P.PCN ---
Description of Procedure: POLYSOMNOGRAPHY REPORT PROCEDURE(S)/DATE(S): Polysomnography 04/07/2024 CLINICAL: Patient has been seen in the sleep center for evaluation of obstructive sleep apnea-hypopnea syndrome. Please see my consultation. Sleep study has been done for evaluation of patient breathing during the sleep. PROCEDURE: The standard montage for clinical polysomnography included the electroencephalogram, the electrooculogram, the mentalis surface electromyography and Lead II cardiography. The respiratory battery consisted of measurements of nasal/buccal air flow, pressure transducer measurements from nose, thoracic and/or abdominal effort and intercostal surface electromyography. Video monitoring has been done to check for any parasomnia events. Nocturnal oxyhemoglobin saturations were obtained by finger oximetry. Step-christian titration with positive airway pressure was utilized to control the respiratory events, if necessary. RESULTS: During the diagnostic sleep study sleep efficiency was slightly decreased to 83.6%. Latency to sleep onset was prolonged to 32.0 min. Sleep architecture showed stage NI was slightly short 4.3%, Delta sleep was normal 6.6%, REM sleep was significantly decreased to 9.2%. Respiratory channel showed 491 obstructive apneas, 0 mixed apneas, 0 central apneas, 100 hypopneas with lowest oxygen level 77%. Total apnea hypopnea index was 99.3. Heart rate was in the range between 72 and 91, average 81. EMG showed 0.7 periodic limb movements per hour with 0 micro-arousals per hour. IMPRESSIONS: 1. Extremely severe obstructive sleep apnea hypopnea syndrome. 2. No significant periodic limb movements have been documented. Please see other impressions from consultation PLAN: 1. The patient will have PAP titration for correction of respiratory abnormalities during the sleep. 2. Aggressive losing weight program. 3. Sleep hygiene with regular time in bed for at least 7-1/2 hours. 4. No driving if feeling sleepiness. Thank you very much for allowing me to participate in the management of your patient. Sincerely, Joey Braden MD, PhD, FAASM. Diplomat of [place], Sleep Medicine Board by [employer] Charge Histotechnologist of [facility] [place]
== END 2024-04-13 05:30 | disposition home or self-care (01) ==
LOC: 3 N SLEEP 19:42
PROVIDERS: ATTEND Internal Medicine
DX: G47.33 Obstructive sleep apnea (adult) (pediatric) (principal); Z88.0 Allergy status to penicillin; Z91.011 Allergy to milk products; Z88.8 Allergy status to other drugs, medicaments and biological substances
CPT/HCPCS: 95810

== ENCOUNTER 2024-05-25 19:29 | Outpatient (CLI) | payer OTHER ==
--- NOTE | 2024-05-26 10:58 | P.PCN ---
Description of Procedure: CLINICAL: Titration with positive air pressure has been done for correction of respiratory abnormalities during sleep. DESCRIPTION OF PROCEDURE: The standard montage for clinical polysomnography included the electroencephalogram, the electrocardiogram, the mentalis surface electromyography and Lead II cardiography. The respiratory battery consisted of measurements of nasal /buccal air flow, pressure transducer measurements from the nose, thoracic and /or abdominal effort and intercostal surface electromyography. Video monitoring has been done to check for any parasomnia events. Nocturnal oxyhemoglobin saturations were obtained by finger oximetry. Step-christian titration with positive airway pressure was utilized to control respiratory events. Raw data of sleep recording has been reviewed and is adequate. RESULTS: Sleep efficiency was normal 93.8%. Latency to sleep onset was normal 7.0 minutes.]. Sleep architecture showed stage N1 was short 2.4%, Delta sleep was normal 9.6%, REM sleep was normal 20.5%. Heart rate was minimum 81 BPM, maximum 93 BPM, average 87 BPM. EMG showed 2.8 periodic limb movements per hour with 0.4 micriarousals per hour. PAP titration have been done with CPAP up to the pressure 14 cm H2O. The best results were at the pressure 13 cm H2O. Apnea hypopnea index reduced to 0.5. At that pressure patient was in non-REM sleep and also in REM sleep. IMPRESSION: 1. Obstructive sleep apnea hypopnea syndrome on controle with PAP treatment. 2. No significant periodic limb movements have been documented. Please see other impressions from consultation. PLAN: 1. The patient will have treatment with positive air pressure equipment with the level of pressure AutoPAP 6-14 cm H2O and should use it every night for the whole night. 2. Watching and losing weight. 3. Sleep hygiene with regular time in bed for at least 8 hours. 4. No driving if feeling any sleepiness. 5. I will see the patient for follow up visit to explain the results of the test, recommendations, check compliance with treatment and make any necessary adjustment related to mask fitting, pressure and humidification. Thank you very much for allowing me to participate in the management of your patient. Sincerely, Joey Braden MD, PhD, FAASM Diplomat of [employer] Sleep Medicine Board of [employer] Team Psychologist of [facility] [place] cc: Carlene Sykes DO
== END 2024-05-26 05:35 | disposition home or self-care (01) ==
LOC: 3 N SLEEP 19:29
PROVIDERS: ATTEND Internal Medicine
DX: G47.33 Obstructive sleep apnea (adult) (pediatric) (principal); Z88.0 Allergy status to penicillin; Z88.8 Allergy status to other drugs, medicaments and biological substances; Z91.011 Allergy to milk products
CPT/HCPCS: 95811

== ENCOUNTER → 2024-07-26 | Outpatient (CLI) | payer OTHER ==
--- NOTE | 2024-08-19 11:43 | EM ---
EVENT MONITOR STUDY: A 7-day event monitor. All available rhythm strips were reviewed. Some of these were triggered by the patient with symptoms of heart racing and feeling dizzy and lightheaded. When the patient complained of lightheadedness, she was in a sinus rhythm at a rate of 119 beats per minute. On another occasion, when she complained of racing heart, also she was in a sinus rhythm at 117 beats per minute. So, the predominant rhythm appears to be sinus tachycardia and whenever she had dizziness or lightheadedness, she was in a sinus tach at about 118 beats per minute. There were isolated PACs and PVCs. No bradycardia. FINAL IMPRESSION: Sinus rhythm with sinus tachycardia noted. The patient's symptoms correlated with sinus tachycardia. No other significant arrhythmia. MMODL / IJN: [id number] /
== END | disposition home or self-care (01) ==
LOC: RADECHMAIN 07:28
PROVIDERS: ATTEND Family Medicine
DX: R00.2 Palpitations
CPT/HCPCS: 93270

== ENCOUNTER → 2024-09-01 | Outpatient (CLI) | payer OTHER ==
[2024-09-01 10:58] VITALS: BP 131/82; PULSE 92; RESP 16; TEMP 98.3
--- NOTE | 2024-09-01 11:20 | P.PROGSL ---
Subjective DATE: 09/01/2024 FOLLOW UP VISIT. Patient with obstructive sleep apnea hypopnea syndrome return to sleep center for follow-up visit. Information from previous visit have been reviewed. Patient is using CPAP but not every night and not for the whole night The patient does not have significant problems with the mask, PAP unit and humidification. Novice sleepiness scale is 3, which is normal. I checked information from PAP unit. PAP unit pressure is 6-14 cm H2O. Usage is about 50% of nights but only 1 night then 4 hours. Apnea Hypopnea Index is 1.5, which is normal. MEDICATIONS have been reviewed, please see below. During physical exam: GENERAL: A pleasant patient without any distress. VITAL SIGNS: Please see below, weight is 324 lbs. HEENT: PERRLA, EOMI.low position of soft palate, Mallapati [] . NECK: Supple. No JVD. LUNGS: Clear to percussion and to auscultation. Good air exchange. No wheezing or rhonchi. HEART: S1, S2 regular. ABDOMEN: Soft and nontender.[] EXTREMITIES: No clubbing or cyanosis. HAZARDOUS MATERIALS ANALYST: Awake, alert, and oriented x3. No focal deficit. Impressions: 1. Obstructive sleep apnea-hypopnea syndrome. Patient showed low compliance with CPAP treatment. Respiration normalized on treatment with CPAP. 2. Obesity, patient increased weight on 8 pounds comparing with the previous visit, BMI in the range of 50. 3. Diabetes mellitus, according to patient hemoglobin A1c in the range between 6 and 7. 4. Status post tonsillectomy and adenoidectomy. 5. Status post . Plan: 1. Continue using PAP equipment every night for the whole night. Patient promised to follow recommendations. We will prolong trial period for another 90 days. 2. Sleep hygiene with regular time in bed for at least 7.5-8 hours 3. PAP unit should stay lower then position of the head. 4. Advised patient to remove all remaining water from humidifier canister daily and make it dry after each usage. Refill canister with fresh distilled water before each usage. 5. Watching and losing weight. 6. Precautions related to driving. No driving if feel any sleepiness. 7. I will maintain prescription for PAP supplies including mask, tube, filters. 8. Follow up visit in 2 months or earlier if patient has any problems. Thank you very much for allowing me to participate in the management of your patient. Joey Braden MD, PhD, FAASM. Diplomat of [place] [employer], Sleep Medicine Board by [employer] Moderate Needs Teacher of [facility] [place] cc: Sarath Sykes DO Objective - Vital Signs Vital Signs: Vital Signs Temp 98.3 F 09/01/24 10:57 Pulse 92 09/01/24 10:57 Resp 16 09/01/24 10:57 BP 131/82 09/01/24 10:57 Pulse Ox 98 09/01/24 10:57 FiO2 Intake & Output 08/31/24 09/01/24 09/01/24 18:59 06:59 18:59 Weight 146.964 kg Home Medications: Home Medications Medication Instructions Recorded Confirmed Type Dulaglutide [Trulicity] 0.75 mg SQ 03/03/24 History Etonogestrel [Nexplanon] 68 mg SQ 03/03/24 History
== END ==
LOC: 3 N SLEEP 10:30
PROVIDERS: ATTEND Internal Medicine
DX: G47.33 Obstructive sleep apnea (adult) (pediatric) (principal); E11.9 Type 2 diabetes mellitus without complications; E66.9 Obesity, unspecified; Z98.890 Other specified postprocedural states; Z90.89 Acquired absence of other organs; Z99.89 Dependence on other enabling machines and devices; Z68.43 Body mass index [BMI] 50.0-59.9, adult; Z88.8 Allergy status to other drugs, medicaments and biological substances; Z88.0 Allergy status to penicillin; Z91.011 Allergy to milk products; Z79.85 Long-term (current) use of injectable non-insulin antidiabetic drugs
CPT/HCPCS: 99212

== ENCOUNTER 2024-09-16 09:02 | Day surgery (SDC) | payer OTHER ==
[2024-09-16] MEDS ORDERED: SCOPOLAMINE 1 MG/72 HR PATCH TRANSDERM ONE (10:09)
[2024-09-16] MEDS ORDERED: HYDROmorphone 0.5 MG/0.5 ML SYRINGE IVP PRN (10:09)
[2024-09-16] MEDS: IV FLUID CONTINUATION 1,000 ML IV ONE (10:36)
[2024-09-16 10:42] LABS: Glucose,Whole Blood 145 mg/dL (70-110)
[2024-09-16] MEDS: DEXAMETHASONE SOD PHOSPHATE 4 MG/ML 1 ML VIAL IV ONE (10:42)
[2024-09-16] MEDS: LACTATED RINGERS 1,000 ML IV SCH (10:42)
[2024-09-16] MEDS: ONDANSETRON 4 MG/2 ML VIAL IVP ONE (10:43)
[2024-09-16] MEDS: MIDAZOLAM 2 MG/2 ML VIAL IV PRN (10:52)
[2024-09-16] MEDS: fentaNYL (PF) 50 MCG/ML 2 ML AMP IVP STA (10:52)
--- NOTE | 2024-09-16 11:15 | P.ANPRN ---
Procedure Note - Anesthesia - Nerve Block Performed Left Adductor Canal Single Time Out Performed: Yes Date of Procedure: 09/16/24 Procedure Start Time: 10:52 Procedure Stop Time: 11:00 Location of Patient: PreOp Indication: Acute Post-Operative Pain, Requested by Surgeon Sedation Type: Sedate with meaningful contact maintained Preparation: Sterile Prep Position: Supine Needle Types: Pajunk Needle Gauge: 21 Ultrasound used to visualize needle placement: Yes Ultrasound used to observe medication spread: Yes Injectate: 0.5% Ropivacaine (see comment for volume) (15 ml + 15 ml NS + 4 mg Dexamethasone) Blood Aspirated: No Pain Paresthesia on Injection Noted: No Resistance on Injection: Normal Image Stored and Saved: Yes Events: Uneventful and Well Tolerated
--- NOTE | 2024-09-16 11:16 | P.ANPRN ---
Procedure Note - Anesthesia - Nerve Block Performed Left Popliteal Single Time Out Performed: Yes Date of Procedure: 09/16/24 Procedure Start Time: 11:01 Procedure Stop Time: 11:09 Location of Patient: PreOp Indication: Acute Post-Operative Pain, Requested by Surgeon Sedation Type: Sedate with meaningful contact maintained Preparation: Sterile Prep Position: Right Lateral Needle Types: Pajunk Needle Gauge: 21 Ultrasound used to visualize needle placement: Yes Ultrasound used to observe medication spread: Yes Injectate: 0.5% Ropivacaine (see comment for volume) (15 ml + 15 ml NS + 4 mg Dexamethasone) Blood Aspirated: No Pain Paresthesia on Injection Noted: No Resistance on Injection: Normal Image Stored and Saved: Yes Events: Uneventful and Well Tolerated
[2024-09-16] MEDS ORDERED: DEXAMETHASONE SOD PHOSPHATE 4 MG/ML 1 ML VIAL ONE (12:13)
[2024-09-16] MEDS ORDERED: SUCCINYLCHOLINE CHLORIDE 200 MG/10 ML VIAL IV ONE (12:13)
[2024-09-16] MEDS ORDERED: PROPOFOL 10 MG/ML 20 ML VIAL IV ONE (12:13)
[2024-09-16] MEDS ORDERED: LIDOCAINE 1% INJ 10MG/ML (20 ML MDV) ONE (12:13)
[2024-09-16] MEDS ORDERED: SODIUM CHLORIDE 0.9% (PF) 10 ML VIAL ONE (12:13)
[2024-09-16] MEDS ORDERED: HYDROmorphone (PF) 1 MG/ML ONE (12:13)
[2024-09-16] MEDS ORDERED: ROPIVACAINE 5 MG/ML 30 ML VIAL ONE (12:13)
[2024-09-16] MEDS ORDERED: MIDAZOLAM 2 MG/2 ML VIAL ONE (12:13)
[2024-09-16] MEDS: ceFAZolin 3 GM in SODIUM CHLORIDE 0.9% 100 ML IVPB PRN (12:15)
[2024-09-16] MEDS: ceFAZolin 1,000 MG in SODIUM CHLORIDE 0.9% 1,000 ML IRRIGATION ONE (12:15)
--- NOTE | 2024-09-16 13:13 | P.OP ---
Date of Procedure: 09/16/24 Preoperative Diagnosis: Gastroc equinus left leg Postoperative Diagnosis: same Procedure(s) Performed: gastroc recession left leg Implants: none Anesthesia: CLARITAA Surgeon: Chuck James Estimated Blood Loss (ml): 0 Pathology: none sent Condition: stable Disposition: PACU Description of Procedure: Prior to the patient being brought to the operating room, anesthesia administered nerve block on the surgical extremity. Once completed, the patient was taken into the operating room. Timeout was taken to confirm correct patient identifiers, correct laterality of surgery, and correct procedure. When all staff in the room were in agreement with the timeout, the patient was induced and placed under general anesthesia. The patient was then placed in the prone position on the operating room table. Appropriate padding was placed beneath the patient's face as well as in the thoracic area. Once anesthesia was satisfied with the patient positioning, a well-padded tourniquet was placed on the thigh. Then the leg was prepped and draped in the usual manner. The leg was exsanguinated and the tourniquet inflated to 250 mmHg. Attention was directed over the posterior aspect of the leg, where the gastroc recession was performed. A linear midline incision was made distal to the gastroc muscle belly. The incision was deepened down to the subcutaneous layer careful to identify, avoid, and retract any neurovascular structures and cauterize any bleeding vessels. Blunt dissection was carried down to level the deep fascia. The fascia was incised and then bluntly dissected off the gastroc aponeurosis. A transverse incision was made through the aponeurosis from medial to lateral. The ankle was dorsiflexed and a 2 cm gap was created in the aponeurosis, indicating a full release. There was also increased ankle dorsiflexion past neutral. Once completed,the wound was thoroughly irrigated. The subcutaneous layer was closed with 4-0 Vicryl. And skin closure done with 4-0 Stratafix in a running subcuticular manner.
[2024-09-16] MEDS: droPERidol 5 MG/2 ML VIAL IVP STA (13:37)
[2024-09-16 13:44] VITALS: TEMP 96.9
[2024-09-16] MEDS: KETOROLAC 15 MG/ML 1 ML VIAL IVP STA (14:00)
[2024-09-16 14:35] VITALS: RESP 20
[2024-09-16 15:38] VITALS: BP 114/76; PULSE 88
== END 2024-09-16 15:55 | disposition home or self-care (01) ==
LOC: OR 09:02
PROVIDERS: ATTEND Podiatrist
DX: M62.462 Contracture of muscle, left lower leg (principal); G89.18 Other acute postprocedural pain; G47.33 Obstructive sleep apnea (adult) (pediatric); E11.9 Type 2 diabetes mellitus without complications; F41.9 Anxiety disorder, unspecified; K21.9 Gastro-esophageal reflux disease without esophagitis; E66.01 Morbid (severe) obesity due to excess calories; Z79.899 Other long term (current) drug therapy; Z91.011 Allergy to milk products; Z88.8 Allergy status to other drugs, medicaments and biological substances
CPT/HCPCS: 64447; 81025; 64445; 27687; J2250; J0330; J1100; J0690 ×2; J2405; J2003; J3010; J1171; J2795; J1885; J2704; J1790

== ENCOUNTER → 2025-01-06 | Day surgery (SDC) | payer OTHER ==
[2025-01-04 12:24] VITALS: BMI 49.3
[~2025-01-06] MED LIST: DEXAMETHASONE SOD PHOSPHATE 4 MG/ML 1 ML VIAL ONE; GLYCOPYRROLATE 0.2 MG/ML 2 ML VIAL ONE; HYDROmorphone 0.5 MG/0.5 ML SYRINGE IVP PRN; LIDOCAINE 1% INJ 10MG/ML (20 ML MDV) ONE; MIDAZOLAM 2 MG/2 ML VIAL ONE; NEOSTIGMINE 1 MG/ML 10 ML VIAL ONE; PROPOFOL 10 MG/ML 20 ML VIAL IV ONE; ROCURONIUM 10 MG/ML (5 ML VIAL) IV ONE; ROPIVACAINE 5 MG/ML 30 ML VIAL ONE; SCOPOLAMINE 1 MG/72 HR PATCH TRANSDERM ONE; SODIUM CHLORIDE 0.9% (PF) 10 ML VIAL ONE; SUCCINYLCHOLINE CHLORIDE 200 MG/10 ML VIAL IV ONE; fentaNYL (PF) 50 MCG/ML 2 ML AMP ONE
[2025-01-06 08:11] LABS: Glucose,Whole Blood 121 mg/dL (70-110)
[2025-01-06] MEDS: DEXAMETHASONE SOD PHOSPHATE 4 MG/ML 1 ML VIAL IV ONE (08:14)
[2025-01-06] MEDS: LACTATED RINGERS 1,000 ML IV SCH (08:14)
[2025-01-06] MEDS: ONDANSETRON 4 MG/2 ML VIAL IVP ONE (08:15)
[2025-01-06] MEDS: MIDAZOLAM 2 MG/2 ML VIAL IV PRN (08:22)
[2025-01-06] MEDS: fentaNYL (PF) 50 MCG/ML 2 ML AMP IVP PRN (08:23)
[2025-01-06 08:29] LABS: Basophils % (A) 0 %; Eosinophils # (A) 0.2 k/uL (0-0.7); Eosinophils % (A) 2 %; HCT 37.8 % (34.0-46.0); HGB 11.7 gm/dL (11.4-16.0); Hypochromasia Slight; Lymphocytes # (A) 3.5 k/uL (1.0-4.8); Lymphocytes % (A) 32 %; MCH 24.4 pg (25.0-35.0); MCHC 30.9 g/dL (31.0-37.0); MCV 79.1 fL (80.0-100.0); Mean Platelet Volume 7.5; Monocytes # (A) 0.5 k/uL (0-1.0); Monocytes % (A) 4 %; Neutrophils # (A) 6.5 k/uL (1.3-7.7); Neutrophils % (A) 59 %; Platelet Count 445 k/uL (150-450); RBC 4.78 m/uL (3.80-5.40); RDW 14.9 % (11.5-15.5); WBC 10.9 k/uL (3.8-10.6)
[2025-01-06 08:34] LABS: HCG,Qualitative Serum Not Detected
[2025-01-06 08:37] LABS: African American GFR (CKD) >90 (>60 ml/min/1.73 sqM); Anion Gap 9 mmol/L; Blood Urea Nitrogen 11 mg/dL (7-17); Calcium 9.1 mg/dL (8.4-10.2); Carbon Dioxide 29 mmol/L (22-30); Chloride 99 mmol/L (98-107); Glucose 131 mg/dL (74-99); Non-African American GFR(CKD) >90 (>60 ml/min/1.73 sqM); Potassium 4.1 mmol/L (3.5-5.1); Sodium 137 mmol/L (137-145)
--- NOTE | 2025-01-06 08:37 | P.ANPRN ---
Procedure Note - Anesthesia - Nerve Block Performed Right Adductor Canal Single Time Out Performed: Yes Date of Procedure: 01/06/25 Procedure Start Time: : Procedure Stop Time: : Location of Patient: PreOp Indication: Acute Post-Operative Pain, Requested by Surgeon Sedation Type: Sedate with meaningful contact maintained Preparation: Sterile Prep Position: Supine Needle Types: Pajunk Needle Gauge: 21 Ultrasound used to visualize needle placement: Yes Ultrasound used to observe medication spread: Yes Injectate: 0.5% Ropivacaine (see comment for volume) (20 mL +10 mL of normal saline +4 mg dexamethasone) Blood Aspirated: No Pain Paresthesia on Injection Noted: No Resistance on Injection: Normal Image Stored and Saved: Yes Events: Uneventful and Well Tolerated
--- NOTE | 2025-01-06 08:39 | P.ANPRN ---
Procedure Note - Anesthesia - Nerve Block Performed Right Popliteal Single Time Out Performed: Yes Date of Procedure: 01/06/25 Procedure Start Time: : Procedure Stop Time: 08:36 Location of Patient: PreOp Indication: Acute Post-Operative Pain, Requested by Surgeon Sedation Type: Sedate with meaningful contact maintained Preparation: Sterile Prep Position: Left Lateral Needle Types: Pajunk Needle Gauge: 21 Ultrasound used to visualize needle placement: Yes Ultrasound used to observe medication spread: Yes Injectate: 0.5% Ropivacaine (see comment for volume) (20 mL +10 mL of normal saline +4 mg dexamethasone) Blood Aspirated: No Pain Paresthesia on Injection Noted: No Resistance on Injection: Normal Image Stored and Saved: Yes Events: Uneventful and Well Tolerated
[2025-01-06] MEDS: IV FLUID CONTINUATION 1,000 ML IV ONE (08:41)
[2025-01-06] MEDS: ceFAZolin 1,000 MG in SODIUM CHLORIDE 0.9% 1,000 ML IRRIGATION ONE (09:10)
[2025-01-06] MEDS: ceFAZolin 3 GM in SODIUM CHLORIDE 0.9% 100 ML IVPB PRN (09:10)
[2025-01-06 10:15] VITALS: TEMP 98
--- NOTE | 2025-01-06 10:21 | P.OP ---
Date of Procedure: 01/06/25 Preoperative Diagnosis: Gastroc equinus right leg Postoperative Diagnosis: Same Procedure(s) Performed: Gastroc recession right leg Implants: None Anesthesia: CLARITAA Surgeon: Chuck James Estimated Blood Loss (ml): 1 Pathology: none sent Condition: stable Disposition: PACU Description of Procedure: Prior to the patient being brought to the op room, anesthesia administered a nerve block on the operative extremity. The patient was brought into the oper ative room where a timeout was taken to confirm correct patient identifiers, correct laterality of surgery, and correct procedure. Once all staff in the room were in agreement the timeout, patient is due to placement on anesthesia. She is then rolled to the operating table in the prone position. Anesthesia was satisfied with positioning, a well-padded tourniquet was placed on the right thigh and the right leg was prepped and draped usual manner. The right leg was exsanguinated, the knee flexed, and the tourniquet inflated to 250 mmHg. Attention is directed over the posterior aspect of the leg where a midline incision was made distal to the gastroc muscle belly. The incision was deepened down through the subcutaneous layer careful to identify, void, and retracting neurovascular structures and cauterize any bleeding vessels. Blunt dissection was carried through the subcutaneous layer down to the deep fascia. The deep fascia was incised and reflected from the underlying aponeurosis medially and laterally. The aponeurosis was isolated and then a transverse incision was made from medial to lateral, taking care to avoid as much trauma to the underlying muscle belly as possible. Once the release was completed, the ankle was dorsiflexed and appropriate gapping was noted at the resection site, indicating a full release. The wound was irrigated with antibiotic saline. The deep fascia was closed with 2-0 Vicryl. Subcutaneous closure was done with 4-0 Monocryl. And skin closure was done with 4-0 Stratafix in a running subcuticular manner. Dermal glue Steri-Strips were placed over the incision. An Arthrex jumpstart and dry sterile dressing applied to the leg. The tourniquet was released and capillary refill returned all digits on the foot. The patient was placed in a well-padded, well molded plaster posterior mold/sugar-tong splint. The ankle was held in dorsiflexion as the splint dried. Once dried the patient was rolled back onto the transfer table in the supine position. Anesthesia was reversed and the patient was taken recovery with vital signs stable.
[2025-01-06 10:23] LABS: Glucose,Whole Blood 134 mg/dL (70-110)
[2025-01-06 10:46] VITALS: RESP 16
[2025-01-06 10:51] LABS: Glucose,Whole Blood 130 mg/dL (70-110)
[2025-01-06 11:38] VITALS: BP 138/88; PULSE 86
== END | disposition home or self-care (01) ==
LOC: OR 06:48
PROVIDERS: ATTEND Podiatrist
DX: M62.461 Contracture of muscle, right lower leg (principal); G89.18 Other acute postprocedural pain; E11.9 Type 2 diabetes mellitus without complications; F41.9 Anxiety disorder, unspecified; M41.9 Scoliosis, unspecified; J30.2 Other seasonal allergic rhinitis; K21.9 Gastro-esophageal reflux disease without esophagitis; E66.01 Morbid (severe) obesity due to excess calories; F12.90 Cannabis use, unspecified, uncomplicated; Z79.85 Long-term (current) use of injectable non-insulin antidiabetic drugs; Z79.899 Other long term (current) drug therapy; Z88.1 Allergy status to other antibiotic agents; Z68.42 Body mass index [BMI] 45.0-49.9, adult
CPT/HCPCS: 27687; 64447; 64445; 80048; 85025; 84703; J2250; J0330; J1100; J2710; J0690 ×2; J2405; J2003; J3010; J2795; J2704; J1596

== ENCOUNTER → 2025-04-08 | Outpatient (CLI) | payer OTHER ==
[2025-04-08 13:15] LABS: Basophils # (A) 0.05 X 10*3/uL (0.00-0.10); Basophils % (A) 0.6 %; Eosinophils # (A) 0.17 X 10*3/uL (0.04-0.35); Eosinophils % (A) 1.9 %; HCT 35.4 % (37.2-46.3); HGB 10.6 g/dL (12.0-15.0); Lymphocytes # (A) 3.64 X 10*3/uL (0.90-5.00); Lymphocytes % (A) 40.6 %; MCH 23.9 pg (27.0-32.0); MCHC 29.9 g/dL (32.0-37.0); MCV 79.9 FL (80.0-97.0); Mean Platelet Volume 10.1 FL (9.5-12.2); Monocytes # (A) 0.46 X 10*3/uL (0.20-1.00); Monocytes % (A) 5.1 %; NRBC Per 100 WBC 0 X 10*3/uL (0.00-0.01); Neutrophils # (A) 4.63 X 10*3/uL (1.80-7.70); Neutrophils % (A) 51.6 %; Platelet Count 401 X 10*3/uL (140-440); RBC 4.43 X 10*6/uL (4.10-5.20); RDW 14.1 % (11.5-14.5); WBC 8.97 X 10*3/uL (4.50-10.00)
[2025-04-08 13:44] LABS: % Iron Saturation 6.25 (12.00-45.00); ALT 15 U/L (8-44); AST 16 U/L (13-35); BUN/Creat Ratio 18.86 Ratio (12.00-20.00); Blood Urea Nitrogen 13.2 mg/dL (9.0-27.0); Calcium 9.3 mg/dL (8.7-10.3); Carbon Dioxide 25.4 mmol/L (21.6-31.8); Chloride 101 mmol/L (96-109); Chol/HDL Ratio 5.24 Ratio; Ferritin 22.9 ng/mL (10.0-291.0); Glucose 112 mg/dL (70-110); Iron 24 UG/DL (50-170); LDL Cholesterol,Calculated 146.3 mg/dL (0.0-131.0); Potassium 4.4 mmol/L (3.5-5.5); Sodium 139 mmol/L (135-145); Total Iron Binding Capacity 384 UG/DL (228-460); VLDL Calculation 13.08 mg/dL (5.00-40.00)
== END | disposition home or self-care (01) ==
LOC: LABWHC1 08:19
PROVIDERS: ATTEND Family Medicine
DX: I10 Essential (primary) hypertension (principal); D50.9 Iron deficiency anemia, unspecified; E78.5 Hyperlipidemia, unspecified; E11.9 Type 2 diabetes mellitus without complications
CPT/HCPCS: 36415; 80048; 80061; 82306; 82728; 83036; 83540; 83550; 84450; 84460; 85025

== ENCOUNTER 2025-04-24 06:58 | Day surgery (SDC) | payer OTHER ==
[2025-04-19 16:23] VITALS: BMI 47.0
[2025-04-24] MEDS: SODIUM CHLORIDE 0.9% 1,000 ML IV SCH (08:04)
[2025-04-24] MEDS: IV FLUID CONTINUATION 1,000 ML IV ONE (08:06)
[2025-04-24 08:10] VITALS: BP 112/69; PULSE 84; RESP 16; TEMP 98.5
--- NOTE | 2025-04-24 14:35 | P.EPPROC ---
- EP Procedure Note Electrophysiology Procedure Note: Diagnosis Recurrent presyncope 12 EKG shows sinus rhythm normal MO narrow QRS normal ST segments Tilt able test per protocol baseline blood pressure 123/63 mmHg baseline heart rate 87 beats a minute. She was complaining of pressure in the chest when she was lying flat with normal EKG Patient was tilted upright on maculas centigrays per protocol No significant change in heart rate or blood pressure Blood pressure was around 110 mmHg systolic and heart rates were in the low 90s She complained of a variety of symptoms including chest heaviness, seeing squiggly lines, blurred vision, pounding in the chest, dizziness, worsening chest discomfort shortness of breath and then finally feeling sleepy No evidence for neurocardiogenic syncope Impression Minimal increase in heart rate with tilt table testing No significant change in blood pressure Symptoms out of proportion to her vital signs
== END 2025-04-24 10:00 | disposition home or self-care (01) ==
LOC: CATHEP 06:58
PROVIDERS: ATTEND Internal Medicine Clinical Cardiac Electrophysiology
DX: R55 Syncope and collapse (principal); E11.9 Type 2 diabetes mellitus without complications; E66.01 Morbid (severe) obesity due to excess calories; Z79.85 Long-term (current) use of injectable non-insulin antidiabetic drugs; Z68.42 Body mass index [BMI] 45.0-49.9, adult
CPT/HCPCS: 84703; 93660